=== PATIENT | female | born 1975 | race Caucasian/White ===

== ENCOUNTER 2016-03-01 19:48 | Emergency (ER) | payer OTHER ==
[~2016-03-01] VITALS: Ht 167.6 cm; Wt 102.1 kg
[~2016-03-01 19:48] MED LIST: CARB1CAP10 PO; LEVO137T3 PO; LORA0.5T12 PO
[2016-03-01 20:08] VITALS: Ht 167.6 cm; Wt 102.1 kg
[2016-03-01] MEDS ORDERED: OXYCODONE IR HOME PACK PO ONE (21:00)
[2016-03-01 21:27] LABS: URINE APPEARANCE CLOUDY (CLEAR); URINE BILIRUBIN NEG (NEG); URINE COLOR YELLOW; URINE EPITHELIAL CELL AUTO >30 /lpf (0-5); URINE NITRITE NEG (NEG); URINE SPECIFIC GRAVITY 1.023 (1.000-1.030); UROBILINOGEN NEG (NEG)
[2016-03-01] MEDS ORDERED: LRS10 PO (21:33)
[2016-03-01 21:40] LABS: MANUAL MICROSCOPIC REQUIRED? NO; REVIEW REQ? NO
[2016-03-01] MEDS ORDERED: IBUP-1050 PO (21:44)
[2016-03-01] MEDS ORDERED: NITROFURANTOIN MONOHYDRATE 100 MG CAP PO STA (21:51)
[2016-03-01] MEDS ORDERED: OXYC1TAB3 PO (21:54)
[2016-03-01] MEDS ORDERED: NITR-5 PO (21:54)
[2016-03-01 22:11] VITALS: BP 151/108; PULSE 75; TEMP 36.9; O2SAT 100
--- NOTE | 2016-03-01 22:41 | EMERGENCY ROOM VISIT NOTE ---
History Report prepared by Geremias: Macey Mcclure Under the Supervision of: Dr. Timmy Reich M.D. First contact with patient: 20:14 Chief Complaint: KIDNEY STONE Stated Complaint: KIDNEY STONE, NAUSEA, PAIN, BURNING, DIZZY History of Present Illness The patient is a 40 year old female who presents to the Emergency Room with complaints of constant back pain beginning 2 weeks ago. The patient states that 2 weeks ago she was going to put her dog down and she felt like she slipped something in her back. She reports that she went to see her doctor 2 days later and was found to have a bulged disc in her back. She went to [facility] and had a CT scan and she was found to have a 7mm stone in her right kidney so they told her she needed to come here for urology follow up. She rates her pain as an 8.5/10 in severity. She notes that her pain radiates into her knee and a burning radiation into her groin. The patient has associated nausea, dizziness, urinary frequency, darker urine, and diarrhea.She denies any urinary incontinence, weakness and new numbness. The patient had the CT results on her cell phone. The CT from [facility] reports a broad based disc bulge that is greater on the right side at T12/L1. Bilateral nonobstructing renal calculi 7mm on the right side 4mm on the left side. Source of History: patient Onset: 2 weeks ago Position: back Symptom Intensity: 8.5/10 Quality: burning Timing: constant Modifying Factors (Worsening): movement Associated Symptoms: + diarrhea, + nausea, + urinary symptoms, No numbness Note: The patient has associated dizziness, urinary frequency, darker urine.She denies any urinary incontinence and new numbness Review of Systems See HPI for pertinent positives & negatives. A total of 10 systems reviewed and were otherwise negative. Past Medical & Surgical Medical Problems: (1) Asthma (2) Hypothyroid Family History Cancer Diabetes mellitus Hypertension Kidney disease Social History Smoking Status: Never Smoker Alcohol Use: occasionally Drug Use: none Marital Status: single Housing Status: lives alone Occupation Status: employed Current/Historical Medications Scheduled Carbamazepine (Tegretol-Xr), 100 MG PO DAILY Citalopram (Citalopram Hydrobromide), 20 MG PO DAILY Levothyroxine Sodium (Levothyroxine Sodium), 137 MCG PO DAILY Nitrofurantoin Monohyd Macrocr (Macrobid), 100 MG PO BID Scheduled PRN Acetaminophen (Tylenol), 1,000 MG PO Q8 PRN for Pain Albuterol Hfa (Ventolin Hfa), 2 PUFFS INH QID PRN for Asthma Symptoms Baclofen (Baclofen), 5 MG PO TID PRN for Muscle Spasm Epinephrine (Epipen), 0.3 MG IM UD PRN for Anxiety Ibuprofen (Advil), 800 MG PO Q8 PRN for Pain Lorazepam (Lorazepam), 0.5 MG PO BID PRN for Anxiety Oxycodone Ir (Roxicodone Ir), 5 MG PO Q4H PRN for Pain Allergies Coded Allergies: Clindamycin (Verified Allergy, Severe, RED FACE, WHEEZING, 02/17/16) Hydrocodone (Verified Allergy, Severe, RED FACE, WHEEZING, 02/17/16) Ketorolac Tromethamine (Verified Allergy, Severe, RED FACE, 02/17/16) Metoclopramide (Verified Allergy, Severe, INCREASED HEART RATE, 02/17/16) ONLY IV Oxycodone (Verified Allergy, Severe, RED FACE, WHEEZING, 02/17/16) Tramadol (Verified Allergy, Severe, RED FACE, WHEEZING, 02/17/16) Eucalyptus Oil (Verified Allergy, Intermediate, skin pedro, gets red., ) Iodinated Diagnostic Agents (Verified Allergy, Intermediate, anaphylactic , 02/17/16) Metaxalone (Verified Allergy, Intermediate, flushed, red, wheezy, nauseous., 02/17/16) Sulfa Antibiotics (Verified Allergy, Intermediate, red face, wheezing, ) Codeine (Unverified Allergy, Mild, 02/17/16) Shellfish (Unverified Allergy, Mild, 02/17/16) Fentanyl (Verified Allergy, Unknown, HOT/SICK, 02/17/16) Diphenhydramine (Verified Adverse Reaction, Severe, INCREASED HEART RATE, 02/17/16) IF GIVEN FAST IV PUSH Physical Exam Vital Signs Date Time Temp Pulse Resp B/P Pulse Ox O2 Delivery O2 Flow Rate FiO2 03/01/16 22:11 36.9 75 18 151/108 100 03/01/16 20:08 36.9 86 20 138/95 100 Room Air Physical Exam Constitutional: Vital signs reviewed. Eyes: Pupils are equal round reactive to light. Conjunctiva are noninjected. ENT: Pharynx is clear without erythema or exudate. Mucous membranes are moist. Neck supple without meningeal signs. Respiratory: Clear to auscultation bilaterally. Breath sounds are equal bilaterally. Cardiovascular: Regular rate and rhythm. No rubs or gallops. GI: Soft, nondistended and nontender. Bowel sounds are present. Musculoskeletal: Positive straight leg raise bilaterally, greater on the right side. No CVA tenderness. Integumentary: No cyanosis. Neurological: The patient is awake and alert. No focal deficits. Motor and sensation are intact in the lower extremities bilaterally. Psychiatric: Normal affect. Medical Decision & Procedures Laboratory Results Test 03/01/16 20:55 Urine Color YELLOW Urine Appearance CLOUDY (CLEAR) Urine pH 6.0 (4.5-7.5) Urine Specific [place] 1.023 (1.000-1.030) Urine Protein NEG (NEG) Urine Glucose (UA) NEG (NEG) Urine Ketones NEG (NEG) Urine Occult Blood NEG (NEG) Urine Nitrite NEG (NEG) Urine Bilirubin NEG (NEG) Urine Urobilinogen NEG (NEG) Urine Leukocyte Esterase TRACE (NEG) Urine WBC (Auto) 10-30 /hpf (0-5) Urine RBC (Auto) 0-4 /hpf (0-4) Urine Hyaline Casts (Auto) 1-5 /lpf (0-5) Urine Epithelial Cells (Auto) >30 /lpf (0-5) Urine Bacteria (Auto) 2+ (NEG) Laboratory results as reviewed by me. Medications Administered Medications (Trade) Dose Ordered Sig/[place] Route Start Time Stop Time Status Last Admin Dose Admin Oxycodone HCl (Roxicodone Immediate Rel 5MG Home Pack) 1 homepack UD ONCE PO 03/01/16 21:00 03/01/16 21:01 DC 03/01/16 22:03 1 HOMEPACK Nitrofurantoin Macrocrystals (Macrobid Cap) 100 mg NOW STAT PO 03/01/16 21:51 03/01/16 21:53 DC 03/01/16 22:03 100 MG ED Course 2036: The patient was evaluated in room B6. A complete history and physical exam was performed. 2100: Oxycodone HCl 1 homepack PO. 0: I discussed the urine test with the patient and the treatment plan. 2150: Macrobid Cap 100mg PO. 2155: Upon reevaluation, the patient appeared to have improvement of her symptoms. I discussed tonight's findings with the patient . She verbalized agreement of the treatment plan. The patient was discharged home. Medical Decision This is a 40-year-old female who presents with right-sided lower back pain. Differential diagnosis includes lumbar disc disease, radiculopathy, kidney stone , UTI, strain. I did perform a limited focused review of portions of the patient's old chart on the electronic medical record. The patient had a CT in November which showed bilateral kidney stones and some fluid-filled mildly thickened proximal jejunal loops. I did evaluate the patient as noted above. The patient is presenting with pain in her lower back which developed after putting her dog down. She had a CT scan at another hospital which demonstrates a disc bulge on the right side at T12 and L1. She does have pain radiating into her groin and leg. Her symptoms are consistent with radiculopathy. She does have intrarenal calculi which are likely not causing her pain. There is no evidence of obstructive uropathy. She also has no signs of cauda equina syndrome or neurologic deficit to suggest spinal cord injury. I did recommend she follow up with her doctor for physical therapy or referral to spinal surgery. She was also advised follow up with a urologist as needed. I did order a urinalysis which was equivocal. After discussion with the patient she preferred to be treated although she does not have any urinary symptoms. A urine culture was sent. The patient was given Macrobid and the oxycodone home pack. She is not allergic to oxycodone. She has had in the past without reaction. She was discharged with a prescription for oxycodone and Macrobid. [place] Drug Monitoring Program Search Results: patient reviewed within database Drug Monitoring Findings: She received 6 Percocet February 19, 2016. Impression Primary Impression: Lumbar radiculopathy Additional Impression: Abnormal finding on urinalysis Scribe Attestation The scribe's documentation has been prepared under my direct and personally reviewed by me in its entirety. I confirm that the note above accurately reflects all work, treatment, procedures, and medical decision making performed by me. Departure Information Dispostion Home / Self-Care Prescriptions Oxycodone Ir (Roxicodone Ir) 5 Mg Tab 5 MG PO Q4H Y for Pain, #14 TAB Prov: Timmy Reich M.D. 03/01/16 Nitrofurantoin Monohyd Macrocr (Macrobid) 100 Mg Cap 100 MG PO BID, #13 CAP Prov: Timmy Reich M.D. 03/01/16 Referrals No Doctor, Assigned (PCP) Forms HOME CARE DOCUMENTATION FORM, IMPORTANT VISIT INFORMATION Patient Instructions A Signature Page, ED Back Pain Acute Chronic, [facility] Additional Instructions You have been examined and treated today on an emergency basis only. This is not a substitute for, or an effort to provide, complete comprehensive medical care. It is impossible to recognize and treat all injuries or illnesses in a single emergency department visit. It is therefore important that you follow up closely with your physician. Call as soon as possible for an appointment. Return for worsening symptoms or if you develop fever, vomiting, abdominal pain , loss of control of your bowel or bladder, numbness or weakness to your legs, numbness to your private area, difficulty urinating, or any other concerning symptoms.
[2016-03-31] MEDS ORDERED: OXYC1TAB3 PO (12:23)
[2016-10-20] MEDS ORDERED: OXYC-57 PO (14:26)
[2016-10-20] MEDS ORDERED: XRL15 PO (14:26)
[2016-10-21] MEDS ORDERED: XRL15 PO (14:46)
[2016-10-21] MEDS ORDERED: VNTHFA/IN INH (14:47)
[2017-01-02] MEDS ORDERED: XRL15 PO (17:20)
== END 2016-03-01 22:12 | disposition home or self-care (01) ==
LOC: C.EDB 19:50
DX: M54.16 Radiculopathy, lumbar region (principal); R82.90 Unspecified abnormal findings in urine; J45.909 Unspecified asthma, uncomplicated; E03.9 Hypothyroidism, unspecified; N20.0 Calculus of kidney

== ENCOUNTER → 2016-03-24 | Outpatient (CLI) | payer OTHER ==
[~2016-03-24] MED LIST changes: +ACET-1256 PO; +AMT50 PO; +ATV5X PO; -CARB1CAP10 PO; +CLX/20 PO; +CYCL10TA6 PO; +EPP3/2 IM; +IBUP-1050 PO; -LEVO137T3 PO; -LORA0.5T12 PO; +LRS10 PO; +METH500T PO; +NAPR-1169 PO; +NITR-5 PO; +OXYC-57 PO; +OXYC1TAB3 PO; +PRED20TA2 PO; +PREG1CAP36 PO; +SYN137 PO; +TGRSR100 PO; +VNTHFA/IN INH; +XRL15 PO
--- NOTE | 2016-03-24 08:46 | DIAGNOSTIC IMAGING REPORT ---
KUB CLINICAL HISTORY: Nephrolithiasis. COMPARISON STUDY: CT of the abdomen and pelvis December 01, 2015. FINDINGS: There is a 5 mm calculus within lower pole of the left kidney and a 4 mm calculus within the lower pole of the right kidney. No ureteral calculi are identified. A left inferior pelvic calcification represents a phlebolith. The bowel gas pattern is normal. IMPRESSION: 1. Bilateral nephrolithiasis. 2. No ureteral calculi identified. Electronically signed by: Martin Joyce M.D. 03/24/2016 8:44 AM Dictated Date/Time: 03/24/2016 8:42 AM
[2016-03-24 09:32] LABS: URINE APPEARANCE CLEAR (CLEAR); URINE BILIRUBIN NEG (NEG); URINE COLOR YELLOW; URINE NITRITE NEG (NEG); URINE PH 5.5 (4.5-7.5); URINE SPECIFIC GRAVITY 1.023 (1.000-1.030); UROBILINOGEN NEG (NEG)
[2016-03-24 09:38] LABS: MANUAL MICROSCOPIC REQUIRED? NO; REVIEW REQ? NO
[2016-03-24 09:45] LABS: BLOOD UREA NITROGEN 13 mg/dl (7-18); BUN/CREATININE RATIO 13.4 (10-20); CARBON DIOXIDE 23 mmol/L (21-32); CHLORIDE 107 mmol/L (98-107); CREATININE 0.99 mg/dl (0.60-1.20); POTASSIUM 4.1 mmol/L (3.5-5.1); SODIUM 140 mmol/L (136-145)
[2016-03-24 09:53] LABS: BASO % 0.5 %; BASO ABS # 0.03 K/uL (0-0.2); EOS % 3.7 %; HEMATOCRIT 41.4 % (37-47); IG% 0.2 %; MEAN CELL VOLUME 86.3 fL (80-100); MEAN CORPUSCULAR HEMOGLOBIN 29.2 pg (25-34); MEAN CORPUSCULAR HGB CONC 33.8 g/dl (32-36); MONO % 8.6 %; PLATELET COUNT 285 K/uL (130-400)
[2016-03-24 10:36] LABS: COMPLETE YES
== END | disposition home or self-care (01) ==
LOC: C.RAD 07:48
PROVIDERS: ATTEND Urology
DX: N20.0 Calculus of kidney (principal)

== ENCOUNTER 2016-03-26 21:05 | Emergency (ER) | payer OTHER ==
[~2016-03-26] VITALS: Ht 167.6 cm; Wt 104.0 kg
[~2016-03-26 21:05] MED LIST changes: -ACET-1256 PO; -AMT50 PO; -ATV5X PO; -CLX/20 PO; -CYCL10TA6 PO; -EPP3/2 IM; -METH500T PO; -NAPR-1169 PO; -OXYC-57 PO; -PRED20TA2 PO; -PREG1CAP36 PO; -SYN137 PO; -TGRSR100 PO; -VNTHFA/IN INH; -XRL15 PO
[2016-03-26 21:08] VITALS: TEMP 36.5; Ht 167.6 cm; Wt 104.0 kg
[2016-03-26] MEDS ORDERED: SODIUM CHLORIDE 0.9% 1000ML 500 ML IV ONE (21:23)
[2016-03-26] MEDS ORDERED: ONDANSETRON 8 MG/54 ML D5W IV STA (21:56)
[2016-03-26 22:00] LABS: HEMATOCRIT 40.8 % (37-47); MEAN CORPUSCULAR HEMOGLOBIN 30.1 pg (25-34); MEAN CORPUSCULAR HGB CONC 34.6 g/dl (32-36); MEAN PLATELET VOLUME 9.4 fL (7.4-10.4); PLATELET COUNT 286 K/uL (130-400); RED BLOOD COUNT 4.69 M/uL (4.2-5.4); WHITE BLOOD COUNT 7.58 K/uL (4.8-10.8)
[2016-03-26] MEDS: HYDROmorphone INJ 1 MG/ML SYR IV PRN ×2 (22:10→23:47)
[2016-03-26 22:13] LABS: URINE APPEARANCE CLEAR (CLEAR); URINE BILIRUBIN NEG (NEG); URINE COLOR YELLOW; URINE EPITHELIAL CELL AUTO >30 /lpf (0-5); URINE NITRITE NEG (NEG); URINE SPECIFIC GRAVITY 1.019 (1.000-1.030); UROBILINOGEN NEG (NEG); ZZUR CULT IF INDIC CLEAN CATCH NO
[2016-03-26 22:14] LABS: MANUAL MICROSCOPIC REQUIRED? NO; REVIEW REQ? NO
[2016-03-26 22:16] LABS: BUN/CREATININE RATIO 14.7 (10-20); CALCIUM 8.6 mg/dl (8.5-10.1); CREATININE 1.1 mg/dl (0.60-1.20)
--- NOTE | 2016-03-26 22:47 | DIAGNOSTIC IMAGING REPORT ---
ABDOMEN AND PELVIS CT WITHOUT CONTRAST CT DOSE: 1566.10 mGy.cm HISTORY: Pain right flank pain TECHNIQUE: Multiaxial CT images of the abdomen and pelvis were performed without the use of intravenous and oral contrast according to the standard department stone protocol. COMPARISON STUDY: 12/01/2015 FINDINGS: Lung bases remain clear. Liver spleen and pancreas are unremarkable. Prior cholecystectomy. Bilateral nonobstructing renal calcifications unchanged in the prior study. No evidence for an obstructing urinary tract calculus. Nonobstructive bowel pattern. Small amount of free fluid surrounding the right ovary possibly on the basis of a small partial cyst rupture. Nonobstructive bowel pattern. The appendix is not well seen although a significant right lower quadrant inflammatory process is not appreciated. IMPRESSION: 1. Small bilateral nonobstructing renal calcifications. 2. No evidence for an obstructing urinary tract calculus. 3. Nonobstructive bowel pattern. 4. Probable small partially ruptured right ovarian cyst. Electronically signed by: Skinny Botello M.D. 03/26/2016 10:45 PM Dictated Date/Time: 03/26/2016 10:41 PM
[2016-03-27] MEDS ORDERED: OXYC1TAB3 PO (00:28)
[2016-03-27] MEDS ORDERED: OXYCODONE IR HOME PACK PO ONE (00:30)
[2016-03-27 01:02] VITALS: BP 132/71; PULSE 76; O2SAT 97
--- NOTE | 2016-03-27 03:16 | EMERGENCY ROOM VISIT NOTE ---
History Report prepared by Geremias: Dereck Redman Under the Supervision of: Dr. Rodriguez Mendez M.D. First contact with patient: 21:46 Chief Complaint: FLANK PAIN Stated Complaint: KIDNEY STONES History of Present Illness The patient is a 40 year old female who presents to the Emergency Room with complaints of persistent right flank pain for the past few days. She rates the discomfort as an 8.5 out of 10 in severity and describes it as a stabbing pain. This discomfort radiates into her abdomen. She also complains of nausea and diarrhea. The patient had an appointment 2 days ago where they did blood-work and x-rays. The patient talked with Dr. Montes earlier today who recommended she present to the ED for further evaluation to see if an emergent procedure is necessary after doing further testing. Pt denies LOC, headache, fevers, chills, diaphoresis, visual changes, neck pain, chest pain, breathing difficulties, vomiting, melena, hematochezia, numbness, weakness, lymphadenopathy, rash, or other complaints. Source of History: patient Onset: past few days Position: other (right flank) Symptom Intensity: 8.5/10 Quality: stabbing Timing: other (persistent) Associated Symptoms: + abdominal pain (radiation to abdomen), + diarrhea, + nausea Review of Systems See HPI for pertinent positives and negatives. A total of ten systems were reviewed and were otherwise negative. Past Medical & Surgical Medical Problems: (1) Asthma (2) Hypothyroid Family History Cancer Diabetes mellitus Hypertension Kidney disease Social History Smoking Status: Never Smoker Alcohol Use: occasionally Drug Use: none Marital Status: single Housing Status: lives alone Occupation Status: employed Current/Historical Medications Scheduled Carbamazepine (Tegretol-Xr), 100 MG PO DAILY Citalopram (Citalopram Hydrobromide), 20 MG PO DAILY Levothyroxine Sodium (Levothyroxine Sodium), 137 MCG PO DAILY Scheduled PRN Acetaminophen (Tylenol), 1,000 MG PO Q8 PRN for Pain Albuterol Hfa (Ventolin Hfa), 2 PUFFS INH QID PRN for Asthma Symptoms Epinephrine (Epipen), 0.3 MG IM UD PRN for Anxiety Ibuprofen (Advil), 800 MG PO Q8 PRN for Pain Lorazepam (Lorazepam), 0.5 MG PO BID PRN for Anxiety Oxycodone Ir (Roxicodone Ir), 1-2 TAB PO Q4H PRN for Pain Allergies Coded Allergies: Clindamycin (Verified Allergy, Severe, RED FACE, WHEEZING, 03/26/16) Hydrocodone (Verified Allergy, Severe, RED FACE, WHEEZING, 03/26/16) Ketorolac Tromethamine (Verified Allergy, Severe, RED FACE, 03/26/16) Metoclopramide (Verified Allergy, Severe, INCREASED HEART RATE, 03/26/16) ONLY IV Oxycodone (Verified Allergy, Severe, RED FACE, WHEEZING, 03/26/16) Tramadol (Verified Allergy, Severe, RED FACE, WHEEZING, 03/26/16) Eucalyptus Oil (Verified Allergy, Intermediate, skin pedro, gets red., ) Iodinated Diagnostic Agents (Verified Allergy, Intermediate, anaphylactic , 03/26/16) Metaxalone (Verified Allergy, Intermediate, flushed, red, wheezy, nauseous., 03/26/16) Sulfa Antibiotics (Verified Allergy, Intermediate, red face, wheezing, ) Codeine (Unverified Allergy, Mild, 03/26/16) Shellfish (Unverified Allergy, Mild, 03/26/16) Fentanyl (Verified Allergy, Unknown, HOT/SICK, 03/26/16) Diphenhydramine (Verified Adverse Reaction, Severe, INCREASED HEART RATE, 03/26/16) IF GIVEN FAST IV PUSH Physical Exam Vital Signs Date Time Temp Pulse Resp B/P Pulse Ox O2 Delivery O2 Flow Rate FiO2 03/27/16 01:02 76 16 132/71 97 03/27/16 00:40 74 16 137/76 99 Room Air 03/26/16 22:44 70 18 133/85 100 Room Air 03/26/16 21:08 36.5 18 149/103 97 Room Air Physical Exam GENERAL: Awake, alert, uncomfortable-appearing, in no distress HENT: Normocephalic, atraumatic. Oropharynx unremarkable. EYES: Normal conjunctiva. Sclera non-icteric. NECK: Supple. No nuchal rigidity. FROM. No JVD. RESPIRATORY: Clear to auscultation. CARDIAC: Regular rate, normal rhythm. Extremities warm and well perfused. Pulses equal. ABDOMEN: Soft, non-distended. No rebound or guarding. No masses. RECTAL: Deferred. MUSCULOSKELETAL: Chest examination reveals no tenderness. The back is symmetrical on inspection without obvious abnormality. Right CVA tenderness to palpation. Right flank tenderness. No joint edema. LOWER EXTREMITIES: Calves are equal size bilaterally and non-tender. No edema. No discoloration. NEURO: Normal sensorium. No sensory or motor deficits noted. SKIN: No rash or jaundice noted. Medical Decision & Procedures ER Provider Diagnostic Interpretation: Other radiology results as stated below per my review and radiologist interpretation ABDOMEN AND PELVIS CT WITHOUT CONTRAST CT DOSE: 1566.10 mGy.cm HISTORY: Pain right flank pain TECHNIQUE: Multiaxial CT images of the abdomen and pelvis were performed without the use of intravenous and oral contrast according to the standard department stone protocol. COMPARISON STUDY: 12/01/2015 FINDINGS: Lung bases remain clear. Liver spleen and pancreas are unremarkable. Prior cholecystectomy. Bilateral nonobstructing renal calcifications unchanged in the prior study. No evidence for an obstructing urinary tract calculus. Nonobstructive bowel pattern. Small amount of free fluid surrounding the right ovary possibly on the basis of a small partial cyst rupture. Nonobstructive bowel pattern. The appendix is not well seen although a significant right lower quadrant inflammatory process is not appreciated. IMPRESSION: 1. Small bilateral nonobstructing renal calcifications. 2. No evidence for an obstructing urinary tract calculus. 3. Nonobstructive bowel pattern. 4. Probable small partially ruptured right ovarian cyst. Electronically signed by: Skinny Botello M.D. 03/26/2016 10:45 PM Dictated Date/Time: 03/26/2016 10:41 PM Laboratory Results 03/26/16 21:47 03/26/16 21:47 Test 03/26/16 21:36 03/26/16 21:47 Urine Color YELLOW Urine Appearance CLEAR (CLEAR) Urine pH 7.0 (4.5-7.5) Urine Specific [place] 1.019 (1.000-1.030) Urine Protein NEG (NEG) Urine Glucose (UA) NEG (NEG) Urine Ketones TRACE (NEG) Urine Occult Blood NEG (NEG) Urine Nitrite NEG (NEG) Urine Bilirubin NEG (NEG) Urine Urobilinogen NEG (NEG) Urine Leukocyte Esterase NEG (NEG) Urine WBC (Auto) 1-5 /hpf (0-5) Urine RBC (Auto) 0-4 /hpf (0-4) Urine Hyaline Casts (Auto) 1-5 /lpf (0-5) Urine Epithelial Cells (Auto) >30 /lpf (0-5) Urine Bacteria (Auto) NEG (NEG) Red Blood Count 4.69 M/uL (4.2-5.4) Mean Corpuscular Volume 87.0 fL (80-100) Mean Corpuscular Hemoglobin 30.1 pg (25-34) Mean Corpuscular Hemoglobin Concent 34.6 g/dl (32-36) RDW Standard Deviation 41.8 fL (36.4-46.3) RDW Coefficient of Variation 13.1 % (11.5-14.5) Mean Platelet Volume 9.4 fL (7.4-10.4) Anion Gap 12.0 mmol/L (3-11) Est Creatinine Clear Calc Drug Dose 82.0 ml/min Estimated GFR () 72.2 Estimated GFR (Non- 62.3 BUN/Creatinine Ratio 14.7 (10-20) Calcium Level 8.6 mg/dl (8.5-10.1) Laboratory results reviewed by me Medications Administered Medications (Trade) Dose Ordered Sig/Babar Route Start Time Stop Time Status Last Admin Dose Admin Sodium Chloride (Nss 1000ml) 500 ml @ 999 mls/hr Q31M ONCE IV 03/26/16 21:23 03/26/16 21:53 DC 03/26/16 22:11 999 MLS/HR Hydromorphone HCl (Dilaudid Inj) 1 mg Q15M PRN IV 03/26/16 22:00 03/27/16 01:42 DC 03/26/16 23:47 1 MG Ondansetron HCl (Zofran 8mg Iv) 8 mg NOW STAT IV 03/26/16 21:56 03/26/16 21:58 DC 03/26/16 22:10 8 MG ED Course 2122: Ordered NSS 500 ml @ 999 mls/hr IV. 2152: The patient was evaluated in room A3. A complete history and physical exam was performed. 2155: Ordered Zofran 8 mg Iv 8 mg. 2199: Ordered Dilaudid Inj 1 mg IV/pain. 2344: At this time, I discussed the patient's case with Dr. Montes - U[facility] [place] and he agreed to follow-up with patient in the clinic this week. 2358: I reevaluated the patient. Discussed results and discharge instructions: She verbalized understanding and agreement. The patient is ready for discharge. 0030: Ordered Oxycodone HCl 1 homepack PO. 0043: I reevaluated the patient. Discussed results and discharge instructions: She verbalized understanding and agreement. The patient is ready for discharge. Medical Decision Prior records/ancillary studies reviewed. Triage Nursing notes reviewed and agree them. Additional history obtained from the family. The patient's history was concerning for flank and abdominal pain. Differential diagnosis: Etiologies such as renal colic, appendicitis, diverticulitis, mesenteric ischemia, aortic pathology, infections, inflammatory bowel disease, PUD, biliary pathology, UTI, as well as others were entertained. Physical examination findings: As above. ER treatment provided: IV Dilaudid 2, IV normal saline, Zofran On reassessment the patient felt better. Diagnostic interpretation by me: The labs revealed an unremarkable cc, chemistry panel, and urinalysis. There was no sign of UTI. Imaging studies: CT of the abdomen and pelvis as above. Clinically the patient is doing well. She was insistent that urology would want to evaluate her here. I did agree to contact urology even though she had excellent test results. Consultation: A consultation was placed with the urologist, Dr. Montes. The case was discussed and diagnostics were reviewed. The patient will be followed up from the office. From his perspective, no emergent urologic intervention is necessary at this time. I agree. By the evaluation outlined above emergent etiologies such as appendicitis, diverticulitis, mesenteric ischemia, aortic pathology, infections, inflammatory bowel disease, PUD, biliary pathology, UTI, as well as others were deemed relatively unlikely. The patient and family were informed about the findings as listed above. All questions were answered and they were pleased with the treatment. Return instructions were outlined and the patient was discharged in stable condition. Outpatient prescription management: Oxy IR 5mg 1-2 po Q4 hrs prn-this is listed as an allergy although the patient states that she can take this without difficulty Referral: The pt was referred to [facility] for follow up care regarding their stone. The chart was completed utilizing [employer] voice recognition software. Grammatical errors, random word insertions, pronoun errors, and incomplete sentences are an occasional consequence of this system due to software limitations, ambient noise, and hardware issues. Any formal questions or concerns about the content, text, or information contained within the body of this dictation should be directly addressed to the physician for clarification. [place] Drug Monitoring Program Search Results: patient reviewed within database (scripts noted, but no significant issues noted) Consults Time Called: [phone] Consulting Physician: Dr. Montes - Urology [facility] [place] Returned Call: [phone] At this time, I discussed the patient's case with Dr. Montes and he agreed to follow-up with patient in the clinic this week. Impression Primary Impression: Right flank pain Additional Impressions: Right ovarian cyst Nephrolithiasis Scribe Attestation The scribe's documentation has been prepared under my direction and personally reviewed by me in its entirety. I confirm that the note above accurately reflects all work, treatment, procedures, and medical decision making performed by me. Departure Information Dispostion Home / Self-Care Prescriptions Oxycodone Ir (Roxicodone Ir) 5 Mg Tab 1-2 TAB PO Q4H Y for Pain, #10 TAB Prov: Rodriguez Mendez MD 03/27/16 Referrals Michael Markham MD, Urology (PCP) Forms HOME CARE DOCUMENTATION FORM, IMPORTANT VISIT INFORMATION Patient Instructions My [facility] Additional Instructions Oxycodone Immediate Release (OxyIR) 5mg: Take 1-2 pills every four hours for pain. Avoid alcohol, operating machinery or dangerous equipment, working on ladders or roofs, DRIVING, or situations where being under the influence may be dangerous. It is recommended to use an xpno-smf-aevlvux stool softener such as Colace, 100mg twice daily while taking this medication to avoid constipation. Ibuprofen(Motrin, Advil) may be used for fever or pain. Use 600mg every six hours as needed. Take with food. Avoid using more than 2400mg in a 24 hour period. Do not use 2400mg per day for more than three consecutive days without physician direction. Prolonged inappropriate use can lead to stomach upset or ulcers. This medication can be taken if you need to drive, work, or perform activities which may be dangerous when taking narcotic pain medication. (AND/OR) Acetaminophen(Tylenol) may be used for fever or pain. Use 1000mg every six hours as needed. Avoid using more than 4000mg in a 24 hour period. This medication can be taken if you need to drive, work, or perform activities which may be dangerous when taking narcotic pain medication. Rest and avoid strenuous activity until your symptoms resolve. Drink plenty of fluids. Return to the ER for worsening abdominal or back pain, vomiting, fevers, passing out, or as needed. Follow up with [facility] tomorrow, [phone], to arrange a visit. Problem Qualifiers
[2016-03-31] MEDS ORDERED: OXYC1TAB3 PO (12:23)
[2016-10-20] MEDS ORDERED: XRL15 PO (14:26)
[2016-10-20] MEDS ORDERED: OXYC-57 PO (14:26)
[2016-10-21] MEDS ORDERED: XRL15 PO (14:46)
[2016-10-21] MEDS ORDERED: VNTHFA/IN INH (14:47)
== END 2016-03-27 01:03 | disposition home or self-care (01) ==
LOC: C.EDB 21:06 → C.EDA 03-27 01:03
DX: N83.201 Unspecified ovarian cyst, right side (principal); N20.0 Calculus of kidney; J45.909 Unspecified asthma, uncomplicated; E03.9 Hypothyroidism, unspecified

== ENCOUNTER → 2016-03-31 | Day surgery (SDC) | payer OTHER ==
[2016-03-28 08:23] VITALS: Ht 167.6 cm; Wt 101.8 kg
[~2016-03-31] VITALS: Ht 167.6 cm; Wt 101.8 kg
[~2016-03-31] MED LIST changes: +ACET-1256 PO; +AMT50 PO; +ATROPINE SULFATE 0.1 MG/ML 5ML SYR IV PRN; +ATV5X PO; +CIPROFLOXACIN 400MG / D5W IV SCH; +CLX/20 PO; +CYCL10TA6 PO; +EPP3/2 IM; +EpHEDrine SULFATE INJ 50 MG/ML AMP IV PRN; +FLUMAZENIL 0.1 MG/1 ML 10 ML VIAL IV PRN; +HYDROmorphone INJ 0.5 MG/0.5 ML SYR IV PRN; +HYDROmorphone INJ 1 MG/ML SYR ONE; +LABETALOL HCL IV 5 MG/ML 20ML IV PRN; +LACTATED RINGER'S 1000ML 1,000 ML IV SCH; +LIDOCAINE HCL 2% 2 ML VIAL (20MG/ML) ONE; -LRS10 PO; +MEPERIDINE HCL 50 MG/ML CARP IV PRN; +MEPERIDINE HCL 50 MG/ML CARP ONE; +METH500T PO; +MIDAZOLAM HCL 1 MG/ML 2ML VIAL ONE; +NALOXONE HCL 0.4 MG/1 ML VIAL/CARP IV PRN; +NAPR-1169 PO; -NITR-5 PO; +ONDANSETRON INJ 2 MG/ML 2 ML VIAL IV PRN; +ONDANSETRON INJ 2 MG/ML 2 ML VIAL ONE; +OXYC-57 PO; +OXYCODONE/ACETAMINOPHEN 5-325 TAB PO PRN; +PHENYLEPHRINE 100MCG/ML 5ML SYR IV PRN; +PRED20TA2 PO; +PREG1CAP36 PO; +PROPOFOL IV EMULSION 10 MG/ML 20 ML VIAL IV ONE; +SYN137 PO; +TGRSR100 PO; +VNTHFA/IN INH; +XRL15 PO
--- NOTE | 2016-03-31 11:05 | History & Physical Bridge Note ---
H&P Re-Evaluation Bridge Note: I have examined the patient, reviewed the History & Physical and in the interval since the performance of the History & Physical I have noted the following changes of clinical significance: No changes noted
--- NOTE | 2016-03-31 11:13 | DIAGNOSTIC IMAGING REPORT ---
KUB HISTORY: Pre-op. N20.0 Nephrolithiasis BE DONE EITHER THE NIGHT BEFORE OR MORNI COMPARISON: KUB 03/24/2016. FINDINGS: The bowel gas pattern is unremarkable. There are no dilated loops of small bowel to suggest an obstruction. Bilateral nephrolithiasis. Dominant stone within the lower pole the left kidney measures 5 mm. These remain unchanged. No ureteral or bladder calculi. Prior cholecystectomy. No pneumoperitoneum or pneumatosis. IMPRESSION: Stable bilateral nephrolithiasis. Electronically signed by: Lauri Thompson M.D. 03/31/2016 11:12 AM Dictated Date/Time: 03/31/2016 11:11 AM
--- NOTE | 2016-03-31 13:26 | Discharge Instructions ---
Discharge Instructions Admission Reason for Admission: Stones Discharge Discharge Diagnosis / Problem: Right renal stones s/p ESWL Discharge Goals Goal(s): Improve function, Improve disease control, Therapeutic intervention Activity Recommendations Activity Limitations: as noted below Lifting Limitations: gradually increase as tolerated Exercise/Sports Limitations: rest today May Resume Sexual Activity: when tolerated Shower/Bathe: no limitations Driving or Machine Use: resume 1 day after discharge . Instructions / Follow-Up Instructions / Follow-Up Follow-up as planned in office with KUB Xray prior to visit. Strain urine and bring in stone fragments to visit. Discharge Diet Recommended Diet: Regular Diet (good fluid intake) Procedures Procedures Performed: R renal ESWL Pending Studies Studies pending at discharge: no Medical Emergencies . Who to Call and When: Medical Emergencies: If at any time you feel your situation is an emergency, please call 911 immediately. . Non-Emergent Contact Non-Emergency issues call your: Urologist Call Non-Emergent contact if: you have a fever, temperature is above 101, your pain is not controlled, your pain is worsening, your pain is unusual for you, your pain is concerning you, you have any medication questions . . "Provider Documentation" section prepared by Michael Markham. VTE Core Measure Inpt VTE Proph given/why not?: SCD's [place] Drug Monitoring Program Search Results: patient reviewed within database, see additional documentation (2 Rx for oxycodone in last month, patient notes she took all her most recent, refill for post surgical pain provided)
--- NOTE | 2016-03-31 13:27 | [facility] Post Operative Brief Note ---
Immediate Operative Summary Operative Date Mar 31, 2016. Pre-Operative Diagnosis R renal stones Post-Operative Diagnosis Same Procedure(s) Performed R renal ESWL Surgeon Rashi Blanco Child And Adolescent Psychiatrist Surgeon(s) NA Estimated Blood Loss NA Findings Good stone fragmentation Specimens NA Drains NA Anesthesia [facility] Complication(s) None Disposition Recovery Room / PACU
--- NOTE | 2016-03-31 14:07 | OPERATIVE REPORT ---
DATE OF OPERATION: 03/31/2016 PREOPERATIVE DIAGNOSIS: Right renal stones. POSTOPERATIVE DIAGNOSIS: Same. PROCEDURE: Right-sided renal extracorporeal shockwave lithotripsy. SURGEON: Dr. Michael Markham. ASSOCIATE PRODUCT INTEGRITY ENGINEER: None. ANESTHESIA: General anesthesia with laryngeal mask. COMPLICATIONS: None. FINDINGS: Good stone fragmentation on fluoroscopy. DETAILS OF PROCEDURE: The patient was brought to the litho suite. She was correctly identified and the stone was visualized on his most recent x-rays. After the correct time out was performed the patient was positioned over the therapy head. An adequate level of anesthesia was administered. The extracorporeal shockwave lithotripsy treatment was then commenced. Please see the [place] Kidney Stone Management sheet for complete treatment summary. After completion of the procedure the patient was taken to the recovery room in stable condition. I attest to the content of the Intraoperative Record and any orders documented therein. Any exceptio ns are noted below.
--- NOTE | 2016-03-31 14:59 | Anesthesia Progress Nt - [facility] ---
Anesthesia Post Op Note Date & Time Mar 31, 2016 at 14:59 Vital Signs Pain Intensity: 3 Vital Signs Past 12 Hours Date Time Temp Pulse Resp B/P Pulse Ox O2 Delivery O2 Flow Rate FiO2 03/31/16 14:55 90 16 96 03/31/16 14:55 90 16 03/31/16 14:54 37.1 86 16 133/91 98 Room Air 03/31/16 14:53 133/91 03/31/16 14:50 88 18 98 03/31/16 14:50 89 18 03/31/16 14:49 134/88 03/31/16 14:48 134/88 03/31/16 14:45 83 21 03/31/16 14:45 82 21 100 03/31/16 14:43 143/100 03/31/16 14:40 82 11 03/31/16 14:40 82 11 98 03/31/16 14:38 143/110 03/31/16 14:35 87 15 99 03/31/16 14:35 86 15 03/31/16 14:33 138/106 03/31/16 14:30 84 17 03/31/16 14:30 86 17 149/99 100 03/31/16 14:28 154/103 03/31/16 14:25 79 15 03/31/16 14:25 80 15 100 03/31/16 14:23 150/111 03/31/16 14:20 78 17 03/31/16 14:20 80 17 100 03/31/16 14:18 149/106 03/31/16 14:15 76 12 100 03/31/16 14:15 76 12 03/31/16 14:13 146/95 03/31/16 14:10 83 24 100 03/31/16 14:10 84 24 03/31/16 14:08 154/100 03/31/16 14:05 87 17 100 03/31/16 14:05 85 17 03/31/16 14:03 154/95 03/31/16 14:00 76 15 03/31/16 14:00 76 15 100 03/31/16 13:58 133/103 03/31/16 13:55 36.6 82 12 136/98 100 Diffusion Mask 6 03/31/16 13:55 75 20 100 03/31/16 13:55 75 20 03/31/16 11:08 36.5 80 20 129/96 99 Room Air Notes Mental Status: alert / awake / arousable, participated in evaluation Pt Amnestic to Procedure: Yes Nausea / Vomiting: adequately controlled Pain: adequately controlled Airway Patency, RR, SpO2: stable & adequate BP & HR: stable & adequate Hydration State: stable & adequate Anesthetic Complications: no major complications apparent
[2016-03-31 15:02] VITALS: TEMP 36.9
[2016-03-31 15:25] VITALS: BP 120/79; PULSE 88; O2SAT 97
== END | disposition home or self-care (01) ==
LOC: X.SURG 10:35
PROVIDERS: ATTEND Urology
DX: N20.0 Calculus of kidney (principal); M54.9 Dorsalgia, unspecified; G89.29 Other chronic pain; Z79.899 Other long term (current) drug therapy

== ENCOUNTER → 2016-04-05 | Outpatient (CLI) | payer OTHER ==
[~2016-04-05] MED LIST changes: -ATROPINE SULFATE 0.1 MG/ML 5ML SYR IV PRN; -CIPROFLOXACIN 400MG / D5W IV SCH; -EpHEDrine SULFATE INJ 50 MG/ML AMP IV PRN; -FLUMAZENIL 0.1 MG/1 ML 10 ML VIAL IV PRN; -HYDROmorphone INJ 0.5 MG/0.5 ML SYR IV PRN; -HYDROmorphone INJ 1 MG/ML SYR ONE; -LABETALOL HCL IV 5 MG/ML 20ML IV PRN; -LACTATED RINGER'S 1000ML 1,000 ML IV SCH; -LIDOCAINE HCL 2% 2 ML VIAL (20MG/ML) ONE; -MEPERIDINE HCL 50 MG/ML CARP IV PRN; -MEPERIDINE HCL 50 MG/ML CARP ONE; -MIDAZOLAM HCL 1 MG/ML 2ML VIAL ONE; -NALOXONE HCL 0.4 MG/1 ML VIAL/CARP IV PRN; -ONDANSETRON INJ 2 MG/ML 2 ML VIAL IV PRN; -ONDANSETRON INJ 2 MG/ML 2 ML VIAL ONE; -OXYCODONE/ACETAMINOPHEN 5-325 TAB PO PRN; -PHENYLEPHRINE 100MCG/ML 5ML SYR IV PRN; -PROPOFOL IV EMULSION 10 MG/ML 20 ML VIAL IV ONE
--- NOTE | 2016-04-05 09:23 | DIAGNOSTIC IMAGING REPORT ---
KUB CLINICAL HISTORY: Nephrolithiasis. COMPARISON STUDY: CT of the abdomen and pelvis March 26, 2016 and KUB March 31, 2016 per FINDINGS: There are cholecystectomy clips. A calculus within the lower pole of the left kidney is again noted. The right renal calculus shown on prior exam is not visualized on this exam although the right renal shadow is partially obscured by stool. No ureteral calculi are identified. IMPRESSION: 1. Nonvisualization of the right renal calculus shown on prior exam. No ureteral calculi identified. 2. Left sided nephrolithiasis. Electronically signed by: Martin Joyce M.D. 04/05/2016 9:21 AM Dictated Date/Time: 04/05/2016 8:48 AM
== END | disposition home or self-care (01) ==
LOC: C.RAD 07:52
PROVIDERS: ATTEND Urology
DX: N20.0 Calculus of kidney (principal)

== ENCOUNTER → 2016-04-05 | Outpatient (CLI) | payer OTHER | END | disposition home or self-care (01) | LOC: C.LABSPEC 17:10 | PROVIDERS: ATTEND Urology | DX: N20.0 Calculus of kidney (principal) ==

== ENCOUNTER 2016-04-07 20:49 | Emergency (ER) | payer OTHER ==
[~2016-04-07] VITALS: Ht 167.6 cm; Wt 104.6 kg
[~2016-04-07 20:49] MED LIST changes: -ACET-1256 PO; -AMT50 PO; -ATV5X PO; -CLX/20 PO; -CYCL10TA6 PO; -EPP3/2 IM; -IBUP-1050 PO; -METH500T PO; -NAPR-1169 PO; -OXYC-57 PO; -PRED20TA2 PO; -PREG1CAP36 PO; -SYN137 PO; -TGRSR100 PO; -VNTHFA/IN INH; -XRL15 PO
[2016-04-07 20:52] VITALS: TEMP 36.8; Ht 167.6 cm; Wt 104.6 kg
[2016-04-07] MEDS ORDERED: SODIUM CHLORIDE 0.9% 1000ML 1,000 ML IV STA ×2 (21:32)
[2016-04-07] MEDS ORDERED: ONDANSETRON INJ 2 MG/ML 2 ML VIAL IV STA (21:32)
[2016-04-07] MEDS: HYDROmorphone INJ 1 MG/ML SYR IV PRN ×2 (21:39→22:37)
[2016-04-07 21:45] LABS: BASO % 0.4 %; BASO ABS # 0.03 K/uL (0-0.2); COMPLETE YES; EOS % 3.4 %; HEMATOCRIT 40.8 % (37-47); IG% 0.2 %; LYMPH % 20.7 %; LYMPH ABS # 1.72 K/uL (1.2-3.4); MEAN CELL VOLUME 87.4 fL (80-100); MEAN CORPUSCULAR HEMOGLOBIN 30.2 pg (25-34); MEAN CORPUSCULAR HGB CONC 34.6 g/dl (32-36); MEAN PLATELET VOLUME 9.7 fL (7.4-10.4); NEUT % 64.3 %; PLATELET COUNT 296 K/uL (130-400); RED BLOOD COUNT 4.67 M/uL (4.2-5.4); WHITE BLOOD COUNT 8.31 K/uL (4.8-10.8)
--- NOTE | 2016-04-07 21:49 | EMERGENCY ROOM VISIT NOTE ---
History Report prepared by Geremias: Amandeep Degroot Under the Supervision of: Lola ReyesO. First contact with patient: 21:27 Chief Complaint: KIDNEY STONE Stated Complaint: KIDNEY STONE History of Present Illness The patient is a 40 year old female who presents to the Emergency Room with complaints of constant right flank pain beginning one day prior to arrival. She currently rates her discomfort as an 8/10 in severity. The patient associates nausea and weakness in her legs with today's symptoms. She states she had a lithotripsy performed one week ago. The patient notes this is her first kidney stone. She states she has a history of a spinal injury, asthma, hypothyroidism, GERD, cholecystectomy, and appendectomy. Source of History: patient Onset: one day [employer] Position: back (right flank) Symptom Intensity: 8/10 Timing: constant Associated Symptoms: + nausea, + weakness (legs) Review of Systems See HPI for pertinent positives & negatives. A total of 10 systems reviewed and were otherwise negative. Past Medical & Surgical Medical Problems: (1) Asthma (2) Hypothyroid (3) Spinal injury Family History Cancer Diabetes mellitus Hypertension Kidney disease Social History Smoking Status: Never Smoker Alcohol Use: occasionally Drug Use: none Marital Status: single Housing Status: lives alone Occupation Status: employed Current/Historical Medications Scheduled Carbamazepine (Tegretol-Xr), 100 MG PO QAM Citalopram (Citalopram Hydrobromide), 20 MG PO QAM Levothyroxine Sodium (Levothyroxine Sodium), 137 MCG PO QAM Scheduled PRN Acetaminophen (Tylenol), 1,000 MG PO Q8 PRN for Pain Albuterol Hfa (Ventolin Hfa), 2 PUFFS INH QID PRN for Asthma Symptoms Epinephrine (Epipen), 0.3 MG IM UD PRN for ALLERGIC REACTION Lorazepam (Lorazepam), 0.5 MG PO BID PRN for Anxiety Allergies Coded Allergies: Clindamycin (Verified Allergy, Severe, RED FACE, WHEEZING, 2/05/12) Hydrocodone (Verified Allergy, Severe, RED FACE, WHEEZING, 2/05/12) Iodinated Diagnostic Agents (Verified Allergy, Severe, anaphylactic, 2/) Tramadol (Verified Allergy, Severe, RED FACE, WHEEZING, 2/05/12) Metaxalone (Verified Allergy, Intermediate, flushed, red, wheezy, nauseous., 2/3/17) Sulfa Antibiotics (Verified Allergy, Intermediate, red face, wheezing, 03/31) Codeine (Verified Allergy, Mild, WHEEZING, 03/31/16) Shellfish (Verified Allergy, Mild, ., 03/31/16) Eucalyptus Oil (Verified Adverse Reaction, Intermediate, skin pedro, gets red., 03/31/16) Ketorolac Tromethamine (Verified Adverse Reaction, Intermediate, RED FACE , 03/31/16) Metoclopramide (Verified Adverse Reaction, Intermediate, INCREASED HEART RATE, 03/31/16) ONLY IV Fentanyl (Verified Adverse Reaction, Unknown, HOT/SICK, 03/31/16) Physical Exam Vital Signs Date Time Temp Pulse Resp B/P Pulse Ox O2 Delivery O2 Flow Rate FiO2 04/07/16 22:38 76 18 135/88 99 04/07/16 21:48 91 04/07/16 20:52 36.8 87 18 138/89 100 Room Air Physical Exam GENERAL: Patient is awake, alert, and somewhat anxious appearing and uncomfortable. EYES: The conjunctivae are clear. The pupils are round and reactive. EARS, NOSE, MOUTH AND THROAT: The nose is without any evidence of any deformity. Mucous membranes are moist tongue is midline NECK: The neck is nontender and supple. RESPIRATORY: Normal respiratory effort is noted there is no evidence of wheezing rhonchi or rales CARDIOVASCULAR: Regular rate and rhythm noted there no murmurs rubs or gallops normal S1 normal S2 GASTROINTESTINAL: The abdomen is soft. Bowel sounds are present in all quadrants. Abdomen is nontender BACK: Significant right CVA tenderness to percussion. Range of motion appeared intact. No midline tenderness or or step-off noted range of motion in flexion extension as well as rotation no signs of muscle spasm noted MUSCULOSKELETAL/EXTREMITIES: There is no evidence of gross deformity full range of motion is noted in the hips and shoulders SKIN: There is no obvious evidence of any rash. There are no petechiae, pallor or cyanosis noted. NEUROLOGIC: Patient is awake alert and oriented x3 strength is symmetric patellar reflexes are 2+ bilaterally Medical Decision & Procedures ER Provider Diagnostic Interpretation: Radiology results as stated below per my review and radiologist interpretation: KUB CLINICAL HISTORY: Abdominal pain. COMPARISON STUDY: CT of the abdomen and pelvis March 26, 2016 and KUB April 05, 2016. FINDINGS: A 4 mm calculus within the lower pole of the left kidney is unchanged. No ureteral calculi are identified. There are cholecystectomy clips. Bowel gas pattern is normal. IMPRESSION: 1. 4 mm left renal calculus. 2. No ureteral calculi identified. Electronically signed by: Martin Joyce M.D. 04/07/2016 10:35 PM RENAL ULTRASOUND CLINICAL HISTORY: Right flank pain. COMPARISON STUDY: CT of the abdomen and pelvis March 26, 2016. FINDINGS: The right kidney measures 10.2 x 4.4 x 4.4 cm and the left measures 10.1 x 4.9 x 4.5 cm. There is no hydronephrosis. A calculus within the lower pole of the left kidney is noted. This measures approximately 6 mm. Both ureteral jets were identified. Incidental note is made of fatty infiltration of the liver. IMPRESSION: 1. No hydronephrosis. 2. Left renal calculus measuring approximately 6 mm. 3. Fatty liver. Electronically signed by: Martin Joyec M.D. 04/07/2016 10:38 PM Laboratory Results 04/07/16 21:30 Red Blood Count 4.67, Mean Corpuscular Volume 87.4, Mean Corpuscular Hemoglobin 30.2, Mean Corpuscular Hemoglobin Concent 34.6, Mean Platelet Volume 9.7, Neutrophils (%) (Auto) 64.3, Lymphocytes (%) (Auto) 20.7, Monocytes (%) (Auto) 11.0, Eosinophils (%) (Auto) 3.4, Basophils (%) (Auto) 0.4, Neutrophils # (Auto ) 5.35, Lymphocytes # (Auto) 1.72, Monocytes # (Auto) 0.91, Eosinophils # (Auto ) 0.28, Basophils # (Auto) 0.03 04/07/16 21:30 Test 04/07/16 21:20 04/07/16 21:30 Urine Color YELLOW Urine Appearance CLOUDY (CLEAR) Urine pH 6.5 (4.5-7.5) Urine Specific [place] 1.018 (1.000-1.030) Urine Protein NEG (NEG) Urine Glucose (UA) NEG (NEG) Urine Ketones NEG (NEG) Urine Occult Blood 3+ (NEG) Urine Nitrite NEG (NEG) Urine Bilirubin NEG (NEG) Urine Urobilinogen NEG (NEG) Urine Leukocyte Esterase NEG (NEG) Urine WBC (Auto) 5-10 /hpf (0-5) Urine RBC (Auto) 0-4 /hpf (0-4) Urine Hyaline Casts (Auto) 1-5 /lpf (0-5) Urine Epithelial Cells (Auto) >30 /lpf (0-5) Urine Bacteria (Auto) 1+ (NEG) White Blood Count 8.31 K/uL (4.8-10.8) Red Blood Count 4.67 M/uL (4.2-5.4) Hemoglobin 14.1 g/dL (12.0-16.0) Hematocrit 40.8 % (37-47) Mean Corpuscular Volume 87.4 fL (80-100) Mean Corpuscular Hemoglobin 30.2 pg (25-34) Mean Corpuscular Hemoglobin Concent 34.6 g/dl (32-36) Platelet Count 296 K/uL (130-400) Mean Platelet Volume 9.7 fL (7.4-10.4) Neutrophils (%) (Auto) 64.3 % Lymphocytes (%) (Auto) 20.7 % Monocytes (%) (Auto) 11.0 % Eosinophils (%) (Auto) 3.4 % Basophils (%) (Auto) 0.4 % Neutrophils # (Auto) 5.35 K/uL (1.4-6.5) Lymphocytes # (Auto) 1.72 K/uL (1.2-3.4) Monocytes # (Auto) 0.91 K/uL (0.11-0.59) Eosinophils # (Auto) 0.28 K/uL (0-0.5) Basophils # (Auto) 0.03 K/uL (0-0.2) RDW Standard Deviation 42.3 fL (36.4-46.3) RDW Coefficient of Variation 13.4 % (11.5-14.5) Immature Granulocyte % (Auto) 0.2 % Immature Granulocyte # (Auto) 0.02 K/uL (0.00-0.02) Anion Gap 10.0 mmol/L (3-11) Est Creatinine Clear Calc Drug Dose 75.4 ml/min Estimated GFR () 65.0 Estimated GFR (Non- 56.1 BUN/Creatinine Ratio 12.3 (10-20) Calcium Level 9.5 mg/dl (8.5-10.1) Total Bilirubin 0.2 mg/dl (0.2-1) Direct Bilirubin < 0.1 mg/dl (0-0.2) Aspartate Amino Transf (AST/SGOT) 12 U/L (15-37) Alanine Aminotransferase (ALT/SGPT) 31 U/L (12-78) Alkaline Phosphatase 108 U/L (45-117) Total Protein 7.3 gm/dl (6.4-8.2) Albumin 3.6 gm/dl (3.4-5.0) Lipase 330 U/L (73-393) Human Chorionic Gonadotropin, Qual NEG (NEG) Laboratory results per my review. Medications Administered Medications (Trade) Dose Ordered Sig/Babar Route Start Time Stop Time Status Last Admin Dose Admin Sodium Chloride (Nss 1000ml) 1,000 ml @ 999 mls/hr Q1H1M STAT IV 04/07/16 21:32 04/07/16 22:32 DC 04/07/16 21:32 999 MLS/HR Hydromorphone HCl (Dilaudid Inj) 1 mg Q30M PRN IV 04/07/16 21:45 04/21/16 21:44 04/07/16 22:37 1 MG Ondansetron HCl (Zofran Inj) 4 mg NOW STAT IV 04/07/16 21:32 04/07/16 21:34 DC 04/07/16 21:39 4 MG Oxycodone HCl (Roxicodone Immediate Rel 5MG Home Pack) 1 homepack UD ONCE PO 04/07/16 23:15 04/07/16 23:16 DC 04/07/16 23:24 1 HOMEPACK ED Course 0: The patient was evaluated in room B12B. A complete history and physical examination were performed. 2131: Ordered Zofran Inj 4 mg IV, Sodium Chloride 1,000 ml @ 999 mls/hr IV, Sodium Chloride 1,000 ml @ 250 mls/hr IV. 2144: Ordered Dilaudid Inj 1 mg IV. 5: Ordered Oxycodone HCl 1 homepack PO. 2320: Upon reevaluation, the patient is doing well. I discussed the results and treatment plan with her. She verbalized agreement of the treatment plan. The patient was discharged home. Medical Decision Etiologies such as musculoskeletal, disc herniation, fracture, aortic disease, metastatic disease, cord compression, discitis, infection, renal colic, gastrointestinal, acute exacerbation of chronic back pain, sciatica, cauda equina, as well as others were entertained. Nursing notes reviewed. The patient is a 40-year-old female who is a history of lithotripsy and kidney stones who presented with right flank pain. The patient did not have any focal neurologic deficits. The patient was treated with IV fluids IV pain medicine and IV antiemetics. On subsequent reevaluation she was feeling much better. I discussed patient's laboratory radiographic studies with her. There is no definite signs of ureteral calculus. She had no hydronephrosis. She did not have any definite signs of urinary tract infection on urinalysis. She was encouraged to continue all medications as prescribed. She was also encouraged to call her primary care physician schedule a follow-up appointment. Otherwise she was encouraged to return to the emergency department immediately if symptoms change worsen or the need arises. Impression Primary Impression: Right flank pain Additional Impression: Renal calculi Scribe Attestation The scribe's documentation has been prepared under my direction and personally reviewed by me in its entirety. I confirm that the note above accurately reflects all work, treatment, procedures, and medical decision making performed by me. Departure Information Dispostion Home / Self-Care Referrals Abdi Subramanian M.D. (PCP) Forms HOME CARE DOCUMENTATION FORM, IMPORTANT VISIT INFORMATION, Work Instructions Patient Instructions ED Back Pain Acute Chronic, My [facility] Additional Instructions Rest and avoid any strenuous activity. Continue all medications as prescribed. Call your primary care physician schedule a follow-up appointment. Problem Qualifiers
[2016-04-07 22:02] LABS: ALT/SGPT 31 U/L (12-78); BLOOD UREA NITROGEN 15 mg/dl (7-18); BUN/CREATININE RATIO 12.3 (10-20); CALCIUM 9.5 mg/dl (8.5-10.1); CARBON DIOXIDE 26 mmol/L (21-32); CHLORIDE 106 mmol/L (98-107); GLUCOSE 88 mg/dl (70-99); SODIUM 142 mmol/L (136-145)
[2016-04-07 22:05] LABS: ALKALINE PHOSPHATASE 108 U/L (45-117); AST/SGOT 12 U/L (15-37)
[2016-04-07 22:08] LABS: PREG INTERNAL NEGATIVE QC NEG CLEAR BACKGROUND; PREG INTERNAL POSITIVE QC POS CONTROL LINE
--- NOTE | 2016-04-07 22:36 | DIAGNOSTIC IMAGING REPORT ---
KUB CLINICAL HISTORY: Abdominal pain. COMPARISON STUDY: CT of the abdomen and pelvis March 26, 2016 and KUB April 05, 2016. FINDINGS: A 4 mm calculus within the lower pole of the left kidney is unchanged. No ureteral calculi are identified. There are cholecystectomy clips. Bowel gas pattern is normal. IMPRESSION: 1. 4 mm left renal calculus. 2. No ureteral calculi identified. Electronically signed by: Martin Joyce M.D. 04/07/2016 10:35 PM Dictated Date/Time: 04/07/2016 10:30 PM
--- NOTE | 2016-04-07 22:39 | DIAGNOSTIC IMAGING REPORT ---
RENAL ULTRASOUND CLINICAL HISTORY: Right flank pain. COMPARISON STUDY: CT of the abdomen and pelvis March 26, 2016. FINDINGS: The right kidney measures 10.2 x 4.4 x 4.4 cm and the left measures 10.1 x 4.9 x 4.5 cm. There is no hydronephrosis. A calculus within the lower pole of the left kidney is noted. This measures approximately 6 mm. Both ureteral jets were identified. Incidental note is made of fatty infiltration of the liver. IMPRESSION: 1. No hydronephrosis. 2. Left renal calculus measuring approximately 6 mm. 3. Fatty liver. Electronically signed by: Martin Joyce M.D. 04/07/2016 10:38 PM Dictated Date/Time: 04/07/2016 10:35 PM
[2016-04-07 22:58] LABS: MANUAL MICROSCOPIC REQUIRED? NO; REVIEW REQ? NO
[2016-04-07 22:59] LABS: URINE APPEARANCE CLOUDY (CLEAR); URINE BILIRUBIN NEG (NEG); URINE COLOR YELLOW; URINE NITRITE NEG (NEG); URINE PH 6.5 (4.5-7.5); URINE SPECIFIC GRAVITY 1.018 (1.000-1.030); UROBILINOGEN NEG (NEG)
[2016-04-07 23:00] LABS: URINE EPITHELIAL CELL AUTO >30 /lpf (0-5)
[2016-04-07] MEDS ORDERED: OXYCODONE IR HOME PACK PO ONE (23:15)
[2016-04-07 23:30] VITALS: BP 135/78; PULSE 79; O2SAT 100
[2016-10-20] MEDS ORDERED: XRL15 PO (14:26)
[2016-10-20] MEDS ORDERED: OXYC-57 PO (14:26)
[2016-10-21] MEDS ORDERED: XRL15 PO (14:46)
[2016-10-21] MEDS ORDERED: VNTHFA/IN INH (14:47)
== END 2016-04-07 23:32 | disposition home or self-care (01) ==
LOC: C.EDB 20:50
DX: N20.0 Calculus of kidney (principal); J45.909 Unspecified asthma, uncomplicated; E03.9 Hypothyroidism, unspecified; K21.9 Gastro-esophageal reflux disease without esophagitis; Z90.49 Acquired absence of other specified parts of digestive tract

== ENCOUNTER 2016-05-05 16:45 | Emergency (ER) | payer OTHER ==
[~2016-05-05] VITALS: Ht 167.6 cm; Wt 105.1 kg
[2016-05-05 16:54] VITALS: TEMP 36.6; Ht 167.6 cm; Wt 105.1 kg
--- NOTE | 2016-05-05 17:59 | DIAGNOSTIC IMAGING REPORT ---
LUMBAR SPINE 5 VIEWS HISTORY: Right side low back pain COMPARISON: Lumbar spine 07/01/2015. FINDINGS: There is no fracture. No subluxation. Cholecystectomy. The sacrum appears intact. There appear to be a few punctate bilateral renal calculi. This remains unchanged. Mild degenerative disc disease at L5-S1, unchanged. IMPRESSION: No fracture or subluxation within the lumbar spine. Mild degenerative disc disease at L5-S1, unchanged. Electronically signed by: Lauri Thompson M.D. 05/05/2016 5:58 PM Dictated Date/Time: 05/05/2016 5:56 PM
[2016-05-05] MEDS ORDERED: PRED20TA2 PO (18:43)
[2016-05-05] MEDS ORDERED: CYCL10TA6 PO (18:43)
[2016-05-05 18:55] VITALS: BP 142/84; PULSE 76; O2SAT 99
[2016-05-05] MEDS ORDERED: DEXAMETHASONE SOD INJ 10 MG/ML VIAL IM STA (20:27)
[2016-05-05] MEDS ORDERED: PROMETHAZINE HCL INJ 25 MG/ML 1 ML VIAL IM STA (20:28)
[2016-05-05] MEDS ORDERED: HYDROmorphone INJ 2 MG/ML SYR/VIAL IM STA (20:28)
--- NOTE | 2016-05-05 23:01 | EMERGENCY ROOM VISIT NOTE ---
History First contact with patient: 17:18 Chief Complaint: BACK PAIN Stated Complaint: BACK NERVE/SPASM/PAIN,CHEST PAIN History of Present Illness The patient is a 40 year old female who presents to the Emergency Room with complaints of right-sided back pain worsening over the past week. The patient states the pain is like a spasm that radiates up and down her spine. The patient has a long-standing history of chronic back pain and does follow with neurology for this. The patient states that she worsened her back pain after lifting her bed at home a week ago. The patient states that she recently got a new puppy, who started hiding underneath the bed. The patient had to lift the bed in order to retrieve the animal. The patient states that she has had slowly worsening pain since that time. She has been able to go to work, but states that her symptoms have made her more irritable at work. She did work today and tried to contact her neurologist, who is not able to see her, and recommended that she be seen in the ER. The patient does not have a traumatic injury. No new numbness or paresthesias. No difficulty using the bathroom. She is currently on her period and denies chance of . She rates her discomfort a 10/10. She has not had significant relief with Tylenol and home. Movement and position worsens her discomfort. Review of Systems More than 10 systems were reviewed and otherwise negative with the exception of history of present illness. Past Medical/Surgical History Medical Problems: (1) Asthma (2) Hypothyroid (3) Spinal injury Family History Cancer Diabetes mellitus Hypertension Kidney disease Social History Smoking Status: Never Smoker Alcohol Use: occasionally Drug Use: none Marital Status: single Housing Status: lives alone Occupation Status: employed Current/Historical Medications Scheduled Carbamazepine (Tegretol-Xr), 100 MG PO QAM Citalopram (Citalopram Hydrobromide), 20 MG PO QAM Cyclobenzaprine Hcl (Flexeril), 10 MG PO TID Levothyroxine Sodium (Levothyroxine Sodium), 137 MCG PO QAM Prednisone (Prednisone Tab), 2 TAB PO DAILY Scheduled PRN Acetaminophen (Tylenol), 1,000 MG PO Q8 PRN for Pain Albuterol Hfa (Ventolin Hfa), 2 PUFFS INH QID PRN for Asthma Symptoms Epinephrine (Epipen), 0.3 MG IM UD PRN for ALLERGIC REACTION Lorazepam (Lorazepam), 0.5 MG PO BID PRN for Anxiety Allergies Coded Allergies: Clindamycin (Verified Allergy, Severe, RED FACE, WHEEZING, 03/31/16) Hydrocodone (Verified Allergy, Severe, RED FACE, WHEEZING, 03/31/16) Iodinated Diagnostic Agents (Verified Allergy, Severe, anaphylactic, ) Tramadol (Verified Allergy, Severe, RED FACE, WHEEZING, 03/31/16) Metaxalone (Verified Allergy, Intermediate, flushed, red, wheezy, nauseous., 03/31/16) Sulfa Antibiotics (Verified Allergy, Intermediate, red face, wheezing, 03/31) Codeine (Verified Allergy, Mild, WHEEZING, 03/31/16) Shellfish (Verified Allergy, Mild, ., 03/31/16) Eucalyptus Oil (Verified Adverse Reaction, Intermediate, skin pedro, gets red., 03/31/16) Ketorolac Tromethamine (Verified Adverse Reaction, Intermediate, RED FACE , 03/31/16) Metoclopramide (Verified Adverse Reaction, Intermediate, INCREASED HEART RATE, 03/31/16) ONLY IV Fentanyl (Verified Adverse Reaction, Unknown, HOT/SICK, 03/31/16) Physical Exam Vital Signs Date Time Temp Pulse Resp B/P Pulse Ox O2 Delivery O2 Flow Rate FiO2 05/05/16 18:55 76 20 142/84 99 05/05/16 18:25 82 20 143/91 99 Room Air 05/05/16 16:54 36.6 92 18 150/101 98 Room Air Pain Rating (0-10): 9.0 Physical Exam VITALS: Vitals are noted on the nurse's note and reviewed by myself. Vital signs stable. GENERAL: Well-developed, well-nourished, white female, who is in no acute distress and resting comfortably. Patient is cooperative with the examination. HEAD: Normocephalic atraumatic. NECK: Supple without nuchal rigidity. No lymphadenopathy. No thyromegaly. Cervical spine is nontender. HEART: Regular rate and rhythm without murmurs gallops or rubs. LUNGS: Clear to auscultation bilaterally without wheezes, rales or rhonchi. No retractions or accessory muscle use. BACK: Mild right-sided lumbar spine tenderness on palpation. No significant paravertebral spasm. Negative straight leg raise. No saddle paresthesias. Neuro status intact distally. ABDOMEN: Positive normal bowel sounds x 4. Soft, nontender, without masses or organomegaly. No guarding or rebound tenderness. MUSCULOSKELETAL: No muscle atrophy, erythema, or edema noted. Full range of motion without joint tenderness in all extremities. Medical Decision & Procedures ER Provider Diagnostic Interpretation: LUMBAR SPINE 5 VIEWS HISTORY: Right side low back pain COMPARISON: Lumbar spine 07/01/2015. FINDINGS: There is no fracture. No subluxation. Cholecystectomy. The sacrum appears intact. There appear to be a few punctate bilateral renal calculi. This remains unchanged. Mild degenerative disc disease at L5-S1, unchanged. IMPRESSION: No fracture or subluxation within the lumbar spine. Mild degenerative disc disease at L5-S1, unchanged. Medications Administered Medications (Trade) Dose Ordered Sig/Babar Route Start Time Stop Time Status Last Admin Dose Admin Dexamethasone Sodium Phosphate (Decadron Inj) 10 mg NOW STAT IM 05/05/16 20:27 05/05/16 20:28 DC 05/05/16 20:48 10 MG Hydromorphone HCl (Dilaudid Inj) 2 mg NOW STAT IM 05/05/16 20:28 05/05/16 20:29 DC 05/05/16 20:47 2 MG Promethazine HCl (Phenergan Inj) 25 mg NOW STAT IM 05/05/16 20:28 05/05/16 20:29 DC 05/05/16 20:48 25 MG ED Course Physical exam and history were performed. Nursing notes and EMR were reviewed. Patient appears to have low back pain for the past week after moving her bed at home. Review of EMR shows the patient has been seen several times in this facility for ongoing back pain. Today is essentially her eighth visit since the start of 2015 for similar complaints. She does not have significant neurologic deficit or gross findings on examination. She evidently follows with neurology, but not with a primary care physician. Based on the patient's symptoms I did elect to perform an x-ray of her lumbar spine, as this is where she seems to have most of her discomfort. X-ray does not show fracture or significant acute findings. I discussed the findings of the x-ray with the patient, who overall appears stable as well for discharge home. Patient will be given a course of Flexeril and prednisone with instructions to use [id number] Tylenol. The patient was very dissatisfied with this information. I explained that her symptoms were more chronic in nature and I do not have acute findings that require narcotic intervention. Additionally she is allergic to codeine, fentanyl, hydrocodone, Toradol, and tramadol. I do not feel that she requires narcotic intervention for her symptoms. Appropriate paperwork was completed and prescriptions were sent to her pharmacy. After discharge the patient I was asked by nursing to return to the room. The patient was very belligerent in an escalating fashion at the time of this interaction, as she requested multiple times that she receive pain medication, specifically morphine by injection. I again explained that she did not have significant acute findings, and her discomfort was an exacerbation of her chronic pain that is best taken care of by her primary care physician or her neurologist. The patient began to yell in the room, and out into the ER, an area, that she wanted to see a doctor. I discussed the case with my attending physician, Dr. Mathews. Together we engaged case management to help the patient better establish care with a primary care physician, Orthospine specialist, and pain management clinic. After several hours of Emergency Department stay, we were able to help provide her with additional resources. The patient was medicated here in the ER by Dr. Mathews as above. At this point we have performed imaging, multiple physical examinations, injectable pain relief, and case management services for the patient to have appropriate outpatient care. She does appear stable for discharge home and was discharged home under the care of a female cassandra consultant who is acting as the city route driver. Overall Dr. Mathews and I are highly concerned that the patient is exhibiting drug-seeking behavior. She is employed at a [employer], and she is very manipulative and demanding of narcotics. We recommend the patient be placed on a no narcotic treatment plan. The chart was completed utilizing [employer] Speech Voice Recognition Software. Grammatical errors, random word insertions, pronoun errors, and incomplete sentences are an occasional consequence of this system due to software limitations, ambient noise, and hardware issues. Any formal questions or concerns about the content, text, or information contained within the body of this dictation should be directly addressed to the provider for clarification. . Medical Decision Differential diagnosis: Etiologies such as musculoskeletal, disc herniation, fracture, aortic disease, metastatic disease, cord compression, discitis, infection, renal colic, gastrointestinal, acute exacerbation of chronic back pain, sciatica, cauda equina, as well as others were entertained. Impression Primary Impression: Low back pain Departure Information Dispostion Home / Self-Care Condition GOOD Prescriptions Prednisone (Prednisone Tab) 20 Mg Tab 2 TAB PO DAILY for 5 Days, #10 TAB Prov: Kai Anne PA-C 05/05/16 Cyclobenzaprine Hcl (FLEXERIL) 10 Mg Tab 10 MG PO TID for 7 Days, #21 TAB Prov: Kai Anne PA-C 05/05/16 Forms HOME CARE DOCUMENTATION FORM, IMPORTANT VISIT INFORMATION Patient Instructions My [facility] Additional Instructions You were seen and evaluated today on an emergency basis only. This is not a substitute for, or an effort to provide, complete comprehensive medical care. It is not possible to recognize and treat all injuries or illnesses in a single emergency department visit. For this reason it is recommended that you followup with your primary care physician and neurologist for ongoing care and evaluation. Take prednisone 40 mg daily for the next 5 days. Flexeril 1 tablet up to 3 times a day as needed for muscle spasms. No driving, working, or alcohol use with Flexeril. You are welcome to return to the emergency department anytime with new, worsening, or concerning symptoms.
[2016-10-20] MEDS ORDERED: OXYC-57 PO (14:26)
[2016-10-20] MEDS ORDERED: XRL15 PO (14:26)
[2016-10-21] MEDS ORDERED: XRL15 PO (14:46)
[2016-10-21] MEDS ORDERED: VNTHFA/IN INH (14:47)
== END 2016-05-05 20:58 | disposition home or self-care (01) ==
LOC: C.EDB 16:49 → C.EDC 20:58
DX: M54.5 Low back pain (principal); G89.29 Other chronic pain; J45.909 Unspecified asthma, uncomplicated; E03.9 Hypothyroidism, unspecified; Z83.3 Family history of diabetes mellitus; Z82.49 Family history of ischemic heart disease and other diseases of the circulatory system; Z79.899 Other long term (current) drug therapy

== ENCOUNTER 2016-05-31 19:03 | Emergency (ER) | payer OTHER ==
[~2016-05-31] VITALS: Ht 167.6 cm; Wt 104.6 kg
[2016-05-31 19:33] VITALS: TEMP 37; Ht 167.6 cm; Wt 104.6 kg
--- NOTE | 2016-05-31 20:14 | DIAGNOSTIC IMAGING REPORT ---
RIGHT ELBOW MIN 3 VIEWS ROUTINE CLINICAL HISTORY: Right elbow pain. COMPARISON: Right elbow radiographs April 09, 2015. FINDINGS: Alignment of the right elbow is in anatomic. There is no joint effusion or fracture. No osseous lesion is identified. Joint spaces are preserved. IMPRESSION: No acute fracture or joint effusion of the right elbow. Electronically signed by: Martin Joyce M.D. 05/31/2016 8:13 PM Dictated Date/Time: 05/31/2016 8:12 PM
[2016-05-31] MEDS ORDERED: NAPR-1169 PO (20:22)
--- NOTE | 2016-05-31 20:22 | EMERGENCY ROOM VISIT NOTE ---
ED Visit Note First contact with patient: 19:37 CHIEF COMPLAINT: Elbow pain HISTORY OF PRESENT ILLNESS: This 40-year-old female patient presents to the emergency department ambulatory complaining of pain in the right elbow which is chronic in nature but worsened over the past few weeks. The patient states that she has had long-standing issues with her right elbow. She states that she was previously seen at [facility] in [place]. The patient rates their pain as sharp and 8.5/10. The patient has previously received steroid injections in the elbow. She states that she was seen at her primary care provider's office and given Decadron and started on a Medrol Dosepak which she took without relief. She denies any numbness or tingling. She denies any recent trauma to the elbow. The patient does state that her primary care provider is in the process of setting her up with orthopedics. REVIEW OF SYSTEMS: A 6 system review of systems was completed with positives and pertinent negatives listed in the HPI. ALLERGIES: See EMR MEDICATIONS: See med list PMH: Hypothyroidism, chronic right elbow pain, chronic back pain SOCIAL HISTORY: The patient lives with family. Nonsmoker. PHYSICAL EXAM: Vital Signs: Reviewed Nurse's notes, vital signs stable. GENERAL : This is a 40-year-old female, in no acute distress, well-developed, well- nourished. SKIN: The skin was without rashes, erythema, edema, warmth, or bruising. Capillary reflex less than 3 seconds. MUSCULOSKELETAL: The patient is holding their elbow in slight flexion. There is tenderness to light palpation diffusely over the elbow and proximal forearm. Full range of motion of the elbow and wrist. There is no tenderness of the shoulder, wrist, or hand. Stone Grader strength 4/5 in the right hand. Radial pulse 2+. NEURO: Patient was alert and oriented to person place and time. Normal sensation to light and sharp touch. RADIOGRAPHIC FINDINGS: RIGHT ELBOW MIN 3 VIEWS ROUTINE CLINICAL HISTORY: Right elbow pain. COMPARISON: Right elbow radiographs April 09, 2015. FINDINGS: Alignment of the right elbow is in anatomic. There is no joint effusion or fracture. No osseous lesion is identified. Joint spaces are preserved. IMPRESSION: No acute fracture or joint effusion of the right elbow. EMERGENCY DEPARTMENT COURSE: I examined the patient. An x-ray of the right elbow was reviewed myself and read by radiology and shows no acute findings. The patient has chronic right elbow pain. She needs to follow-up with orthopedics. There is no evidence of infection on exam. She was given a prescription for Naprosyn and instructed to keep her follow-up appointments as scheduled. She verbalized understanding of my assessment and treatment plan. The patient was discharged home in stable condition. DIAGNOSIS: Chronic elbow pain Problem List Medical Problems: (1) Asthma Status: Chronic (2) Hypothyroid Status: Chronic (3) Spinal injury Status: Resolved Current/Historical Medications Scheduled Carbamazepine (Tegretol-Xr), 100 MG PO QAM Citalopram (Citalopram Hydrobromide), 20 MG PO QAM Ibuprofen (Advil), 600 MG PO Q6H Levothyroxine Sodium (Levothyroxine Sodium), 137 MCG PO QAM Naproxen (Naprosyn), 500 MG PO BID Scheduled PRN Acetaminophen (Tylenol), 1,000 MG PO Q8 PRN for Pain Albuterol Hfa (Ventolin Hfa), 2 PUFFS INH QID PRN for Asthma Symptoms Epinephrine (Epipen), 0.3 MG IM UD PRN for ALLERGIC REACTION Lorazepam (Lorazepam), 0.5 MG PO BID PRN for Anxiety Allergies Coded Allergies: Clindamycin (Verified Allergy, Severe, RED FACE, WHEEZING, 03/31/16) Hydrocodone (Verified Allergy, Severe, RED FACE, WHEEZING, 03/31/16) Iodinated Diagnostic Agents (Verified Allergy, Severe, anaphylactic, ) Tramadol (Verified Allergy, Severe, RED FACE, WHEEZING, 03/31/16) Metaxalone (Verified Allergy, Intermediate, flushed, red, wheezy, nauseous., 03/31/16) Sulfa Antibiotics (Verified Allergy, Intermediate, red face, wheezing, 03/31) Codeine (Verified Allergy, Mild, WHEEZING, 03/31/16) Shellfish (Verified Allergy, Mild, ., 03/31/16) Eucalyptus Oil (Verified Adverse Reaction, Intermediate, skin pedro, gets red., 03/31/16) Ketorolac Tromethamine (Verified Adverse Reaction, Intermediate, RED FACE , 03/31/16) Metoclopramide (Verified Adverse Reaction, Intermediate, INCREASED HEART RATE, 03/31/16) ONLY IV Fentanyl (Verified Adverse Reaction, Unknown, HOT/SICK, 2/17) Vital Signs Date Time Temp Pulse Resp B/P Pulse Ox O2 Delivery O2 Flow Rate FiO2 05/31/16 20:44 79 18 146/93 99 05/31/16 19:33 37.0 99 18 149/108 98 Room Air Medications Administered Medications (Trade) Dose Ordered Sig/Babar Route Start Time Stop Time Status Last Admin Dose Admin Naproxen (Naproxen 250MG Home Pack) 1 homepack UD ONCE PO 05/31/16 20:45 05/31/16 20:46 DC 05/31/16 20:42 1 HOMEPACK Naproxen (Naprosyn Tab) 250 mg NOW STAT PO 05/31/16 20:37 05/31/16 20:38 DC 05/31/16 20:42 250 MG Departure Information Impression Primary Impression: Chronic pain of right elbow Dispostion Home / Self-Care Condition GOOD Prescriptions Naproxen (Naprosyn) 500 Mg Tab 500 MG PO BID for 7 Days, #14 TAB Prov: Cristin Ritter ., ALEJANDRO 05/31/16 Referrals Abdi Subramanian M.D. (PCP) Patient Instructions My [facility] Additional Instructions Naprosyn as prescribed. For pain control, you can use the following [id number] medicines (if >12 yo): - Regular strength (325mg/tab) Tylenol (acetaminophen) 2 tabs every 4-6 hours as needed. Do not exceed 12 tablets in a 24 hour period. Avoid taking more than 4 grams (4000 mg) of Tylenol per day. This includes any other sources of acetaminophen you may take on a regular basis. Follow-up with orthopedics regarding the elbow pain. Continue to ice the elbow as needed for pain.
[2016-05-31] MEDS ORDERED: NAPROXEN 250 MG TAB PO STA (20:37)
[2016-05-31 20:44] VITALS: BP 146/93; PULSE 79; O2SAT 99
[2016-05-31] MEDS ORDERED: NAPROSYN HOME PACK 250 MG VIAL PO ONE (20:45)
[2016-10-20] MEDS ORDERED: OXYC-57 PO (14:26)
[2016-10-20] MEDS ORDERED: XRL15 PO (14:26)
[2016-10-21] MEDS ORDERED: XRL15 PO (14:46)
[2016-10-21] MEDS ORDERED: VNTHFA/IN INH (14:47)
[2017-01-02] MEDS ORDERED: XRL15 PO (17:20)
== END 2016-05-31 20:45 | disposition home or self-care (01) ==
LOC: C.EDB 19:07 → C.EDD 20:45
DX: M25.521 Pain in right elbow (principal); G89.29 Other chronic pain; M54.9 Dorsalgia, unspecified; E03.9 Hypothyroidism, unspecified; J45.909 Unspecified asthma, uncomplicated

== ENCOUNTER → 2016-07-14 | Outpatient (CLI) | payer OTHER ==
[~2016-07-14] MED LIST changes: +ACET-1256 PO; +AMT50 PO; +ATV5X PO; +CLX/20 PO; +EPP3/2 IM; +IBUP-1050 PO; +METH500T PO; +OXYC-57 PO; -OXYC1TAB3 PO; +PREG1CAP36 PO; +SYN137 PO; +TGRSR100 PO; +VNTHFA/IN INH; +XRL15 PO
--- NOTE | 2016-07-14 15:16 | DIAGNOSTIC IMAGING REPORT ---
MRI THE RIGHT ELBOW NO CONTRAST CLINICAL HISTORY: Right elbow pain and swelling. Limited range of motion. COMPARISON STUDY: Conventional radiographic study dated 05/31/2016 FINDINGS: Imaging was performed in sagittal, axial, and coronal planes. There are no areas of marrow edema to indicate occult fracture, bone bruise, or neoplasm. There is no evidence of pathologic intramuscular edema. No soft tissue masses are visualized on this noncontrast study. There is no evidence of biceps or triceps tendon tear. The ulnar collateral ligament appears intact. There is a partial tear of the humeral insertion of the radial collateral ligament. This is age-indeterminate. There is also increased signal within the insertion of the common extensor tendon. The findings are consistent with a lateral epicondylitis. IMPRESSION: 1. No evidence of occult fracture 2. Lateral epicondylitis. Electronically signed by: Keyshawn Toure M.D. 07/14/2016 3:15 PM Dictated Date/Time: 07/14/2016 3:04 PM
== END | disposition home or self-care (01) ==
LOC: C.MRIBC 14:19
DX: M25.521 Pain in right elbow (principal); M89.0 Algoneurodystrophy; M77.11 Lateral epicondylitis, right elbow

== ENCOUNTER 2016-07-18 19:30 | Emergency (ER) | payer OTHER ==
[~2016-07-18] VITALS: Ht 167.6 cm; Wt 105.1 kg
[2016-07-18 19:34] VITALS: BP 143/97; PULSE 107; TEMP 36.6; O2SAT 98; Ht 167.6 cm; Wt 105.1 kg
[2016-07-18] MEDS ORDERED: METHOCARBAMOL 500 MG TAB PO ONE (20:00)
[2016-07-18] MEDS ORDERED: DEXAMETHASONE SOD INJ 4 MG/ML 5 ML VIAL IM STA (20:00)
[2016-07-18] MEDS ORDERED: AMT50 PO (20:04)
[2016-07-18] MEDS ORDERED: METH500T PO (20:05)
[2016-07-18] MEDS ORDERED: DEXAMETHASONE SOD INJ 10 MG/ML VIAL IM STA (20:09)
[2016-07-18] MEDS ORDERED: TGRSR100 PO (21:33)
--- NOTE | 2016-07-19 00:42 | EMERGENCY ROOM VISIT NOTE ---
ED Visit Note First contact with patient: 19:45 CHIEF COMPLAINT: Shoulder and right pain HISTORY OF PRESENT ILLNESS: This 40-year-old patient presents to the emergency department with mother complaining of pain in the right arm after having an MRI done the other day for her chronic ongoing pain of this right elbow and shoulder. There is limitation of motion of the arm because of the pain. The pain is moderate, constant and increases with motion of the hand and arm. The patient states the pain is throbbing and a/10. The patient has taken medicine without relief of the pain. Patient used to follow with [facility] now falls with Dr. Black. Patient states since the MRI she's had spasms numbness and tingling and severe pain. There was no new injury. Patient states she had a hold her arm in an extended position along with holding a weight and this caused her extreme discomfort. She has a follow-up on with her orthopedic doctor. She did physical therapy today which increased her symptoms. No chest pain or shortness of breath. No abdominal pain or nausea/ vomiting. No cough. 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 She has chronic pain for quite some time now. REVIEW OF SYSTEMS: A 6 system review of systems was performed with positives and pertinent negatives in the HPI. ALLERGIES: Clindamycin, Toradol, reviewed MEDICATIONS: Reviewed PMH: Medical Problems: (1) Asthma Status: Chronic (2) Hypothyroid Status: Chronic (3) Spinal injury Status: Resolved SOCIAL HISTORY: No drug use PHYSICAL EXAM: Vital Signs: Reviewed nurse's notes, vital signs stable. GENERAL : White female, in no acute distress, but appears to be in pain, well-developed , well-nourished. MUSCULOSKELETAL: There is no deformity in the contour of the entire right arm and shoulder and there are no wisam deformities noted. There is no sulcus sign. There is tenderness over the entire arm. The patient's range of motion is intact but painful. Supraspinatus strength 5/5. There is negative clavicle tenderness. No tenderness of the humerus, elbow, wrist, or hand. Station Cashier strength 4/5. Radial pulse 2+. NECK: no tenderness to palpation over the cervical spine. HEART: Regular rate and rhythm without murmurs gallops or rubs. LUNGS: Clear to auscultation bilaterally without wheezes, rales or rhonchi. No accessory muscle use. No retractions. NEURO: The patient is alert and oriented to person, place, and time. Normal sensation to light and sharp touch. Capillary refill less than 2 seconds. EMERGENCY DEPARTMENT COURSE: I examined the patient. MRI THE RIGHT ELBOW NO CONTRAST CLINICAL HISTORY: Right elbow pain and swelling. Limited range of motion. COMPARISON STUDY: Conventional radiographic study dated 05/31/2016 FINDINGS: Imaging was performed in sagittal, axial, and coronal planes. There are no areas of marrow edema to indicate occult fracture, bone bruise, or neoplasm. There is no evidence of pathologic intramuscular edema. No soft tissue masses are visualized on this noncontrast study. There is no evidence of biceps or triceps tendon tear. The ulnar collateral ligament appears intact. There is a partial tear of the humeral insertion of the radial collateral ligament. This is age-indeterminate. There is also increased signal within the insertion of the common extensor tendon. The findings are consistent with a lateral epicondylitis. IMPRESSION: 1. No evidence of occult fracture 2. Lateral epicondylitis. Electronically signed by: Keyshawn Toure M.D. Patient was given Robaxin and Decadron. She was advised to follow-up with her orthopedic doctor tomorrow and advised to call at 8 AM for follow-up appointment. Patient is on our no narcotic list for belligerent behavior and prior ER visits. I did review the [place] PDMP website and patient had multiple prescriptions of narcotics. I'm concerned she is drug seeking. Patient originally was agreeable to discharge and then when the nurse went in to discharge he, ther patient was then demanding narcotics for her pain. I advised the nurse to have her follow-up with her orthopedics in the morning. Patient then demanded that she speak with me again. I went her with the nurse present, Janessa, and patient was belligerent and using profanity at me. She informed me that she does not use illegal drugs and does not know why she is on the no narcotic list. I informed her that she could discuss this with my senior medical billing specialist, Dr. Agustin, in the morning or she can speak to my nurse avionics shop supervisor. She then began to once again yell and scream at me nonstop. I informed the patient that I cannot take her off the no narcotic list. I informed her of her MRI results and strongly encouraged once again that she see her orthopedic doctor in the morning. Patient had no new injury. Patient was neurovascularly and neurologically intact. Patient was yelling and screaming and using profanity for over an hour in the ER. Valentina, nursing avionics shop supervisor, did go in and speak with the patient. Patient then began to threaten to michael me along with the whole hospital. 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 She states she has sued other providers in the past. I once again read to the patient that I hear her complaints and that she needs to follow up with her specialist and discuss her no narcotic drug list in the ER with my senior medical billing specialist. She was discharged with her mother. Patient was extremely displeased with her care. She stormed out yelling and screaming using profanity out of the ER. Differential diagnosis includes chronic right upper extremity pain, sprain, strain, fracture, muscle spasm, drug-seeking behavior, RSD and other etiologies were considered. DIAGNOSIS: Chronic right upper extremity pain DISCHARGE INSTRUCTIONS & TREATMENT: As below Case reviewed with my Attending. Problem List Medical Problems: (1) Asthma Status: Chronic (2) Hypothyroid Status: Chronic (3) Spinal injury Status: Resolved Current/Historical Medications Scheduled Amitriptyline Hcl (Elavil), 50 MG PO HS Carbamazepine (Tegretol-Xr), 100 MG PO HS Citalopram (Citalopram Hydrobromide), 20 MG PO QAM Levothyroxine Sodium (Levothyroxine Sodium), 137 MCG PO QAM Methocarbamol (Robaxin), 1 TAB PO TID Scheduled PRN Acetaminophen (Tylenol), 1,000 MG PO Q8 PRN for Pain Albuterol Hfa (Ventolin Hfa), 2 PUFFS INH QID PRN for Asthma Symptoms Epinephrine (Epipen), 0.3 MG IM UD PRN for ALLERGIC REACTION Ibuprofen (Advil), 600 MG PO Q6H PRN for Pain Lorazepam (Lorazepam), 0.5 MG PO BID PRN for Anxiety Allergies Coded Allergies: Clindamycin (Verified Allergy, Severe, RED FACE, WHEEZING, 07/18/16) Hydrocodone (Verified Allergy, Severe, RED FACE, WHEEZING, 07/18/16) Iodinated Diagnostic Agents (Verified Allergy, Severe, anaphylactic, ) Tramadol (Verified Allergy, Severe, RED FACE, WHEEZING, 07/18/16) Metaxalone (Verified Allergy, Intermediate, flushed, red, wheezy, nauseous., 07/18/16) Sulfa Antibiotics (Verified Allergy, Intermediate, red face, wheezing, ) Codeine (Verified Allergy, Mild, WHEEZING, 07/18/16) Shellfish (Verified Allergy, Mild, ., 07/18/16) Eucalyptus Oil (Verified Adverse Reaction, Intermediate, skin pedro, gets red., 07/18/16) Ketorolac Tromethamine (Verified Adverse Reaction, Intermediate, RED FACE , 07/18/16) Metoclopramide (Verified Adverse Reaction, Intermediate, INCREASED HEART RATE, 07/18/16) ONLY IV Fentanyl (Verified Adverse Reaction, Unknown, HOT/SICK, 07/18/16) Vital Signs Date Time Temp Pulse Resp B/P Pulse Ox O2 Delivery O2 Flow Rate FiO2 07/18/16 19:34 36.6 107 18 143/97 98 Room Air Medications Administered Medications (Trade) Dose Ordered Sig/Babar Route Start Time Stop Time Status Last Admin Dose Admin Methocarbamol (Robaxin Tab) 1,500 mg NOW ONCE PO 07/18/16 20:00 07/18/16 20:01 DC 07/18/16 20:35 1,500 MG Dexamethasone Sodium Phosphate (Decadron Inj) 10 mg NOW STAT IM 07/18/16 20:09 07/18/16 20:13 DC 07/18/16 20:36 10 MG Departure Information Impression Primary Impression: Chronic pain of left upper extremity Dispostion Home / Self-Care Condition GOOD Prescriptions Methocarbamol (ROBAXIN) 500 Mg Tab 1 TAB PO TID, #15 TAB Prov: Lisa Benedict .ALEJANDRO 07/18/16 Referrals No Doctor, Assigned (PCP) Forms HOME CARE DOCUMENTATION FORM, IMPORTANT VISIT INFORMATION Patient Instructions My [facility] Additional Instructions DO NOT drive, drink alcohol, operate machinery, or perform dangerous activities today. You were given medications in the ER that can affect your ability to safely function or operate a vehicle. Robaxin 500 mg: Take 1 pill every 8 hours for muscle spasm. Avoid alcohol, operating machinery or dangerous equipment, working on ladders or roofs, DRIVING , or situations where being under the influence may be dangerous. It is recommended to use an [id number]-qipvfhe stool softener such as Colace, 100mg twice daily while taking this medication to avoid constipation. Ibuprofen(Motrin, Advil) may be used for fever or pain. Use 600mg every six hours as needed. Take with food. Avoid using more than 2400mg in a 24 hour period. Do not use 2400mg per day for more than three consecutive days without physician direction. Prolonged inappropriate use can lead to stomach upset or ulcers. This medication can be taken if you need to drive, work, or perform activities which may be dangerous when taking narcotic pain medication. (AND/OR) Acetaminophen(Tylenol) may be used for fever or pain. Use 1000mg every six hours as needed. Avoid using more than 3000mg in a 24 hour period. This medication can be taken if you need to drive, work, or perform activities which may be dangerous when taking narcotic pain medication. Ice compresses for 20 minutes at a time four times daily for 2-3 days. Rest and elevate your injury. Continue current medications. Return to the ER immediately for any numbness, tingling, severe pain, extreme swelling in the extremity or as needed. Call your Orthopedics tomorrow to arrange follow up.
[2016-10-20] MEDS ORDERED: XRL15 PO (14:26)
[2016-10-20] MEDS ORDERED: OXYC-57 PO (14:26)
[2016-10-21] MEDS ORDERED: XRL15 PO (14:46)
[2016-10-21] MEDS ORDERED: VNTHFA/IN INH (14:47)
[2017-01-02] MEDS ORDERED: XRL15 PO (17:20)
== END 2016-07-18 21:33 | disposition home or self-care (01) ==
LOC: C.EDB 19:31 → C.EDD 21:33
DX: M25.511 Pain in right shoulder (principal); M25.521 Pain in right elbow; G89.29 Other chronic pain; J45.909 Unspecified asthma, uncomplicated; E03.9 Hypothyroidism, unspecified; Z79.899 Other long term (current) drug therapy

== ENCOUNTER → 2016-10-13 | Outpatient (CLI) | payer OTHER ==
[~2016-10-13] MED LIST changes: -METH500T PO
== END | disposition home or self-care (01) ==
LOC: C.RDSM 14:38
PROVIDERS: ATTEND Family Medicine Sports Medicine
DX: M79.602 Pain in left arm (principal)

== ENCOUNTER 2016-10-18 14:29 | Inpatient (IN) | payer OTHER ==
[~2016-10-18] VITALS: Ht 167.6 cm; Wt 103.7 kg
[~2016-10-18 14:29] MED LIST changes: -ACET-1256 PO; -ATV5X PO; -CLX/20 PO; -EPP3/2 IM; -IBUP-1050 PO; -OXYC-57 PO; -PREG1CAP36 PO; -SYN137 PO; -VNTHFA/IN INH; -XRL15 PO
[2016-10-18] MEDS ORDERED: SODIUM CHLORIDE 0.9% 1000ML 1,000 ML IV STA (15:12)
[2016-10-18] MEDS ORDERED: NITROGLYCERIN 0.4 MG SL PER TAB CHARGE SL PRN ×2 (15:15→19:30)
[2016-10-18] MEDS ORDERED: PREG1CAP36 PO (15:22)
[2016-10-18 15:44] LABS: BASO % 0.3 %; BASO ABS # 0.02 K/uL (0-0.2); COMPLETE YES; EOS % 4.6 %; HEMATOCRIT 44.4 % (37-47); IG% 0.5 %; LYMPH % 18.9 %; LYMPH ABS # 1.24 K/uL (1.2-3.4); MEAN CELL VOLUME 87.4 fL (80-100); MEAN CORPUSCULAR HEMOGLOBIN 29.1 pg (25-34); MEAN CORPUSCULAR HGB CONC 33.3 g/dl (32-36); MEAN PLATELET VOLUME 9.7 fL (7.4-10.4); MONO % 9.6 %; NEUT % 66.1 %; PLATELET COUNT 323 K/uL (130-400); RED BLOOD COUNT 5.08 M/uL (4.2-5.4); WHITE BLOOD COUNT 6.56 K/uL (4.8-10.8)
[2016-10-18 15:48] LABS: POINT OF CARE TROPONIN I < 0.030 ng/ml (0-0.045)
--- NOTE | 2016-10-18 15:56 | DIAGNOSTIC IMAGING REPORT ---
CHEST ONE VIEW PORTABLE CLINICAL HISTORY: Chest pain. COMPARISON STUDY: Chest radiograph April 20, 2015. FINDINGS: Lung volumes are normal. No consolidation to suggest pneumonia is identified. There is no evidence of pulmonary edema. Cardiomediastinal silhouette is stable. There is no pneumothorax or pleural effusion. IMPRESSION: No acute cardiopulmonary findings. Electronically signed by: Martin Joyce M.D. 10/18/2016 3:54 PM Dictated Date/Time: 10/18/2016 3:54 PM
[2016-10-18 16:04] LABS: BLOOD UREA NITROGEN 11 mg/dl (7-18); BUN/CREATININE RATIO 10.9 (10-20); CALCIUM 9.3 mg/dl (8.5-10.1); CARBON DIOXIDE 26 mmol/L (21-32); CHLORIDE 105 mmol/L (98-107); CREATININE 0.97 mg/dl (0.60-1.20); GLUCOSE 118 mg/dl (70-99); POTASSIUM 3.6 mmol/L (3.5-5.1); SODIUM 138 mmol/L (136-145)
[2016-10-18 16:07] LABS: ALKALINE PHOSPHATASE 114 U/L (45-117); ALT/SGPT 29 U/L (12-78); AST/SGOT 16 U/L (15-37)
--- NOTE | 2016-10-18 18:25 | DIAGNOSTIC IMAGING REPORT ---
ULTRASOUND BILATERAL LOWER EXTREMITY VENOUS CLINICAL HISTORY: Atypical chest pain. Dyspnea. Leg swelling. COMPARISON STUDY: No priors. TECHNIQUE: Real-time, grayscale, and color Doppler sonography of the deep veins of the right and left lower extremity was performed from the inguinal crease to the calf. Compression and augmentation were utilized. The examination is degraded by large body habitus. FINDINGS: Right lower extremity: There is minimal stranding identified within the right common femoral vein and within the distal aspect of the right superficial femoral vein. This likely represents trace chronic thrombus. There is no sonographic evidence of acute deep venous thrombosis identified in the right lower extremity. The common femoral, superficial femoral, and popliteal veins are patent and normally compressible. The greater saphenous vein and the profunda femoris vein at the junction with the common femoral vein are clear. The visualized calf veins are patent. Left lower extremity: There is no sonographic evidence of deep venous thrombosis identified in the left lower extremity. The common femoral, superficial femoral, and popliteal veins are patent and normally compressible. The greater saphenous vein and the profunda femoris vein at the junction with the common femoral vein are clear. The visualized calf veins are patent. IMPRESSION: 1. Suspect trace chronic thrombus in the right common femoral and disc superficial femoral veins as above. 2. There is no sonographic evidence of acute deep venous thrombosis identified in the right or left lower extremity. Electronically signed by: Willem March M.D. 10/18/2016 6:24 PM Dictated Date/Time: 10/18/2016 6:21 PM
--- NOTE | 2016-10-18 19:29 | History and Physical ---
History & Physical Date & Time of Service: Oct 18, 2016 at 19:29 Chief Complaint: Chest Pain;High Blood Pressure;Doc Referred Primary Care Physician: Rachelle Calles D.O. History of Present Illness Source: patient this is a 41 yo F with past medical hx of asthma , anxiety disorder, chronic neuropathy followed by spinal surgery presented to ER with complain of dizzy spell , chest pain , lower ext swelling and pain pt had a recent trip to [facility] 3 weeks back ( September 27 ) on her return flight , she was experiencing severe pain on her rt leg , she usually wears compression stocking for chronic lower ext swelling , she had to take the stockings off her rt leg for pain and discomfort , For the last one week , she started to have chest pain at rest -feels like aching pain occasionally pressure ( bubbles in her chest ) with fluttering , pain radiates between her shoulder mentions of having dizzy spell , getting SOB with minimum activity has been using her Albuterol inhaler thinking it could be her asthma attack -no benefit noted her sleep has been disturbed due to chest pain 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 , had to call off form work on Sunday for not feeling well due to SOB , chest pain today at work she felt dizzy and Lightheaded, very SOB the Nurse at her office found her to be tachycardic HR in 105 pt was directed to come to ED Past Medical/Surgical History Medical Problems: (1) Asthma Status: Chronic (2) Hypothyroid Status: Chronic (3) Spinal injury Status: Resolved Family History Cancer Diabetes mellitus Hypertension Kidney disease Social History Smoking Status: Never Smoker Drug Use: none Marital Status: single Occupational Status: employed Multi-Drug Resistant Organisms History of MDRO: No Allergies Coded Allergies: Clindamycin (Verified Allergy, Severe, RED FACE, WHEEZING, 07/18/16) Hydrocodone (Verified Allergy, Severe, RED FACE, WHEEZING, 07/18/16) Iodinated Diagnostic Agents (Verified Allergy, Severe, anaphylactic, ) Tramadol (Verified Allergy, Severe, RED FACE, WHEEZING, 07/18/16) Metaxalone (Verified Allergy, Intermediate, flushed, red, wheezy, nauseous., 07/18/16) Sulfa Antibiotics (Verified Allergy, Intermediate, red face, wheezing, ) Codeine (Verified Allergy, Mild, WHEEZING, 07/18/16) Shellfish (Verified Allergy, Mild, ., 07/18/16) Eucalyptus Oil (Verified Adverse Reaction, Intermediate, skin pedro, gets red., 07/18/16) Ketorolac Tromethamine (Verified Adverse Reaction, Intermediate, RED FACE , 07/18/16) Metoclopramide (Verified Adverse Reaction, Intermediate, INCREASED HEART RATE, 07/18/16) ONLY IV Fentanyl (Verified Adverse Reaction, Unknown, HOT/SICK, 07/18/16) Home Medications Scheduled Citalopram (Citalopram Hydrobromide), 20 MG PO QAM Levothyroxine Sodium (Levothyroxine Sodium), 137 MCG PO QAM Pregabalin (Lyrica), 25 MG PO BID Scheduled PRN Acetaminophen (Tylenol), 1,000 MG PO Q8 PRN for Pain Albuterol Hfa (Ventolin Hfa), 2 PUFFS INH QID PRN for Asthma Symptoms Epinephrine (Epipen), 0.3 MG IM UD PRN for ALLERGIC REACTION Ibuprofen (Advil), 600 MG PO Q6H PRN for Pain Lorazepam (Lorazepam), 0.5 MG PO BID PRN for Anxiety Review of Systems Constitutional: + weakness, + fatigue ENT: No hearing loss, No unusual epistaxis, No nasal symptoms, No sore throat, No tinnitus, No dental problems, No trouble swallowing, No problem reported Respiratory: + shortness of breath Cardiovascular: + chest pain, + palpitations Abdomen: No pain, No nausea, No vomiting, No diarrhea, No constipation, No GI bleeding, No problem reported Musculoskeletal: + swelling (rt lower leg ), + calf pain (rt lower ext) Genitourinary - Female: + dysmenorrhea Neurologic: + weakness, + numbness/tingling (on lower ext chronic ) Psychiatric: + anxiety, + insomnia Physical Exam Vital Signs Date Time Temp Pulse Resp B/P (MAP) Pulse Ox O2 Delivery O2 Flow Rate FiO2 10/18/16 18:47 83 16 136/97 97 Room Air 10/18/16 17:28 88 16 117/70 97 Room Air 10/18/16 16:07 93 16 107/75 100 10/18/16 14:54 99 10/18/16 14:32 36.6 106 20 140/95 99 Room Air General Appearance: no apparent distress Head: normocephalic, atraumatic Eyes: normal inspection Neck: supple, no JVD Respiratory/Chest: lungs clear, normal breath sounds, no respiratory distress, no accessory muscle use, + pertinent finding ( tenderness on left upper chest wall ) Cardiovascular: regular rate, rhythm, no edema, no JVD Abdomen/GI: normal bowel sounds, non tender, soft Extremities/Musculoskelatal: normal inspection, normal capillary refill, no pedal edema, + calf tenderness (rt side ) Neurologic/Psych: no motor/sensory deficits, alert, normal mood/affect, oriented x 3 Skin: normal color, warm/dry, no rash Diagnostics Laboratory Results Results Past 24 Hours Test 10/18/16 15:25 10/18/16 15:29 Range/Units White Blood Count 6.56 4.8-10.8 K/uL Red Blood Count 5.08 4.2-5.4 M/uL Hemoglobin 14.8 12.0-16.0 g/dL Hematocrit 44.4 37-47 % Mean Corpuscular Volume 87.4 80-100 fL Mean Corpuscular Hemoglobin 29.1 25-34 pg Mean Corpuscular Hemoglobin Concent 33.3 32-36 g/dl Platelet Count 323 130-400 K/uL Mean Platelet Volume 9.7 7.4-10.4 fL Neutrophils (%) (Auto) 66.1 % Lymphocytes (%) (Auto) 18.9 % Monocytes (%) (Auto) 9.6 % Eosinophils (%) (Auto) 4.6 % Basophils (%) (Auto) 0.3 % Neutrophils # (Auto) 4.34 1.4-6.5 K/uL Lymphocytes # (Auto) 1.24 1.2-3.4 K/uL Monocytes # (Auto) 0.63 0.11-0.59 K/uL Eosinophils # (Auto) 0.30 0-0.5 K/uL Basophils # (Auto) 0.02 0-0.2 K/uL RDW Standard Deviation 40.8 36.4-46.3 fL RDW Coefficient of Variation 12.7 11.5-14.5 % Immature Granulocyte % (Auto) 0.5 % Immature Granulocyte # (Auto) 0.03 0.00-0.02 K/uL Sodium Level 138 136-145 mmol/L Potassium Level 3.6 3.5-5.1 mmol/L Chloride Level 105 98-107 mmol/L Carbon Dioxide Level 26 21-32 mmol/L Anion Gap 7.0 3-11 mmol/L Blood Urea Nitrogen 11 7-18 mg/dl Creatinine 0.97 0.60-1.20 mg/dl Est Creatinine Clear Calc Drug Dose 91.6 ml/min Estimated GFR () 83.5 Estimated GFR (Non- 72.0 BUN/Creatinine Ratio 10.9 10-20 Random Glucose 118 70-99 mg/dl Calcium Level 9.3 8.5-10.1 mg/dl Total Bilirubin 0.3 0.2-1 mg/dl Direct Bilirubin < 0.1 0-0.2 mg/dl Aspartate Amino Transf (AST/SGOT) 16 15-37 U/L Alanine Aminotransferase (ALT/SGPT) 29 12-78 U/L Alkaline Phosphatase 114 45-117 U/L Troponin I < 0.015 0-0.045 ng/ml Total Protein 7.3 6.4-8.2 gm/dl Albumin 3.7 3.4-5.0 gm/dl Lipase 184 73-393 U/L Bedside D-Dimer > 450 0-450 ng/mlFEU Bedside Troponin I < 0.030 0-0.045 ng/ml Diagnostic Radiology LOWER EXTREMITY DOPPLER : IMPRESSION: 1. Suspect trace chronic thrombus in the right common femoral and disc superficial femoral veins as above. 2. There is no sonographic evidence of acute deep venous thrombosis identified in the right or left lower extremity. CHEST XRAY : IMPRESSION: No acute cardiopulmonary findings. CXR normal EKG NORMAL SINUS RHYTHM @ 93 BEATS PER MIN T WAVE INVERSION IN LEAD II AND V1 , FLATTENING OF T WAVE IN V2-V3 Impression Assessment and Plan CHEST PAIN : presents with pleuritic chest pain with radiation to back associated with SOB /LOPEZ has elevated D Dimer , recent travel hx , rt lower ext DVT high risk for PE can not do a CTA of chest for definitive diagnosis as pt has severe allergic reaction to Contrast dye ( anaphylactic reaction ) ordered for V/Q scan in AM will treat with empirically with IV heparin EKG CHANGE : has T wave inversion on septal leads and Lead II family hx of CAD -Father ordered for ECHO , serial cardiac markers ; repeat EKG in Am empiric Aspirin 81 mg daily may need out pt stress test pt mentions she had tread mill stress test 1 1/2 yrs back was normal HX OF SVT : s/p Ablation X3 at [place] not on any antiarrhythmic meds pt mentions of experiencing flutter /palpitation with chest pain and Dizzy spell monitor in Tele CHRONIC RT LOWER EXT DVT management as out line in #1 ASTHMA : no wheeze noted PRN albuterol-home med continued DEPRESSION : cont Celexa ANXIETY DISORDER : on Ativan 0.5 mg BID PRN CHRONIC NEUROPATHIC PAIN : on Lyrica FULL CODE DVT PROPHYLAXIS : iv heparin wt based protocol DISPOSITION : expected to be discharged home when medically stable Level of Care Telemetry Resuscitation Status FULL RESUSCITATION VTE Prophylaxis VTE Risk Assessment Done? Y/N: Yes Risk Level: Moderate
[2016-10-18] MEDS ORDERED: ALBUTEROL HFA 8 GM INHALER INH PRN (19:30)
[2016-10-18] MEDS ORDERED: MAGNESIUM HYDROXIDE SUSP 30 ML UDC PO PRN (19:30)
[2016-10-18] MEDS ORDERED: ALUMINUM/MAGNESIUM/SIMETH (MAALOX MAX) 30 ML UDC PO PRN (19:30)
[2016-10-18] MEDS ORDERED: IBUPROFEN 600 MG TAB PO PRN (19:30)
[2016-10-18] MEDS ORDERED: POLYETHYLENE (MIRALAX) 17 GM PACK PO PRN (19:30)
[2016-10-18] MEDS ORDERED: EPINEPHRINE ADULT AUTO-INJECT 0.3 MG SYR IM PRN (19:30)
[2016-10-18] MEDS ORDERED: ACETAMINOPHEN 325 MG TAB PO PRN (19:30)
[2016-10-18] MEDS ORDERED: ZOLPIDEM TARTRATE 5 MG TAB PO PRN (19:30)
[2016-10-18] MEDS ORDERED: VNTHFA/IN INH (19:36)
[2016-10-18] MEDS ORDERED: EPP3/2 IM (19:41)
[2016-10-18] MEDS ORDERED: IBUP-1050 PO (19:44)
[2016-10-18] MEDS ORDERED: ACET-1256 PO (19:55)
[2016-10-18 20:28] VITALS: BP 157/107; PULSE 82; TEMP 36.9; O2SAT 100; Ht 167.6 cm; Wt 103.7 kg
[2016-10-18] MEDS ORDERED: HEPARIN 25,000 UNIT/500ML D5W 500 ML IV PRN (20:45)
[2016-10-18] MEDS ORDERED: IV FLUIDS COMPLETED PRN (20:45)
[2016-10-18] MEDS: PREGABALIN 25MG CAP PO SCH (21:03)
[2016-10-18] MEDS: OXYCODONE/ACETAMINOPHEN 5-325 TAB PO PRN (21:07)
--- NOTE | 2016-10-18 21:29 | EMERGENCY ROOM VISIT NOTE ---
ED Visit Note First contact with patient: 14:53 Chief Complaint: Chest pain. History of Present Illness: Ms. Lopez is a 41 year-old white female complaining of chest heaviness. Historically patient reports she has a history of SVT and has had 3 ablations. Family history includes a father with a history of coronary artery artery disease with heart failure. Patient reports a gradual onset of midsternal pain that started approximately 4 days ago. Since that time the pain has been she has had daily pain but reports her pain comes in waves; initially the ways were occurring every 4 hours and now they're occurring every 45 minutes. The pain is currently described as pressure as if something is sitting on her chest. She currently rates her discomfort 6/10. The pain is radiating into both shoulders and lateral chest rubio. She has not identified any aggravating or alleviating factors related to the pain. She has been using her albuterol inhaler for her symptoms without relief. Associated with her pain she reports she has been intermittently feeling like her heart is racing, she has been short of breath and feels like her lower legs are swelling. Additionally she reports she returned from a trip to [place] approximately 3 weeks ago. Patient denies fevers, chills, sweats, skin eruptions, skin color changes, upper respiratory tract symptoms, wheezing, cough, orthopnea, previous clots, claudication, cramping, recent surgery, abdominal pain, nausea, vomiting, constipation, rectal bleeding, black/tarry stools, urinary symptoms, back/flank pain. Review of Systems: As noted above in history of present illness. All body systems were reviewed and found to be negative as noted above. Past Medical History: As previously noted and asthma, bronchitis, kidney stones , hypothyroidism, unspecified left surgery, nasal surgery, right ankle surgery, back surgery, cholecystectomy, appendectomy, tonsillectomy. Current Medications: Medications Dose Route/Sig Max Daily Dose Days Date Category Elavil (Amitriptyline HCl) 50 Mg Tab 50 Mg PO HS 07/18/16 Reported Advil (Ibuprofen) 200 Mg Tab 600 Mg PO Q6H PRN 05/31/16 Reported Levothyroxine Sodium 137 Mcg Tab 137 Mcg PO QAM 03/01/16 Reported Lorazepam 0.5 Mg Tab 0.5 Mg PO BID PRN 03/01/16 Reported Tylenol (Acetaminophen) 500 Mg Tab 1,000 Mg PO Q8 PRN 02/17/16 Reported Epipen (Epinephrine) 0.3 Mg/0.3 Ml Inj 0.3 Mg IM UD PRN 12/01/15 Reported Ventolin Hfa (Albuterol) 200 Puffs/39489 Mcg Aers 2 Puffs INH QID PRN 12/01/15 Reported Citalopram Hydrobromide (Citalopram) 20 Mg Tab 20 Mg PO QAM 10/25/14 Reported Allergies to Medications: Clindamycin, codeine, fentanyl, hydrocodone, IV contrast, sulfa, Keflex, Reglan. Social History: Patient is currently employed; she feels safe in her home environment; she denies tobacco use and admits to alcohol use. Physical Examination: Vital Signs: Date Time Temp Pulse Resp B/P (MAP) Pulse Ox O2 Delivery O2 Flow Rate FiO2 10/18/16 18:47 83 16 136/97 97 Room Air 10/18/16 17:28 88 16 117/70 97 Room Air 10/18/16 16:07 93 16 107/75 100 10/18/16 14:54 99 10/18/16 14:32 36.6 106 20 140/95 99 Room Air GENERAL: 41-year-old female in mild distress due to symptoms, nontoxic-appearing , afebrile and hemodynamically stable. NEUROLOGICAL: Awake, alert and oriented to person, place and time. Answering questions appropriately and following commands. Normal gait. Good hand eye coordination. SKIN: Warm, dry and pink. No soft tissue eruptions or trauma noted. HEENT: Atraumatic and normocephalic. PERRLA. Sclera white and conjunctiva pink. Oral cavity moist and pink. Pharynx is nonerythematous or edematous. Speech normal. No lymphadenopathy. Trachea midline. No jugular venous distention. No carotid bruits. BACK: No tenderness over the bony spine. No CVA tenderness. THORAX: Lungs sounds are clear to auscultation and equal bilaterally with symmetrical chest wall. No wheezing, rales or rhonchi. No crepitus, tenderness , subcutaneous air or deformities noted. HEART: Regular rate and rhythm. No gallops, rubs or murmurs are appreciated. No lifts, heaves or thrills. PMI is not displaced. ABDOMEN: Flat, soft and nontender. Positive bowel sounds in all quadrants. No guarding, rigidity or organomegaly. EXTREMITIES: Moves all extremities well on command and with purpose. All distal neurovascular statuses are intact and equal bilaterally. Mild bilateral pedal edema. No calf tenderness/cords. ED Course: Patient is assessed as noted above. Laboratory Testing: Test 10/18/16 15:25 10/18/16 15:29 Range/Units White Blood Count 6.56 4.8-10.8 K/uL Red Blood Count 5.08 4.2-5.4 M/uL Hemoglobin 14.8 12.0-16.0 g/dL Hematocrit 44.4 37-47 % Mean Corpuscular Volume 87.4 80-100 fL Mean Corpuscular Hemoglobin 29.1 25-34 pg Mean Corpuscular Hemoglobin Concent 33.3 32-36 g/dl Platelet Count 323 130-400 K/uL Mean Platelet Volume 9.7 7.4-10.4 fL Neutrophils (%) (Auto) 66.1 % Lymphocytes (%) (Auto) 18.9 % Monocytes (%) (Auto) 9.6 % Eosinophils (%) (Auto) 4.6 % Basophils (%) (Auto) 0.3 % Neutrophils # (Auto) 4.34 1.4-6.5 K/uL Lymphocytes # (Auto) 1.24 1.2-3.4 K/uL Monocytes # (Auto) 0.63 0.11-0.59 K/uL Eosinophils # (Auto) 0.30 0-0.5 K/uL Basophils # (Auto) 0.02 0-0.2 K/uL RDW Standard Deviation 40.8 36.4-46.3 fL RDW Coefficient of Variation 12.7 11.5-14.5 % Immature Granulocyte % (Auto) 0.5 % Immature Granulocyte # (Auto) 0.03 0.00-0.02 K/uL Erythrocyte Sedimentation Rate 21 0-21 mm/hr Activated Partial Thromboplast Time 27.1 21.0-31.0 SECONDS Partial Thromboplastin Ratio 1.0 Sodium Level 138 136-145 mmol/L Potassium Level 3.6 3.5-5.1 mmol/L Chloride Level 105 98-107 mmol/L Carbon Dioxide Level 26 21-32 mmol/L Anion Gap 7.0 3-11 mmol/L Blood Urea Nitrogen 11 7-18 mg/dl Creatinine 0.97 0.60-1.20 mg/dl Est Creatinine Clear Calc Drug Dose 91.6 ml/min Estimated GFR () 83.5 Estimated GFR (Non- 72.0 BUN/Creatinine Ratio 10.9 10-20 Random Glucose 118 70-99 mg/dl Calcium Level 9.3 8.5-10.1 mg/dl Total Bilirubin 0.3 0.2-1 mg/dl Direct Bilirubin < 0.1 0-0.2 mg/dl Aspartate Amino Transf (AST/SGOT) 16 15-37 U/L Alanine Aminotransferase (ALT/SGPT) 29 12-78 U/L Alkaline Phosphatase 114 45-117 U/L Troponin I < 0.015 0-0.045 ng/ml Total Protein 7.3 6.4-8.2 gm/dl Albumin 3.7 3.4-5.0 gm/dl Lipase 184 73-393 U/L Bedside D-Dimer > 450 0-450 ng/mlFEU Bedside Troponin I < 0.030 0-0.045 ng/ml Chest X-Ray: Was read by myself and the radiologist showing no acute infiltrates , effusions or pneumothorax. Normal heart silhouette and bony anatomy. Bilateral Lower Kramer the Venous Doppler Ultrasounds: Shows no evidence of acute deep vein thrombus in either extremity, suspect trace chronic thrombus in the right common femoral and superficial femoral veins. EKG: Was read by myself and reviewed with Dr. Roberts; shows normal sinus rhythm with a ventricular rate of 93 bpm. Normal axis, intervals and complexes. No acute ST changes indicating ischemia, injury or infarction. Compared to previous from March 2015 in no acute changes were noted. Patient was hydrated with normal saline and she received 1 0.4 mg sublingual nitroglycerin tablet for her chest discomfort. Patient was reassessed multiple times during her stay in the emergency department. Patient's case was reviewed with Dr. Parham; we agreed on diagnostic approach, treatment, disposition and plan. Patient's case was consulted with case management and Dora Galindo, hospitalist, for medical observation/admission and possible VQ scan. Patient was educated about today's findings. Clinical Impression: Acute chest pain. Elevated d-dimer. Decision-Making: Initially my differential diagnosis I considered acute coronary syndrome, thoracic aneurysm, pneumothorax, pulmonary embolism, musculoskeletal disorder and other causes. Disposition and Plan: Patient be brought in the hospital for medical observation /admission; please see hospital's notes and orders for final disposition and plan.
[2016-10-18] MEDS ORDERED: ATV5X PO (21:33)
[2016-10-18] MEDS ORDERED: SYN137 PO (21:33)
[2016-10-18] MEDS ORDERED: CLX/20 PO (21:34)
[2016-10-18 23:30] VITALS: BP 124/84; PULSE 80; TEMP 37.1; O2SAT 98
[2016-10-19] VITALS (7 sets, daily range): BP systolic 106–118; BP diastolic 68–80; PULSE 68–86; TEMP 36.4–37; O2SAT 98–99
[2016-10-19] MEDS: OXYCODONE/ACETAMINOPHEN 5-325 TAB PO PRN ×5 (01:23→20:05)
[2016-10-19 03:16] LABS: HEMATOCRIT 38.3 % (37-47); MEAN CELL VOLUME 86.5 fL (80-100); MEAN CORPUSCULAR HEMOGLOBIN 29.6 pg (25-34); MEAN CORPUSCULAR HGB CONC 34.2 g/dl (32-36); MEAN PLATELET VOLUME 9.2 fL (7.4-10.4); PLATELET COUNT 271 K/uL (130-400); RED BLOOD COUNT 4.43 M/uL (4.2-5.4); WHITE BLOOD COUNT 6.08 K/uL (4.8-10.8)
[2016-10-19 03:22] LABS: PARTIAL THROMBOPLASTIN RATIO 1.7
[2016-10-19 03:35] LABS: CHOLESTEROL 140 mg/dl (0-200); CHOLESTEROL/HDL RATIO 4.7; HDL CHOLESTEROL 30 mg/dl; LDL CHOLESTEROL CALCULATED 73 mg/dl; TRIGLYCERIDES 183 mg/dl (0-150); VERY LOW DENSITY LIPOPROT CALC 37 mg/dl
[2016-10-19] MEDS ORDERED: HEPARIN IV BOLUS 3,000 UNIT in SYRINGE 0 ML IV STA (03:39)
[2016-10-19] MEDS: LORAZEPAM 0.5 MG TAB PO PRN ×2 (04:16→15:24)
[2016-10-19] MEDS: LEVOTHYROXINE 137 MCG TAB PO SCH (05:30)
[2016-10-19] MEDS ORDERED: PNEUMOCOCCAL ADMINISTRATION CHARGE ONE (08:00)
[2016-10-19] MEDS ORDERED: PNEUMOCOCCAL POLYSACCHARIDES 25 MCG/0.5 ML VIAL/SYR IM. ONE (08:00)
[2016-10-19] MEDS: ASPIRIN 81 MG ECTAB PO SCH (08:11)
[2016-10-19] MEDS: CITALOPRAM 20 MG TAB PO SCH (08:11)
[2016-10-19] MEDS: PREGABALIN 25MG CAP PO SCH ×2 (08:14→20:08)
--- NOTE | 2016-10-19 09:21 | ECHOCARDIOGRAM REPORT ---
*NOTICE TO RECEIVING DEMOCRAT AGENCY This information is strictly Confidential and protected under [place] law. [place] law prohibits you from making any further disclosure of this information unless further disclosure is expressly permitted by the written consent of the person to whom it pertains or is authorized by law. A general authorization for the release of medical or other information is not sufficient for this purpose. Hospital accepts no responsibility if the information is made available to any other person, INCLUDING THE PATIENT. Interpretation Summary * Name: DOLORES PAVON Study Date: 10/19/2016 07:26 AM BP: 114/76 mmHg * Patient Location: .2T\S\E217\S\1 HR: 83 * : 1975 (M/d/yyyy) Gender: Female Height: 66 in * Age: 41 yrs Ethnicity: CA Weight: 227 lb * Ordering Physician: Adrienne Bennett * Referring Physician: No Doctor, Assigned * Performed By: Shakira Payan RCS * * Reason For Study: Chest Pain * BSA: 2.1 m2 * The study was technically adequate. * There is no comparison study available. * -- Conclusions -- * Left ventricular systolic function is normal. * Ejection Fraction = 60-65%. * The left ventricular wall motion is normal. * Pulse wave TDI of the anterior and posterior mitral annulas demonstrates normal LV relaxation * The right ventricle is normal size. * The right ventricular systolic function is normal as assessed by tricuspid annular plane systolic excursion (TAPSE) (normal >1.5 cm). * No significant valvular pathology. Procedure Details * A complete two-dimensional transthoracic echocardiogram was performed (2D, M-mode, Doppler and color flow Doppler). Left Ventricle * The left ventricle is normal in size. * There is normal left ventricular wall thickness. * Left ventricular systolic function is normal. * Ejection Fraction = 60-65%. * The left ventricular wall motion is normal. Right Ventricle * The right ventricle is normal size. * The right ventricular systolic function is normal as assessed by tricuspid annular plane systolic excursion (TAPSE) (normal >1.5 cm). Atria * The left atrial size is normal. * Right atrial size is normal. * There is no evidence of atrial septal defect, but resolution does not allow assessment for a patent foramen ovale. Mitral Valve * The mitral valve is normal. * There is no mitral valve stenosis. * Significant mitral regurgitation is absent. Tricuspid Valve * The tricuspid valve is normal. * There is no tricuspid stenosis. * Significant tricuspid regurgitation is absent. Aortic Valve * The aortic valve is trileaflet. * Aortic stenosis is absent. * There is no significant aortic regurgitation. Pulmonic Valve * The pulmonary valve is not well seen, but the Doppler examination is normal without significant regurgitation or stenosis. Great Vessels * The aortic root is normal size. Pericardium/Pleural * There is no pericardial effusion. Great Vessels * Normal inferior vena cava diameter and respiratory variation suggests normal central venous pressure. Left Ventricular Diastolic Function * Pulse wave TDI of the anterior and posterior mitral annulas demonstrates normal LV relaxation MMode 2D Measurements and Calculations IVSd 0.96 cm IVSs 1.2 cm LVIDd 4.5 cm LVIDs 2.9 cm LVPWd 0.97 cm LVPWs 1.3 cm IVS/LVPW 0.99 FS 34.9 % EDV(Teich) 92.0 ml ESV(Teich) 32.9 ml EF(Teich) 64.3 % EDV(cubed) 90.6 ml ESV(cubed) 25.0 ml EF(cubed) 72.4 % % IVS thick 27.0 % % LVPW thick 28.8 % LV mass(C)d 145.8 grams LV mass(C)dI 69.1 grams/m\S\2 LV mass(C)s 110.5 grams LV mass(C)sI 52.4 grams/m\S\2 CO(Teich) 4.4 l/min CI(Teich) 2.1 l/min/m\S\2 SV(Teich) 59.2 ml SI(Teich) 28.0 ml/m\S\2 CO(cubed) 4.9 l/min CI(cubed) 2.3 l/min/m\S\2 SV(cubed) 65.6 ml SI(cubed) 31.1 ml/m\S\2 Ao root diam 3.3 cm Ao root area 8.8 cm\S\2 ACS 1.8 cm LA dimension 3.5 cm asc Aorta Diam 2.9 cm LA/Ao 1.0 LVAd ap4 33.3 cm\S\2 LVLd ap4 8.1 cm EDV(MOD-sp4) 112.0 ml LVAs ap4 17.8 cm\S\2 LVLs ap4 6.8 cm ESV(MOD-sp4) 38.0 ml EF(MOD-sp4) 66.1 % LVAd ap2 26.9 cm\S\2 LVLd ap2 7.9 cm EDV(MOD-sp2) 76.0 ml LVAs ap2 14.2 cm\S\2 LVLs ap2 6.6 cm ESV(MOD-sp2) 26.0 ml EF(MOD-sp2) 65.8 % CO(MOD-sp4) 5.6 l/min CI(MOD-sp4) 2.6 l/min/m\S\2 SV(MOD-sp4) 74.0 ml SI(MOD-sp4) 35.1 ml/m\S\2 CO(MOD-sp2) 3.8 l/min CI(MOD-sp2) 1.8 l/min/m\S\2 SV(MOD-sp2) 50.0 ml SI(MOD-sp2) 23.7 ml/m\S\2 Doppler Measurements and Calculations MV E max slime 106.6 cm/sec MV A max slime 61.7 cm/sec MV E/A 1.7 MV P1/2t max slime 108.6 cm/sec MV P1/2t 77.0 msec MVA(P1/2t) 2.9 cm\S\2 MV dec slope 413.0 cm/sec\S\2 MV dec time 0.24 sec Ao V2 max 125.5 cm/sec Ao max PG 6.3 mmHg Ao max PG (full) 2.7 mmHg LV V1 max PG 3.6 mmHg LV V1 max 94.3 cm/sec PA V2 max 82.1 cm/sec PA max PG 2.7 mmHg TR max slime 179.5 cm/sec
[2016-10-19 09:58] LABS: CKMB/CK RATIO 1.2 (0-3.0)
--- NOTE | 2016-10-19 10:57 | Progress Note ---
Medicine Progress Note Date & Time of Visit: Oct 19, 2016 at 10:52. Subjective patient seen resting in bed, comfortable states her chest pain and back pain and dizziness seems to be improved today denies dyspnea, palpitations, nausea no bleeding has mild b/l leg pain no other symptoms Objective Last 8 Hrs Date Time Temp Pulse Resp B/P (MAP) Pulse Ox O2 Delivery O2 Flow Rate FiO2 10/19/16 08:00 99 Room Air 10/19/16 08:00 36.9 86 16 106/70 (82) 99 Room Air 10/19/16 04:00 36.5 83 20 114/76 (89) 99 Room Air 10/19/16 04:00 Room Air Physical Exam: General- oriented x 3, not in distress, speaks in sentences with no effort Eyes- EOMI, anicteric Neck- supple, no JVD Lungs- clear breath sounds bilaterally Heart- regular rhythm; no murmur, normal rate Abdomen- normal bowel sounds, soft, nontender Extremities- no pretibial edema, no calf tenderness; peripheral pulses intact Neuro- alert, oriented x 3; no gross focal deficits Skin- warm & dry Laboratory Results: Last 24 Hours Test 10/18/16 15:25 10/18/16 15:29 10/19/16 03:01 10/19/16 09:16 White Blood Count 6.56 K/uL 6.08 K/uL Red Blood Count 5.08 M/uL 4.43 M/uL Hemoglobin 14.8 g/dL 13.1 g/dL Hematocrit 44.4 % 38.3 % Mean Corpuscular Volume 87.4 fL 86.5 fL Mean Corpuscular Hemoglobin 29.1 pg 29.6 pg Mean Corpuscular Hemoglobin Concent 33.3 g/dl 34.2 g/dl Platelet Count 323 K/uL 271 K/uL Mean Platelet Volume 9.7 fL 9.2 fL Neutrophils (%) (Auto) 66.1 % Lymphocytes (%) (Auto) 18.9 % Monocytes (%) (Auto) 9.6 % Eosinophils (%) (Auto) 4.6 % Basophils (%) (Auto) 0.3 % Neutrophils # (Auto) 4.34 K/uL Lymphocytes # (Auto) 1.24 K/uL Monocytes # (Auto) 0.63 K/uL Eosinophils # (Auto) 0.30 K/uL Basophils # (Auto) 0.02 K/uL RDW Standard Deviation 40.8 fL 39.9 fL RDW Coefficient of Variation 12.7 % 12.5 % Immature Granulocyte % (Auto) 0.5 % Immature Granulocyte # (Auto) 0.03 K/uL Erythrocyte Sedimentation Rate 21 mm/hr Activated Partial Thromboplast Time 27.1 SECONDS 44.6 SECONDS Partial Thromboplastin Ratio 1.0 1.7 Sodium Level 138 mmol/L Potassium Level 3.6 mmol/L Chloride Level 105 mmol/L Carbon Dioxide Level 26 mmol/L Anion Gap 7.0 mmol/L Blood Urea Nitrogen 11 mg/dl Creatinine 0.97 mg/dl Est Creatinine Clear Calc Drug Dose 91.6 ml/min Estimated GFR () 83.5 Estimated GFR (Non- 72.0 BUN/Creatinine Ratio 10.9 Random Glucose 118 mg/dl Calcium Level 9.3 mg/dl Total Bilirubin 0.3 mg/dl Direct Bilirubin < 0.1 mg/dl Aspartate Amino Transf (AST/SGOT) 16 U/L Alanine Aminotransferase (ALT/SGPT) 29 U/L Alkaline Phosphatase 114 U/L Troponin I < 0.015 ng/ml < 0.015 ng/ml < 0.015 ng/ml Total Protein 7.3 gm/dl Albumin 3.7 gm/dl Lipase 184 U/L Bedside D-Dimer > 450 ng/mlFEU Bedside Troponin I < 0.030 ng/ml Total Creatine Kinase 57 U/L 59 U/L Creatine Kinase MB < 0.5 ng/ml 0.7 ng/ml Creatine Kinase MB Ratio 1.2 Triglycerides Level 183 mg/dl Cholesterol Level 140 mg/dl HDL Cholesterol 30 mg/dl LDL Cholesterol, Calculated 73 mg/dl VLDL Cholesterol, Calculated 37 mg/dl Cholesterol/HDL Ratio 4.7 Test 10/19/16 10:37 Assessment & Plan CHEST PAIN : presents with pleuritic chest pain with radiation to back associated with SOB /LOPEZ has elevated D Dimer , recent travel hx , rt lower ext DVT high risk for PE can not do a CTA of chest for definitive diagnosis as pt has severe allergic reaction to Contrast dye ( anaphylactic reaction ) -- VQ scan pending on Heparin - ACS ruled out echo: no mention of effusion CHRONIC RT COMMON FEMORAL AND SUPERFICIAL FEMORAL DVT - D dimer > 450 - travelled to [place] last September 27, 2016 then developed right leg pain - may need anticoagulation 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 EKG CHANGE : has T wave inversion on septal leads and Lead II family hx of CAD -Father ordered for ECHO , serial cardiac markers ; repeat EKG in [place] empiric Aspirin 81 mg daily may need out pt stress test pt mentions she had tread mill stress test 1 1/2 yrs back was normal -- acs ruled out may need outpatient stress test HX OF SVT : s/p Ablation X3 at [facility] not on any antiarrhythmic meds pt mentions of experiencing flutter /palpitation with chest pain and Dizzy spell monitor in Tele ASTHMA : no wheeze noted PRN albuterol-home med continued DEPRESSION : cont Celexa ANXIETY DISORDER : on Ativan 0.5 mg BID PRN CHRONIC NEUROPATHIC PAIN : on Lyrica FULL CODE DVT PROPHYLAXIS : iv heparin wt based protocol DISPOSITION : expected to be discharged home when medically stable Level of Care Telemetry Resuscitation Status FULL RESUSCITATION VTE Prophylaxis VTE Risk Assessment Done? Y/N: Yes Risk Level: Moderate Current Inpatient Medications: Current Inpatient Medications Medications (Trade) Dose Ordered Sig/Babar Route Start Time Stop Time Status Last Admin Dose Admin Acetaminophen (Tylenol Tab) 650 mg Q4H PRN PO 10/18/16 19:30 11/17/16 19:29 Al Hydrox/Mg Hydrox/Simethicone (Maalox Max Susp) 15 ml Q4H PRN PO 10/18/16 19:30 11/17/16 19:29 Magnesium Hydroxide (Milk Of Magnesia Susp) 30 ml Q12H PRN PO 10/18/16 19:30 11/17/16 19:29 Zolpidem Tartrate (Ambien Tab) 5 mg HSZ PRN PO 10/18/16 19:30 11/17/16 19:29 Ondansetron HCl (Zofran Inj) 4 mg Q6H PRN IV 10/18/16 19:30 11/17/16 19:29 Nitroglycerin (Nitrostat Tab) 0.4 mg UD PRN SL 10/18/16 19:30 11/17/16 19:29 Aspirin (Ecotrin Tab) 81 mg QAM PO 10/19/16 09:00 11/18/16 08:59 10/19/16 08:11 81 MG Polyethylene (Miralax Powder Packet) 17 gm DAILY PRN PO 10/18/16 19:30 11/17/16 19:29 Albuterol (Ventolin Hfa Inhaler) 2 puffs QID PRN INH 10/18/16 19:30 11/17/16 19:29 Citalopram Hydrobromide (celeXA TAB) 20 mg QAM PO 10/19/16 09:00 11/18/16 08:59 10/19/16 08:11 20 MG Epinephrine (Epipen) 0.3 mg UD PRN IM 10/18/16 19:30 11/17/16 19:29 Ibuprofen (Motrin Tab) 600 mg Q6H PRN PO 10/18/16 19:30 11/17/16 19:29 Levothyroxine Sodium (Synthroid Tab) 137 mcg DAILYBB PO 10/19/16 06:00 11/18/16 05:59 10/19/16 05:30 137 MCG Lorazepam (Ativan Tab) 0.5 mg BID PRN PO 10/18/16 19:30 11/17/16 19:29 10/19/16 04:16 0.5 MG Pregabalin (Lyrica Cap) 25 mg BID PO 10/18/16 21:00 11/17/16 20:59 10/19/16 08:14 25 MG Oxycodone/ Acetaminophen (Percocet 5-325mg Tab) 1 tab Q4H PRN PO 10/18/16 20:00 11/01/16 19:59 10/19/16 08:14 1 TAB Oxycodone/ Acetaminophen (Percocet 5-325mg Tab) 2 tab Q4H PRN PO 10/18/16 20:00 11/01/16 19:59 10/19/16 05:30 2 TAB Miscellaneous (Iv Fluids Completed) 1 ea PRN PRN N/A 10/18/16 20:45 10/18/17 20:44 Heparin Sodium/ Dextrose 500 ml @ 31 mls/hr Q16H8M PRN IV 10/18/16 20:45 11/17/16 20:44 10/18/16 21:01 28 MLS/HR
[2016-10-19 11:05] LABS: PARTIAL THROMBOPLASTIN RATIO 2.5
--- NOTE | 2016-10-19 11:18 | DIAGNOSTIC IMAGING REPORT ---
LUNG IMAGING VQ HISTORY: Atypical CHEST PAIN ELEVATED D DIMER /CONTRAST ALLERGY SEVERE TECHNIQUE: Immediately following the inhalation of 33 mCi of technetium 99 M DTPA and the intravenous injection of 5.4 mCi of technetium 99 M MAA, ventilation and perfusion scans were performed. Anterior, posterior, oblique, and lateral views of the chest were obtained for both scans. COMPARISON STUDY: Chest 10/18/2016. FINDINGS: There are no segmental or mismatched defects identified within the lungs. Cardiac silhouette is mildly enlarged. IMPRESSION: Above findings are consistent with a very low probability scan. Electronically signed by: Lauri Thompson M.D. 10/19/2016 11:17 AM Dictated Date/Time: 10/19/2016 11:15 AM
[2016-10-19] MEDS ORDERED: LORAZEPAM 0.5 MG TAB PO PRN (14:30)
[2016-10-19] MEDS: SODIUM CHLORIDE 0.9% 1000ML 1,000 ML IV SCH (15:18)
[2016-10-19] MEDS ORDERED: GADAVIST IV PRN (16:30)
--- NOTE | 2016-10-19 16:34 | DIAGNOSTIC IMAGING REPORT ---
MR ANGIOGRAM OF THE CHEST COMBO CLINICAL HISTORY: Atypical chest pain. Dizziness. Back pain. Clinical concern for dissection. COMPARISON STUDY: Chest x-ray dated 10/18/2016. Abdominal CT dated 03/26/2016. TECHNIQUE: MR angiogram of the chest is performed utilizing unenhanced axial, sagittal, and coronal FIESTA sequences. Postcontrast sagittal images are acquired following the IV administration of 10 cc of Gadavist. 3-D reformats are created and assessed. FINDINGS: The thoracic aorta is normal in caliber and demonstrates bovine variant arch anatomy. There is no dissection seen. The arch vessels are widely patent. The heart is normal in size and without pericardial effusion. The lung parenchyma is clear as imaged although not well assessed by MRI. There is no evidence of mediastinal, hilar, or axillary lymphadenopathy. The liver is enlarged measuring 22 cm in length. There is an indeterminant T2 hyperintense lesion in the right lobe which measures 1.8 cm. A subcentimeter cyst is noted in the left kidney. The gallbladder is surgically absent. The partially visualized upper abdominal viscera is otherwise grossly normal but incompletely assessed. No bony abnormality is identified. IMPRESSION: 1. The thoracic aorta is normal in caliber. There is no evidence of thoracic aortic dissection as clinically queried. 2. No obvious pulmonary abnormality is identified. Note that the lungs are not well assessed by MRI. 3. The liver is enlarged and there is an indeterminant 1.8 cm T2 hyperintense lesion. This may represent a benign hemangioma but was not clearly seen on the 03/26/[address] scan and cannot be further characterized on this examination. Consider nonemergent follow-up with a contrast-enhanced MRI of the liver for definitive characterization. Electronically signed by: Willem March M.D. 10/19/2016 4:32 PM Dictated Date/Time: 10/19/2016 4:25 PM
[2016-10-19] MEDS: RIVAROXABAN TAB 15 MG TAB PO SCH (21:48)
[2016-10-20] VITALS (10 sets, daily range): BP systolic 110–144; BP diastolic 77–85; PULSE 69–88; TEMP 36.4–36.8; O2SAT 97–99
[2016-10-20] MEDS: LORAZEPAM 0.5 MG TAB PO PRN ×2 (00:17→23:15)
[2016-10-20] MEDS: OXYCODONE/ACETAMINOPHEN 5-325 TAB PO PRN ×5 (00:18→23:16)
[2016-10-20] MEDS: SODIUM CHLORIDE 0.9% 1000ML 1,000 ML IV SCH (05:00)
[2016-10-20 06:29] LABS: PARTIAL THROMBOPLASTIN RATIO 1.3
[2016-10-20] MEDS: RIVAROXABAN TAB 15 MG TAB PO SCH ×2 (07:47→19:56)
[2016-10-20] MEDS: ONDANSETRON INJ 2 MG/ML 2 ML VIAL IV PRN ×2 (07:47→17:50)
[2016-10-20] MEDS: CITALOPRAM 20 MG TAB PO SCH (07:48)
[2016-10-20] MEDS: LEVOTHYROXINE 137 MCG TAB PO SCH (07:48)
[2016-10-20] MEDS: ASPIRIN 81 MG ECTAB PO SCH (07:48)
[2016-10-20] MEDS: PREGABALIN 25MG CAP PO SCH ×2 (07:51→19:56)
--- NOTE | 2016-10-20 14:17 | Progress Note ---
Medicine Progress Note Date & Time of Visit: Oct 20, 2016 at 14:06. Subjective patient seen resting in bed, comfortable in good spirits states chest pain and back pain is improving- moderate, worse with deep breathing dyspnea with exertion also improved states right leg swelling has also improved no headache, dizziness, nausea, palpitations no bleeding no other symptoms states she is ready and would like to be discharged today Objective Last 8 Hrs Date Time Temp Pulse Resp B/P (MAP) Pulse Ox O2 Delivery O2 Flow Rate FiO2 10/20/16 12:00 99 Room Air 10/20/16 11:50 36.5 83 20 144/83 (103) 97 Room Air 10/20/16 08:00 99 Room Air 10/20/16 07:44 36.4 71 18 119/80 (93) 99 Room Air Physical Exam: General- oriented x 3, not in distress, speaks in sentences with no effort Eyes- anicteric Neck- s no JVD Lungs- clear breath sounds bilaterally no rales/wheezes Heart- regular rhythm; no murmur, normal rate Abdomen- normal bowel sounds, soft, nontender Extremities- no pretibial edema, no calf tenderness Neuro- alert, oriented x 3; no gross focal deficits Skin- warm & dry Laboratory Results: Last 24 Hours Test 10/20/16 05:37 10/20/16 14:04 Activated Partial Thromboplast Time 33.5 SECONDS Partial Thromboplastin Ratio 1.3 Assessment & Plan CHEST PAIN, POSSIBLE PULMONARY EMBOLISM presents with pleuritic chest pain with radiation to back associated with SOB /LOPEZ has elevated D Dimer >450 , recent travel hx , rt lower ext DVT seen on Doppler US (see #2) -- can not do a CTA of chest for definitive diagnosis as pt has severe allergic reaction to Contrast dye ( anaphylactic reaction ) VQ scan: low probability of PE MRA chest: 1. The thoracic aorta is normal in caliber. There is no evidence of thoracic aortic dissection as clinically queried. 2. No obvious pulmonary abnormality is identified. Note that the lungs are not well assessed by MRI. 3. The liver is enlarged and there is an indeterminant 1.8 cm T2 hyperintense lesion. This may represent a benign hemangioma but was not clearly seen on the 03/26/[address] scan and cannot be further characterized on this examination. Consider nonemergent follow-up with a contrast-enhanced MRI of the liver for definitive characterization. - discussed with Director Long Term Care Dr. Jae Hilton given patient's clinical presentation, elected to treat with anticoagulation, patient was on heparin drip, transitioned to Xarelto main risk factor is recent travel, at least 3 months anticoagulation recommended discussed benefits and risks of Xarelto, patient understands and is agreeable with plan of care - patient requesting for PRN pain medication aside from Tylenol allergy list noted, will prescribe Percocet x 10 tabs she is scheduled to see pain management service next month CHRONIC RT COMMON FEMORAL AND SUPERFICIAL FEMORAL DVT - D dimer > 450 - travelled to [place] last September 27, 2016 then developed right leg pain - discussed with Director Long Term Care Dr. Jae Hilton given patient's clinical presentation, elected to treat with anticoagulation, patient was on heparin drip, transitioned to Xarelto main risk factor is recent travel, at least 3 months anticoagulation recommended discussed benefits and risks of Xarelto, patient understands and is agreeable with plan of care EKG CHANGE has T wave inversion on Lead II family hx of CAD -Father - acute coronary syndrome ruled out cardiac markers negative echo: -- Conclusions -- * Left ventricular systolic function is normal. * Ejection Fraction = 60-65%. * The left ventricular wall motion is normal. * Pulse wave TDI of the anterior and posterior mitral annulas demonstrates normal LV relaxation * The right ventricle is normal size. * The right ventricular systolic function is normal as assessed by tricuspid annular plane systolic excursion (TAPSE) (normal >1.5 cm). * No significant valvular pathology. 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 -- noted on MRA chest (please refer to #1) -- follow up as outpatient HX OF SVT : s/p Ablation X3 at [place] not on any antiarrhythmic meds -- no episodes noted on telemetry ASTHMA stable PRN albuterol-home med continued DEPRESSION stable cont Celexa ANXIETY DISORDER on Ativan 0.5 mg BID PRN CHRONIC NEUROPATHIC PAIN on Lyrica FULL CODE DVT PROPHYLAXIS : iv heparin wt based protocol DISPOSITION : d/c home today ff up with PCP in 3-5 days Current Inpatient Medications: Current Inpatient Medications Medications (Trade) Dose Ordered Sig/Babar Route Start Time Stop Time Status Last Admin Dose Admin Acetaminophen (Tylenol Tab) 650 mg Q4H PRN PO 10/18/16 19:30 11/17/16 19:29 Al Hydrox/Mg Hydrox/Simethicone (Maalox Max Susp) 15 ml Q4H PRN PO 10/18/16 19:30 11/17/16 19:29 Magnesium Hydroxide (Milk Of Magnesia Susp) 30 ml Q12H PRN PO 10/18/16 19:30 11/17/16 19:29 Zolpidem Tartrate (Ambien Tab) 5 mg HSZ PRN PO 10/18/16 19:30 11/17/16 19:29 Ondansetron HCl (Zofran Inj) 4 mg Q6H PRN IV 10/18/16 19:30 11/17/16 19:29 10/20/16 07:47 4 MG Nitroglycerin (Nitrostat Tab) 0.4 mg UD PRN SL 10/18/16 19:30 11/17/16 19:29 Polyethylene (Miralax Powder Packet) 17 gm DAILY PRN PO 10/18/16 19:30 11/17/16 19:29 Albuterol (Ventolin Hfa Inhaler) 2 puffs QID PRN INH 10/18/16 19:30 11/17/16 19:29 Citalopram Hydrobromide (celeXA TAB) 20 mg QAM PO 10/19/16 09:00 11/18/16 08:59 10/20/16 07:48 20 MG Epinephrine (Epipen) 0.3 mg UD PRN IM 10/18/16 19:30 11/17/16 19:29 Ibuprofen (Motrin Tab) 600 mg Q6H PRN PO 10/18/16 19:30 11/17/16 19:29 Levothyroxine Sodium (Synthroid Tab) 137 mcg DAILYBB PO 10/19/16 06:00 11/18/16 05:59 10/20/16 07:48 137 MCG Lorazepam (Ativan Tab) 0.5 mg BID PRN PO 10/18/16 19:30 11/17/16 19:29 10/20/16 00:17 0.5 MG Pregabalin (Lyrica Cap) 25 mg BID PO 10/18/16 21:00 11/17/16 20:59 10/20/16 07:51 25 MG Oxycodone/ Acetaminophen (Percocet 5-325mg Tab) 1 tab Q4H PRN PO 10/18/16 20:00 11/01/16 19:59 10/20/16 07:46 1 TAB Oxycodone/ Acetaminophen (Percocet 5-325mg Tab) 2 tab Q4H PRN PO 10/18/16 20:00 11/01/16 19:59 10/20/16 12:32 2 TAB Miscellaneous (Iv Fluids Completed) 1 ea PRN PRN N/A 10/18/16 20:45 10/18/17 20:44 Lorazepam (Ativan Tab) 0.5 mg ONE PRN PO 10/19/16 14:30 11/18/16 14:29 Sodium Chloride 1,000 ml @ 80 mls/hr [id number] IV 10/19/16 14:30 11/18/16 14:29 10/20/16 05:00 80 MLS/HR Gadobutrol (Gadavist) 10 mmol UD PRN IV 10/19/16 16:30 10/23/16 16:29 Rivaroxaban (Xarelto Tab) 15 mg BID PO 10/19/16 21:00 11/09/16 20:59 10/20/16 07:47 15 MG
[2016-10-20] MEDS ORDERED: XRL15 PO (14:26)
[2016-10-20] MEDS ORDERED: OXYC-57 PO (14:26)
[2016-10-20 14:30] LABS: BASO % 0.5 %; BASO ABS # 0.03 K/uL (0-0.2); EOS % 7.2 %; HEMATOCRIT 38.6 % (37-47); IG% 0.3 %; LYMPH % 19.2 %; LYMPH ABS # 1.22 K/uL (1.2-3.4); MEAN CELL VOLUME 86.4 fL (80-100); MEAN CORPUSCULAR HEMOGLOBIN 29.3 pg (25-34); MEAN PLATELET VOLUME 9.4 fL (7.4-10.4); MONO % 13.3 %; NEUT % 59.5 %; PLATELET COUNT 284 K/uL (130-400); RED BLOOD COUNT 4.47 M/uL (4.2-5.4); WHITE BLOOD COUNT 6.37 K/uL (4.8-10.8)
--- NOTE | 2016-10-20 14:34 | Discharge Instructions ---
Discharge Instructions Admission Admission Date: Oct 19, 2016 at 15:36 Admission Diagnosis: Chest Pain. Discharge Care Plan - Problem: (1) DVT (deep venous thrombosis) Date of VTE Diagnosis: Oct 18, 2016 Time of VTE Diagnosis: 18:21 Care Plan - Goal(s): Diagnostic testing, Therapeutic intervention Care Plan - Instructions: Activity Recommendations: limitations (no heavy exertion until re-evaluated by Primary Care Physician) Recommended Home Diet: Regular Provider Instructions: PLEASE REVIEW YOUR NEW MEDICATION LIST AND FOLLOW INSTRUCTIONS CAREFULLY YOU WILL NEED TO TAKE XARELTO 15 MG TWICE A DAY FOR 19 DAYS, THEN YOU WILL NEED TO TAKE XARELTO 20MG DAILY. PLEASE ASK FOR A PRESCRIPTION FROM YOUR PRIMARY CARE PROVIDER FOR THE XARELTO 20MG PO DAILY. ALWAYS TAKE XARELTO WITH FOOD. NO DRIVING WHILE TAKING PERCOCET. CALL PRIMARY CARE PHYSICIAN OR RETURN TO ER IMMEDIATELY IF WITH RECURRENCE OF SYMPTOMS, BLEEDING, SHORTNESS OF BREATH, LEG PAIN, CHEST PAIN, PALPITATIONS, DIZZINESS , WEAKNESS. GO TO THE ER IMMEDIATELY FOR EVALUATION IF YOU SUSTAIN ANY HEAD TRAUMA. FOLLOW UP WITH YOUR PRIMARY CARE PHYSICIAN IN 1 WEEK. Call your Doctor if you experience any of the following: * Swelling or Pain in your leg * Sudden, continuous pain deep in a muscle * Pain that worsens when you are active or when you stand still for a long time * Chest Pain * Sudden Shortness of Breath * Rapid or pounding heart beat * Fainting * Dizziness * Cough with blood or bloody sputum * Sweating more than normal * Bruises * heavy or uncontrolled bleeding * Blood in your urine, stool or vomit * Black or tarry stools Caring for Your Self at Home: * Avoid sitting, standing or lying down for long periods without moving your legs and feet * When traveling by car, stop to get out and move around at least once every 3 hours * On long airplane, train or bus rides, get up and move around when possible * If you can't get up, wiggle your toes and tighten your calves to keep your blood moving Follow Up: * It is important for you to keep your follow up appointments with your medical provider. VTE Core Measures Inpt VTE Proph given/why not?: Unfractionated heparin SQ Reason no anticoag overlap I/P: Treatment not indicated Reason no anticoag overlap @DC: Treatment not indicated Follow Up Follow-Up: FOLLOW UP WITH PRIMARY CARE PHYSICIAN IN 1 WEEK. Work Instructions Return To Work: after follow-up Laboratory Results Test Results: Lipid Panel Test 10/19/16 03:01 Range/Units Triglycerides Level 183 H 0-150 mg/dl Cholesterol Level 140 0-200 mg/dl HDL Cholesterol 30 mg/dl Cholesterol/HDL Ratio 4.7 LDL Cholesterol, Calculated 73 mg/dl Roshan Werner Recommendations: Call your doctor if: * Temperature above 101 degrees * Pain not relieved by pain medicine ordered * There is increased drainage or redness from any incision * You have any unanswered questions or concerns. Your Doctors Instructions noted above were prepared by provider Tai Orozco.
[2016-10-20 14:35] LABS: COMPLETE YES; MEAN CORPUSCULAR HGB CONC 33.9 g/dl (32-36)
--- NOTE | 2016-10-20 14:41 | Discharge Summary ---
Discharge Summary Date of Service Oct 20, 2016. 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 Procedures: LUNG IMAGING VQ HISTORY: Atypical CHEST PAIN ELEVATED D DIMER /CONTRAST ALLERGY SEVERE TECHNIQUE: Immediately following the inhalation of 33 mCi of technetium 99 M DTPA and the intravenous injection of 5.4 mCi of technetium 99 M MAA, ventilation and perfusion scans were performed. Anterior, posterior, oblique, and lateral views of the chest were obtained for both scans. COMPARISON STUDY: Chest 10/18/2016. FINDINGS: There are no segmental or mismatched defects identified within the lungs. Cardiac silhouette is mildly enlarged. IMPRESSION: Above findings are consistent with a very low probability scan. Electronically signed by: Lauri Thompson M.D. 10/19/2016 11:17 AM MR ANGIOGRAM OF THE CHEST COMBO CLINICAL HISTORY: Atypical chest pain. Dizziness. Back pain. Clinical concern for dissection. COMPARISON STUDY: Chest x-ray dated 10/18/2016. Abdominal CT dated 03/26/2016. TECHNIQUE: MR angiogram of the chest is performed utilizing unenhanced axial, sagittal, and coronal FIESTA sequences. Postcontrast sagittal images are acquired following the IV administration of 10 cc of Gadavist. 3-D reformats are created and assessed. FINDINGS: The thoracic aorta is normal in caliber and demonstrates bovine variant arch anatomy. There is no dissection seen. The arch vessels are widely patent. The heart is normal in size and without pericardial effusion. The lung parenchyma is clear as imaged although not well assessed by MRI. There is no evidence of mediastinal, hilar, or axillary lymphadenopathy. The liver is enlarged measuring 22 cm in length. There is an indeterminant T2 hyperintense lesion in the right lobe which measures 1.8 cm. A subcentimeter cyst is noted in the left kidney. The gallbladder is surgically absent. The partially visualized upper abdominal viscera is otherwise grossly normal but incompletely assessed. No bony abnormality is identified. IMPRESSION: 1. The thoracic aorta is normal in caliber. There is no evidence of thoracic aortic dissection as clinically queried. 2. No obvious pulmonary abnormality is identified. Note that the lungs are not well assessed by MRI. 3. The liver is enlarged and there is an indeterminant 1.8 cm T2 hyperintense lesion. This may represent a benign hemangioma but was not clearly seen on the 03/26/[address] scan and cannot be further characterized on this examination. Consider nonemergent follow-up with a contrast-enhanced MRI of the liver for definitive characterization. Electronically signed by: Willem March M.D. 10/19/2016 4:32 PM ULTRASOUND BILATERAL LOWER EXTREMITY VENOUS CLINICAL HISTORY: Atypical chest pain. Dyspnea. Leg swelling. COMPARISON STUDY: No priors. TECHNIQUE: Real-time, grayscale, and color Doppler sonography of the deep veins of the right and left lower extremity was performed from the inguinal crease to the calf. Compression and augmentation were utilized. The examination is degraded by large body habitus. FINDINGS: Right lower extremity: There is minimal stranding identified within the right common femoral vein and within the distal aspect of the right superficial femoral vein. This likely represents trace chronic thrombus. There is no sonographic evidence of acute deep venous thrombosis identified in the right lower extremity. The common femoral, superficial femoral, and popliteal veins are patent and normally compressible. The greater saphenous vein and the profunda femoris vein at the junction with the common femoral vein are clear. The visualized calf veins are patent. Left lower extremity: There is no sonographic evidence of deep venous thrombosis identified in the left lower extremity. The common femoral, superficial femoral, and popliteal veins are patent and normally compressible. The greater saphenous vein and the profunda femoris vein at the junction with the common femoral vein are clear. The visualized calf veins are patent. IMPRESSION: 1. Suspect trace chronic thrombus in the right common femoral and disc superficial femoral veins as above. 2. There is no sonographic evidence of acute deep venous thrombosis identified in the right or left lower extremity. Pending Studies/Follow-Up: Patient will need prescription for Xarelto 20mg po daily after finishing Xarelto 15 mg po BID x 19 days. Please refer to hospital course below for further details. Medication Reconciliation New Medications: Oxycodone/Acetaminophen 5MG/325MG (Percocet 5MG/325MG) Tab 1 TAB PO Q4H PRN for severe pain, #10 TAB 0 Refills PAIN Rivaroxaban (Xarelto) 15 Mg Tab 15 MG PO BID for 19 Days, #38 TAB 0 Refills always take with food Continued Medications: Acetaminophen (Tylenol) 500 Mg Tab 1000 MG PO Q8 PRN for Pain, TAB Albuterol Hfa (Ventolin Hfa) 200 Puffs/58501 Mcg Aers 2 PUFFS INH QID PRN for Asthma Symptoms for 30 Days, #1 INHALER 2 Refills (This prescription has been renewed) Citalopram (Citalopram Hydrobromide) 20 Mg Tab 20 MG PO QAM Epinephrine (Epipen) 0.3 Mg/0.3 Ml Inj 0.3 MG IM UD PRN for ALLERGIC REACTION Levothyroxine Sodium (Levothyroxine Sodium) 137 Mcg Tab 137 MCG PO QAM Lorazepam (Lorazepam) 0.5 Mg Tab 0.5 MG PO BID PRN for Anxiety Pregabalin (Lyrica) 25 Mg Cap 25 MG PO BID, CAP Discontinued Medications: Ibuprofen (Advil) 200 Mg Tab 600 MG PO Q6H PRN for Pain, TAB Admission Information HPI (per Admitting provider): this is a 41 yo F with past medical hx of asthma , anxiety disorder, chronic neuropathy followed by spinal surgery presented to ER with complain of dizzy spell , chest pain , lower ext swelling and pain pt had a recent trip to [facility] 3 weeks back ( September 27 ) on her return flight , she was experiencing severe pain on her rt leg , she usually wears compression stocking for chronic lower ext swelling , she had to take the stockings off her rt leg for pain and discomfort , For the last one week , she started to have chest pain at rest -feels like aching pain occasionally pressure ( bubbles in her chest ) with fluttering , pain radiates between her shoulder mentions of having dizzy spell , getting SOB with minimum activity has been using her Albuterol inhaler thinking it could be her asthma attack -no benefit noted her sleep has been disturbed due to chest pain 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 [employer] , had to call off form work on Sunday for not feeling well due to SOB , chest pain today at work she felt dizzy and Lightheaded, very SOB the Nurse at her office found her to be tachycardic HR in 105 pt was directed to come to ED Physical Exam (per Admitting): General Appearance: no apparent distress Head: normocephalic, atraumatic Eyes: normal inspection Neck: supple, no JVD Respiratory/Chest: lungs clear, normal breath sounds, no respiratory distress, no accessory muscle use, + pertinent finding ( tenderness on left upper chest wall ) Cardiovascular: regular rate, rhythm, no edema, no JVD Abdomen/GI: normal bowel sounds, non tender, soft Extremities/Musculoskelatal: normal inspection, normal capillary refill, no pedal edema, + calf tenderness (rt side ) Neurologic/Psych: no motor/sensory deficits, alert, normal mood/affect, oriented x 3 Skin: normal color, warm/dry, no rash Hospital Course CHEST PAIN, POSSIBLE PULMONARY EMBOLISM -- presents with pleuritic chest pain with radiation to back associated with SOB /LOPEZ has elevated D Dimer >450 , recent travel hx , rt lower ext DVT seen on Doppler US (see #2) -- can not do a CTA of chest for definitive diagnosis as pt has severe allergic reaction to Contrast dye ( anaphylactic reaction ) VQ scan: low probability of PE MRA chest: 1. The thoracic aorta is normal in caliber. There is no evidence of thoracic aortic dissection as clinically queried. 2. No obvious pulmonary abnormality is identified. Note that the lungs are not well assessed by MRI. 3. The liver is enlarged and there is an indeterminant 1.8 cm T2 hyperintense lesion. This may represent a benign hemangioma but was not clearly seen on the 03/26/[address] scan and cannot be further characterized on this examination. Consider nonemergent follow-up with a contrast-enhanced MRI of the liver for definitive characterization. - discussed with [employer] Fab[employer]ator Dr. Jae Hilton given patient's clinical presentation, elected to treat with anticoagulation, patient was on heparin drip, transitioned to Xarelto main risk factor is recent travel, at least 3 months anticoagulation recommended discussed benefits and risks of Xarelto, patient understands and is agreeable with plan of care Xarelto 15mg po BID x 20 days, then 20mg po daily (patient will need prescription for Xarelto 20mg po daily) - patient requesting for PRN pain medication aside from Tylenol allergy list noted, will prescribe Percocet x 10 tabs she is scheduled to see pain management service next month RIGHT COMMON FEMORAL AND SUPERFICIAL FEMORAL DVT - D dimer > 450 - travelled to [place] last September 27, 2016 then developed right leg pain - Doppler US of Lower Ext: Suspect trace chronic thrombus in the right common femoral and disc superficial femoral veins as above. - discussed with Optical Fab[employer]ator Dr. Jae Hilton given patient's clinical presentation, elected to treat with anticoagulation, patient was on heparin drip, transitioned to Xarelto main risk factor is recent travel, at least 3 months anticoagulation recommended discussed benefits and risks of Xarelto, patient understands and is agreeable with plan of care EKG CHANGE has T wave inversion on Lead II family hx of CAD -Father - acute coronary syndrome ruled out cardiac markers negative echo: -- Conclusions -- * Left ventricular systolic function is normal. * Ejection Fraction = 60-65%. * The left ventricular wall motion is normal. * Pulse wave TDI of the anterior and posterior mitral annulas demonstrates normal LV relaxation * The right ventricle is normal size. * The right ventricular systolic function is normal as assessed by tricuspid annular plane systolic excursion (TAPSE) (normal >1.5 cm). * No significant valvular pathology. 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 -- noted on MRA chest (please refer to #1) -- follow up as outpatient HX OF SVT : s/p Ablation X3 at [place] not on any antiarrhythmic meds -- no episodes noted on telemetry ASTHMA stable PRN albuterol-home med continued DEPRESSION stable cont Celexa ANXIETY DISORDER on Ativan 0.5 mg BID PRN CHRONIC NEUROPATHIC PAIN on Lyrica DISPOSITION : d/c home ff up with PCP in 3-5 days Total time spent on discharge = 45 minutes This includes examination of the patient, discharge planning, medication reconciliation, and communication with other providers. Discharge Instructions Discharge Instructions Admission Admission Date: Oct 19, 2016 at 15:36 Admission Diagnosis: Chest Pain. Discharge Care Plan - Problem: (1) DVT (deep venous thrombosis) Date of VTE Diagnosis: Oct 18, 2016 Time of VTE Diagnosis: 18:21 Care Plan - Goal(s): Diagnostic testing, Therapeutic intervention Care Plan - Instructions: Activity Recommendations: limitations (no heavy exertion until re-evaluated by Primary Care Physician) Recommended Home Diet: Regular Provider Instructions: PLEASE REVIEW YOUR NEW MEDICATION LIST AND FOLLOW INSTRUCTIONS CAREFULLY YOU WILL NEED TO TAKE XARELTO 15 MG TWICE A DAY FOR 19 DAYS, THEN YOU WILL NEED TO TAKE XARELTO 20MG DAILY. PLEASE ASK FOR A PRESCRIPTION FROM YOUR PRIMARY CARE PROVIDER FOR THE XARELTO 20MG PO DAILY. ALWAYS TAKE XARELTO WITH FOOD. NO DRIVING WHILE TAKING PERCOCET. CALL PRIMARY CARE PHYSICIAN OR RETURN TO ER IMMEDIATELY IF WITH RECURRENCE OF SYMPTOMS, BLEEDING, SHORTNESS OF BREATH, LEG PAIN, CHEST PAIN, PALPITATIONS, DIZZINESS , WEAKNESS. GO TO THE ER IMMEDIATELY FOR EVALUATION IF YOU SUSTAIN ANY HEAD TRAUMA. FOLLOW UP WITH YOUR PRIMARY CARE PHYSICIAN IN 1 WEEK. Call your Doctor if you experience any of the following: * Swelling or Pain in your leg * Sudden, continuous pain deep in a muscle * Pain that worsens when you are active or when you stand still for a long time * Chest Pain * Sudden Shortness of Breath * Rapid or pounding heart beat * Fainting * Dizziness * Cough with blood or bloody sputum * Sweating more than normal * Bruises * heavy or uncontrolled bleeding * Blood in your urine, stool or vomit * Black or tarry stools Caring for Your Self at Home: * Avoid sitting, standing or lying down for long periods without moving your legs and feet * When traveling by car, stop to get out and move around at least once every 3 hours * On long airplane, train or bus rides, get up and move around when possible * If you can't get up, wiggle your toes and tighten your calves to keep your blood moving Follow Up: * It is important for you to keep your follow up appointments with your medical provider. VTE Core Measures Inpt VTE Proph given/why not?: Unfractionated heparin SQ Reason no anticoag overlap I/P: Treatment not indicated Reason no anticoag overlap @DC: Treatment not indicated Follow Up Follow-Up: FOLLOW UP WITH PRIMARY CARE PHYSICIAN IN 1 WEEK. Work Instructions Return To Work: after follow-up Laboratory Results Test Results: Lipid Panel Test 10/19/16 03:01 Range/Units Triglycerides Level 183 H 0-150 mg/dl Cholesterol Level 140 0-200 mg/dl HDL Cholesterol 30 mg/dl Cholesterol/HDL Ratio 4.7 LDL Cholesterol, Calculated 73 mg/dl Roshan Werner Recommendations: Call your doctor if: * Temperature above 101 degrees * Pain not relieved by pain medicine ordered * There is increased drainage or redness from any incision * You have any unanswered questions or concerns. Your Doctors Instructions noted above were prepared by provider Tai Orozco.
[2016-10-20 14:55] LABS: BUN/CREATININE RATIO 9.9 (10-20); CALCIUM 8.6 mg/dl (8.5-10.1)
[2016-10-20 14:56] LABS: POTASSIUM 4.4 mmol/L (3.5-5.1)
[2016-10-20 15:43] LABS: CKMB/CK RATIO 1.1 (0-3.0)
[2016-10-20] MEDS: LEVALBUTEROL 0.63MG/3 ML NEB INH SCH ×2 (15:48→18:53)
[2016-10-20] MEDS ORDERED: NURSING VERBAL MED ORDER ONE (17:00)
[2016-10-20] MEDS ORDERED: ALUMINUM/MAGNESIUM SUSP 30 ML UDC PO ONE (19:49)
[2016-10-20] MEDS ORDERED: ALUMINUM/MAGNESIUM SUSP 30 ML UDC PO PRN (20:00)
[2016-10-21] VITALS (7 sets, daily range): BP systolic 102–115; BP diastolic 69–81; PULSE 68–85; TEMP 36.4–36.7; O2SAT 97–100
[2016-10-21] MEDS: LEVALBUTEROL 0.63MG/3 ML NEB INH SCH ×3 (01:40→13:37)
[2016-10-21 03:31] LABS: CKMB/CK RATIO 1.2 (0-3.0)
[2016-10-21] MEDS: LEVOTHYROXINE 137 MCG TAB PO SCH (05:59)
[2016-10-21 06:17] LABS: HEMATOCRIT 39.3 % (37-47); MEAN CELL VOLUME 86.6 fL (80-100); MEAN CORPUSCULAR HEMOGLOBIN 29.5 pg (25-34); MEAN CORPUSCULAR HGB CONC 34.1 g/dl (32-36); MEAN PLATELET VOLUME 9.3 fL (7.4-10.4); PLATELET COUNT 281 K/uL (130-400); RED BLOOD COUNT 4.54 M/uL (4.2-5.4); WHITE BLOOD COUNT 6.41 K/uL (4.8-10.8)
[2016-10-21 06:26] LABS: PARTIAL THROMBOPLASTIN RATIO 1.3
[2016-10-21] MEDS: RIVAROXABAN TAB 15 MG TAB PO SCH (08:02)
[2016-10-21] MEDS: CITALOPRAM 20 MG TAB PO SCH (08:02)
[2016-10-21] MEDS: OXYCODONE/ACETAMINOPHEN 5-325 TAB PO PRN ×2 (08:02→13:03)
[2016-10-21] MEDS: ONDANSETRON INJ 2 MG/ML 2 ML VIAL IV PRN (08:02)
[2016-10-21] MEDS: PREGABALIN 25MG CAP PO SCH (08:10)
--- NOTE | 2016-10-21 14:44 | Progress Note ---
Medicine Progress Note Date & Time of Visit: Oct 21, 2016 at 14:37. Subjective yesterday, patient walked in the halls, o2 sats remained at 97 but patient was reporting chest heaviness, moderate no wheezing ekg unchanged, cardiac markers x 3 negative given nebs q6h feels better today, in good spirits walked in the halls, o2 sats 98%, no shortness of breath/chest pain/chest heaviness chest pain and leg pain improved no bleeding states she is ready and would like to be discharged today denies other symptoms Objective Last 8 Hrs Date Time Temp Pulse Resp B/P (MAP) Pulse Ox O2 Delivery O2 Flow Rate FiO2 10/21/16 12:00 100 Room Air 10/21/16 11:36 36.4 70 18 102/69 (80) 100 Room Air 10/21/16 08:00 99 Room Air 10/21/16 07:41 36.6 85 18 114/81 (92) 99 Room Air 10/21/16 07:00 68 12 97 Room Air Physical Exam: General- oriented x 3, not in distress, speaks in sentences with no effort Lungs- clear breath sounds BL Heart- regular rhythm; no murmur, normal rate Abdomen- normal bowel sounds, soft, nontender Extremities- no pretibial edema, no calf tenderness Neuro- alert, oriented x 3; no gross focal deficits Skin- warm & dry Laboratory Results: Last 24 Hours Test 10/20/16 15:04 10/20/16 20:46 10/21/16 02:56 10/21/16 05:59 Total Creatine Kinase 57 U/L 60 U/L 59 U/L Creatine Kinase MB 0.6 ng/ml 0.6 ng/ml 0.7 ng/ml Creatine Kinase MB Ratio 1.1 1.0 1.2 Troponin I < 0.015 ng/ml < 0.015 ng/ml < 0.015 ng/ml White Blood Count 6.41 K/uL Red Blood Count 4.54 M/uL Hemoglobin 13.4 g/dL Hematocrit 39.3 % Mean Corpuscular Volume 86.6 fL Mean Corpuscular Hemoglobin 29.5 pg Mean Corpuscular Hemoglobin Concent 34.1 g/dl RDW Standard Deviation 40.0 fL RDW Coefficient of Variation 12.5 % Platelet Count 281 K/uL Mean Platelet Volume 9.3 fL Activated Partial Thromboplast Time 33.6 SECONDS Partial Thromboplastin Ratio 1.3 Assessment & Plan CHEST PAIN, POSSIBLE PULMONARY EMBOLISM presents with pleuritic chest pain with radiation to back associated with SOB /LOPEZ has elevated D Dimer >450 , recent travel hx , rt lower ext DVT seen on Doppler US (see #2) -- can not do a CTA of chest for definitive diagnosis as pt has severe allergic reaction to Contrast dye ( anaphylactic reaction ) VQ scan: low probability of PE MRA chest: 1. The thoracic aorta is normal in caliber. There is no evidence of thoracic aortic dissection as clinically queried. 2. No obvious pulmonary abnormality is identified. Note that the lungs are not well assessed by MRI. 3. The liver is enlarged and there is an indeterminant 1.8 cm T2 hyperintense lesion. This may represent a benign hemangioma but was not clearly seen on the 03/26/[address] scan and cannot be further characterized on this examination. Consider nonemergent follow-up with a contrast-enhanced MRI of the liver for definitive characterization. - discussed with Extrusion Die Repairer Dr. Jae Hilton given patient's clinical presentation, elected to treat with anticoagulation, patient was on heparin drip, transitioned to Xarelto main risk factor is recent travel, at least 3 months anticoagulation recommended discussed benefits and risks of Xarelto, patient understands and is agreeable with plan of care Xarelto 15mg po BID x 19 days, then 20mg po daily (patient will need prescription for Xarelto 20mg po daily) - patient requesting for PRN pain medication aside from Tylenol allergy list noted, will prescribe Percocet x 10 tabs she is scheduled to see pain management service next month RIGHT COMMON FEMORAL AND SUPERFICIAL FEMORAL DVT - D dimer > 450 - travelled to [place] last September 27, 2016 then developed right leg pain - Doppler US of Lower Ext: Suspect trace chronic thrombus in the right common femoral and disc superficial femoral veins as above. - discussed with Extrusion Die Repairer Dr. Jae Hilton given patient's clinical presentation, elected to treat with anticoagulation, patient was on heparin drip, transitioned to Xarelto main risk factor is recent travel, at least 3 months anticoagulation recommended discussed benefits and risks of Xarelto, patient understands and is agreeable with plan of care EKG CHANGE has T wave inversion on Lead II family hx of CAD -Father - acute coronary syndrome ruled out cardiac markers negative echo: -- Conclusions -- * Left ventricular systolic function is normal. * Ejection Fraction = 60-65%. * The left ventricular wall motion is normal. * Pulse wave TDI of the anterior and posterior mitral annulas demonstrates normal LV relaxation * The right ventricle is normal size. * The right ventricular systolic function is normal as assessed by tricuspid annular plane systolic excursion (TAPSE) (normal >1.5 cm). * No significant valvular pathology. 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 -- noted on MRA chest (please refer to #1) -- follow up as outpatient HX OF SVT : s/p Ablation X3 at [place] not on any antiarrhythmic meds -- no episodes noted on telemetry ASTHMA stable PRN albuterol-home med continued DEPRESSION stable cont Celexa ANXIETY DISORDER on Ativan 0.5 mg BID PRN CHRONIC NEUROPATHIC PAIN on Lyrica DISPOSITION : d/c home ff up with PCP in 3-5 days Procedures: LUNG IMAGING VQ HISTORY: Atypical CHEST PAIN ELEVATED D DIMER /CONTRAST ALLERGY SEVERE TECHNIQUE: Immediately following the inhalation of 33 mCi of technetium 99 M DTPA and the intravenous injection of 5.4 mCi of technetium 99 M MAA, ventilation and perfusion scans were performed. Anterior, posterior, oblique, and lateral views of the chest were obtained for both scans. COMPARISON STUDY: Chest 10/18/2016. FINDINGS: There are no segmental or mismatched defects identified within the lungs. Cardiac silhouette is mildly enlarged. IMPRESSION: Above findings are consistent with a very low probability scan. Electronically signed by: Lauri Thompson M.D. 10/19/2016 11:17 AM MR ANGIOGRAM OF THE CHEST COMBO CLINICAL HISTORY: Atypical chest pain. Dizziness. Back pain. Clinical concern for dissection. COMPARISON STUDY: Chest x-ray dated 10/18/2016. Abdominal CT dated 03/26/2016. TECHNIQUE: MR angiogram of the chest is performed utilizing unenhanced axial, sagittal, and coronal FIESTA sequences. Postcontrast sagittal images are acquired following the IV administration of 10 cc of Gadavist. 3-D reformats are created and assessed. FINDINGS: The thoracic aorta is normal in caliber and demonstrates bovine variant arch anatomy. There is no dissection seen. The arch vessels are widely patent. The heart is normal in size and without pericardial effusion. The lung parenchyma is clear as imaged although not well assessed by MRI. There is no evidence of mediastinal, hilar, or axillary lymphadenopathy. The liver is enlarged measuring 22 cm in length. There is an indeterminant T2 hyperintense lesion in the right lobe which measures 1.8 cm. A subcentimeter cyst is noted in the left kidney. The gallbladder is surgically absent. The partially visualized upper abdominal viscera is otherwise grossly normal but incompletely assessed. No bony abnormality is identified. IMPRESSION: 1. The thoracic aorta is normal in caliber. There is no evidence of thoracic aortic dissection as clinically queried. 2. No obvious pulmonary abnormality is identified. Note that the lungs are not well assessed by MRI. 3. The liver is enlarged and there is an indeterminant 1.8 cm T2 hyperintense lesion. This may represent a benign hemangioma but was not clearly seen on the 03/26/[address] scan and cannot be further characterized on this examination. Consider nonemergent follow-up with a contrast-enhanced MRI of the liver for definitive characterization. Electronically signed by: Willem March M.D. 10/19/2016 4:32 PM ULTRASOUND BILATERAL LOWER EXTREMITY VENOUS CLINICAL HISTORY: Atypical chest pain. Dyspnea. Leg swelling. COMPARISON STUDY: No priors. TECHNIQUE: Real-time, grayscale, and color Doppler sonography of the deep veins of the right and left lower extremity was performed from the inguinal crease to the calf. Compression and augmentation were utilized. The examination is degraded by large body habitus. FINDINGS: Right lower extremity: There is minimal stranding identified within the right common femoral vein and within the distal aspect of the right superficial femoral vein. This likely represents trace chronic thrombus. There is no sonographic evidence of acute deep venous thrombosis identified in the right lower extremity. The common femoral, superficial femoral, and popliteal veins are patent and normally compressible. The greater saphenous vein and the profunda femoris vein at the junction with the common femoral vein are clear. The visualized calf veins are patent. Left lower extremity: There is no sonographic evidence of deep venous thrombosis identified in the left lower extremity. The common femoral, superficial femoral, and popliteal veins are patent and normally compressible. The greater saphenous vein and the profunda femoris vein at the junction with the common femoral vein are clear. The visualized calf veins are patent. IMPRESSION: 1. Suspect trace chronic thrombus in the right common femoral and disc superficial femoral veins as above. 2. There is no sonographic evidence of acute deep venous thrombosis identified in the right or left lower extremity. Current Inpatient Medications: Current Inpatient Medications Medications (Trade) Dose Ordered Sig/Babar Route Start Time Stop Time Status Last Admin Dose Admin Acetaminophen (Tylenol Tab) 650 mg Q4H PRN PO 10/18/16 19:30 11/17/16 19:29 Al Hydrox/Mg Hydrox/Simethicone (Maalox Max Susp) 15 ml Q4H PRN PO 10/18/16 19:30 11/17/16 19:29 Magnesium Hydroxide (Milk Of Magnesia Susp) 30 ml Q12H PRN PO 10/18/16 19:30 11/17/16 19:29 Zolpidem Tartrate (Ambien Tab) 5 mg HSZ PRN PO 10/18/16 19:30 11/17/16 19:29 Ondansetron HCl (Zofran Inj) 4 mg Q6H PRN IV 10/18/16 19:30 11/17/16 19:29 10/21/16 08:02 4 MG Nitroglycerin (Nitrostat Tab) 0.4 mg UD PRN SL 10/18/16 19:30 11/17/16 19:29 Polyethylene (Miralax Powder Packet) 17 gm DAILY PRN PO 10/18/16 19:30 11/17/16 19:29 Albuterol (Ventolin Hfa Inhaler) 2 puffs QID PRN INH 10/18/16 19:30 11/17/16 19:29 Citalopram Hydrobromide (celeXA TAB) 20 mg QAM PO 10/19/16 09:00 11/18/16 08:59 10/21/16 08:02 20 MG Epinephrine (Epipen) 0.3 mg UD PRN IM 10/18/16 19:30 11/17/16 19:29 Levothyroxine Sodium (Synthroid Tab) 137 mcg DAILYBB PO 10/19/16 06:00 11/18/16 05:59 10/21/16 05:59 137 MCG Lorazepam (Ativan Tab) 0.5 mg BID PRN PO 10/18/16 19:30 11/17/16 19:29 10/20/16 23:15 0.5 MG Pregabalin (Lyrica Cap) 25 mg BID PO 10/18/16 21:00 11/17/16 20:59 10/21/16 08:10 25 MG Oxycodone/ Acetaminophen (Percocet 5-325mg Tab) 1 tab Q4H PRN PO 10/18/16 20:00 11/01/16 19:59 10/21/16 13:03 1 TAB Oxycodone/ Acetaminophen (Percocet 5-325mg Tab) 2 tab Q4H PRN PO 10/18/16 20:00 11/01/16 19:59 10/20/16 16:57 2 TAB Miscellaneous (Iv Fluids Completed) 1 ea PRN PRN N/A 10/18/16 20:45 10/18/17 20:44 Lorazepam (Ativan Tab) 0.5 mg ONE PRN PO 10/19/16 14:30 11/18/16 14:29 Gadobutrol (Gadavist) 10 mmol UD PRN IV 10/19/16 16:30 10/23/16 16:29 Rivaroxaban (Xarelto Tab) 15 mg BID PO 10/19/16 21:00 11/09/16 20:59 10/21/16 08:02 15 MG Levalbuterol (Xopenex 0.63 Mg/ 3 Ml Neb) 0.63 mg Q6R INH 10/20/16 15:00 11/19/16 14:59 10/21/16 06:55 0.63 MG Al Hydroxide/Mg Hydroxide (Maalox Susp) 30 ml Q6H PRN PO 10/20/16 20:00 11/19/16 19:59
[2016-10-21] MEDS ORDERED: XRL15 PO (14:46)
[2016-10-21] MEDS ORDERED: VNTHFA/IN INH (14:47)
[2016-10-21] MEDS ORDERED: RIVAROXABAN TAB 15 MG TAB PO SCH (15:00)
== END 2016-10-21 15:18 | disposition home or self-care (01) | DRG 176 ==
LOC: C.EDB 14:31 → C.2T 19:25 → ENRESERV 19:55 → OBSVTOIN 10-19 15:36
PROVIDERS: ADMIT Hospitalist; ATTEND Internal Medicine
DX: I26.99 Other pulmonary embolism without acute cor pulmonale (principal); I82.511 Chronic embolism and thrombosis of right femoral vein; R94.31 Abnormal electrocardiogram [ECG] [EKG]; R16.0 Hepatomegaly, not elsewhere classified; D18.03 Hemangioma of intra-abdominal structures; J45.909 Unspecified asthma, uncomplicated; F32.9 Major depressive disorder, single episode, unspecified; F41.9 Anxiety disorder, unspecified; G62.9 Polyneuropathy, unspecified; Z86.79 Personal history of other diseases of the circulatory system; Z79.899 Other long term (current) drug therapy; Z91.041 Radiographic dye allergy status; Z88.1 Allergy status to other antibiotic agents; Z88.2 Allergy status to sulfonamides; Z88.5 Allergy status to narcotic agent; Z82.49 Family history of ischemic heart disease and other diseases of the circulatory system; Z83.3 Family history of diabetes mellitus; Z84.1 Family history of disorders of kidney and ureter

== ENCOUNTER 2016-10-24 16:37 | Emergency (ER) | payer OTHER ==
[~2016-10-24 16:37] MED LIST changes: +ACET-1256 PO; -AMT50 PO; +ATV5X PO; +CLX/20 PO; +EPP3/2 IM; +OXYC-57 PO; +PREG1CAP36 PO; +SYN137 PO; -TGRSR100 PO; +VNTHFA/IN INH; +XRL15 PO
[2016-10-24 16:48] VITALS: TEMP 36.8; Ht 167.6 cm
[2016-10-24] MEDS ORDERED: SODIUM CHLORIDE 0.9% 1000ML 1,000 ML IV STA (17:04)
--- NOTE | 2016-10-24 17:09 | EMERGENCY ROOM VISIT NOTE ---
History Report prepared by Geremias: Jerad Morse Under the Supervision of: Dr. Raimundo Mathews M.D. First contact with patient: 16:50 Chief Complaint: REFERRED BY DOCTOR Stated Complaint: PE, SOB, CHEST PAIN, DIZZY, PRESSURE IN CHEST History of Present Illness The patient is a 41 year old female who presents to the Emergency Room with complaints of worsening chest pressure and shortness of breath beginning yesterday. The patient states that she was discharged from the hospital a few days ago from a PE. She reports that since she was discharged, she has not been feeling right. The patent notes that she went back to work yesterday, and she worked for 10.5 hours. She states that she has been fatigued, short of breath, and experiencing chest pressure. The patient reports that today, her pressure increased to pain that stretches from her upper chest, to under her right breast. She notes that she has been dizzy and her hands were cold. She denies tingling to her hands and feet. The patient states that she has had anxiety before, and this is not anxiety. She reports that she took her medication, and it did not help her symptoms. The patient notes that she has not missed a dose of Xarelto. She states that she called her PCP and was told to go to the ED because it could be symptoms of her PE. Source of History: patient Onset: yesterday Position: chest Quality: pressure, other (SOB) Timing: worsening Associated Symptoms: + chest pain, + fatigue Note: Associated symptoms: dizziness and cold hands Denies: tingling to her feet and hands Review of Systems See HPI for pertinent positives & negatives. A total of 10 systems reviewed and were otherwise negative. Past Medical & Surgical Medical Problems: (1) Asthma (2) Chest pain (3) DVT (deep venous thrombosis) (4) Hypothyroid (5) Spinal injury Family History Cancer Diabetes mellitus Hypertension Kidney disease Social History Smoking Status: Never Smoker Alcohol Use: occasionally Drug Use: none Marital Status: single Housing Status: lives alone Occupation Status: employed Current/Historical Medications Scheduled Citalopram (Citalopram Hydrobromide), 20 MG PO QAM Levothyroxine Sodium (Levothyroxine Sodium), 137 MCG PO QAM Pregabalin (Lyrica), 25 MG PO BID Rivaroxaban (Xarelto), 15 MG PO BID Scheduled PRN Acetaminophen (Tylenol), 1,000 MG PO Q8 PRN for Pain Albuterol Hfa (Ventolin Hfa), 2 PUFFS INH QID PRN for Asthma Symptoms Epinephrine (Epipen), 0.3 MG IM UD PRN for ALLERGIC REACTION Lorazepam (Lorazepam), 0.5 MG PO BID PRN for Anxiety Oxycodone/Acetaminophen 5MG/325MG (Percocet 5MG/325MG), 1 TAB PO Q4H PRN for severe pain Allergies Coded Allergies: Clindamycin (Verified Allergy, Severe, RED FACE, WHEEZING, 10/24/16) Hydrocodone (Verified Allergy, Severe, RED FACE, WHEEZING, 10/24/16) Iodinated Diagnostic Agents (Verified Allergy, Severe, anaphylactic, ) Tramadol (Verified Allergy, Severe, RED FACE, WHEEZING, 10/24/16) Metaxalone (Verified Allergy, Intermediate, flushed, red, wheezy, nauseous., 10/24/16) Sulfa Antibiotics (Verified Allergy, Intermediate, red face, wheezing, ) Codeine (Verified Allergy, Mild, WHEEZING, 10/24/16) Shellfish (Verified Allergy, Mild, ., 10/24/16) Eucalyptus Oil (Verified Adverse Reaction, Intermediate, skin pedro, gets red., 10/24/16) Ketorolac Tromethamine (Verified Adverse Reaction, Intermediate, RED FACE , 10/24/16) Metoclopramide (Verified Adverse Reaction, Intermediate, INCREASED HEART RATE, 10/24/16) ONLY IV Fentanyl (Verified Adverse Reaction, Unknown, HOT/SICK, 10/24/16) Physical Exam Vital Signs Date Time Temp Pulse Resp B/P (MAP) Pulse Ox O2 Delivery O2 Flow Rate FiO2 10/24/16 18:34 79 20 145/93 100 Room Air 10/24/16 17:49 75 22 138/95 97 Room Air 74 133/109 84 148/98 10/24/16 17:23 97 Room Air 10/24/16 17:16 83 10/24/16 16:48 36.8 68 22 136/92 94 Room Air Physical Exam GENERAL: Patient is a healthy-appearing well-nourished 41 year old female HEAD: Normocephalic atraumatic EYES: Ocular movements intact pupils equal and react to light OROPHARYNX mucous membranes are moist no exudates present no erythema or edema present NECK: Supple no nuchal rigidity CHEST: Good equal expansion. Tender to palpation. LUNGS: Clear and equal to auscultation CARDIAC: Normal S1 and S2 ABDOMEN: Soft nontender no guarding BACK: No CVA tenderness EXTREMITIES: No pain upon palpation normal muscle strength in all groups no clubbing cyanosis or edema NEURO: Patient is following commands and answering questions appropriately. Alert and oriented x3 Cranial Nerves 2-12 grossly intact Medical Decision & Procedures ER Provider Diagnostic Interpretation: X-ray results as stated below per interpretation by me and the radiologist: CHEST ONE VIEW PORTABLE CLINICAL HISTORY: Shortness of breath, dizziness, chest pressure. COMPARISON STUDY: 10/18/2016 FINDINGS: The heart is at the upper limits of normal in size. There is no failure. There is no focal pulmonary consolidation. There are no pleural effusions. IMPRESSION: No active disease in the chest. Electronically signed by: Keyshawn Toure M.D. 10/24/2016 5:30 PM Dictated Date/Time: 10/24/2016 5:30 PM Laboratory Results 10/24/16 17:05 Red Blood Count 4.95, Mean Corpuscular Volume 85.7, Mean Corpuscular Hemoglobin 29.1, Mean Corpuscular Hemoglobin Concent 34.0, Mean Platelet Volume 9.5, Neutrophils (%) (Auto) 58.5, Lymphocytes (%) (Auto) 24.8, Monocytes (%) (Auto) 10.4, Eosinophils (%) (Auto) 4.9, Basophils (%) (Auto) 0.6, Neutrophils # (Auto ) 5.01, Lymphocytes # (Auto) 2.12, Monocytes # (Auto) 0.89, Eosinophils # (Auto ) 0.42, Basophils # (Auto) 0.05 10/24/16 17:05 Test 10/24/16 17:05 10/24/16 17:55 10/24/16 18:20 White Blood Count 8.56 K/uL (4.8-10.8) Red Blood Count 4.95 M/uL (4.2-5.4) Hemoglobin 14.4 g/dL (12.0-16.0) Hematocrit 42.4 % (37-47) Mean Corpuscular Volume 85.7 fL (80-100) Mean Corpuscular Hemoglobin 29.1 pg (25-34) Mean Corpuscular Hemoglobin Concent 34.0 g/dl (32-36) Platelet Count 337 K/uL (130-400) Mean Platelet Volume 9.5 fL (7.4-10.4) Neutrophils (%) (Auto) 58.5 % Lymphocytes (%) (Auto) 24.8 % Monocytes (%) (Auto) 10.4 % Eosinophils (%) (Auto) 4.9 % Basophils (%) (Auto) 0.6 % Neutrophils # (Auto) 5.01 K/uL (1.4-6.5) Lymphocytes # (Auto) 2.12 K/uL (1.2-3.4) Monocytes # (Auto) 0.89 K/uL (0.11-0.59) Eosinophils # (Auto) 0.42 K/uL (0-0.5) Basophils # (Auto) 0.05 K/uL (0-0.2) RDW Standard Deviation 39.6 fL (36.4-46.3) RDW Coefficient of Variation 12.8 % (11.5-14.5) Immature Granulocyte % (Auto) 0.8 % Immature Granulocyte # (Auto) 0.07 K/uL (0.00-0.02) Red Blood Cell Morphology Unremarkable Anion Gap 8.0 mmol/L (3-11) Estimated GFR () 89.0 Estimated GFR (Non- 76.8 BUN/Creatinine Ratio 13.5 (10-20) Calcium Level 9.4 mg/dl (8.5-10.1) Total Bilirubin 0.2 mg/dl (0.2-1) Direct Bilirubin < 0.1 mg/dl (0-0.2) Aspartate Amino Transf (AST/SGOT) 21 U/L (15-37) Alanine Aminotransferase (ALT/SGPT) 51 U/L (12-78) Alkaline Phosphatase 88 U/L (45-117) Total Creatine Kinase 60 U/L (26-192) Creatine Kinase MB < 0.5 ng/ml (0.5-3.6) Creatine Kinase MB Ratio (0-3.0) Troponin I < 0.015 ng/ml (0-0.045) Total Protein 7.4 gm/dl (6.4-8.2) Albumin 3.6 gm/dl (3.4-5.0) Thyroid Stimulating Hormone (TSH) 2.190 uIu/ml (0.300-4.500) Urine Color YELLOW Urine Appearance CLEAR (CLEAR) Urine pH 6.0 (4.5-7.5) Urine Specific [place] 1.013 (1.000-1.030) Urine Protein NEG (NEG) Urine Glucose (UA) NEG (NEG) Urine Ketones NEG (NEG) Urine Occult Blood NEG (NEG) Urine Nitrite NEG (NEG) Urine Bilirubin NEG (NEG) Urine Urobilinogen NEG (NEG) Urine Leukocyte Esterase NEG (NEG) Bedside Glucose 62 mg/dl (70-90) Labs reviewed by ED physician. Medications Administered Medications (Trade) Dose Ordered Sig/Babar Route Start Time Stop Time Status Last Admin Dose Admin Sodium Chloride 1,000 ml @ 999 mls/hr Q1H1M STAT IV 10/24/16 17:04 10/24/16 18:04 DC 10/24/16 17:41 999 MLS/HR ECG Indication: chest pain Rate (beats per minute): 78 Rhythm: normal sinus Findings: no acute ischemic change, no ectopy ED Course 165: Past medical records reviewed. The patient was evaluated in room B12B. A complete history and physical examination was performed. 1704: Ordered Sodium Chloride 1000 ml @ 999 mls/hr IV 1756: I reevaluated the patient and discussed her exam findings with her. I discussed discharge instructions with her and the treatment plan. She verbalized complete agreement. The patient is ready for discharge. 180: The nurse informed me the patient states she is going to [place] for a second opinion. The patient reports that I am psycho because I told her she does not have a PE after reviewing her records. 1803: I reevaluated the patient and asked if she was aware of her records. She reports that she is, and the hospitalist told her she had a PE. I offered to go over her records with her, but she denied. I told her she may go to [place], where she lives, for a second opinion if she would like. Medical Decision Differential diagnosis: Etiologies such as infections, reactive airway disease, pneumonia, pneumothorax , COPD, CHF, cardiac ischemia, pulmonary embolism, musculoskeletal, gastrointestinal, as well as others were entertained. This is a 41-year-old female who is on the "no narcotics treatment plan" presents emergency department because she feels she is having a PE. The patient was recently admitted to the hospital and per the patient was recently diagnosed with a PE. The patient has been on Xarelto and has not missed any of her doses. I expressed to the patient upon arrival to the emergency department I felt that she most likely was hyperventilating. In addition I will note that the patient is not tachycardic upon arrival and is not hypoxic. She is also not hypotensive. I did state to the patient however that I would work her up. She has a normal EKG normal laboratory work. I reviewed the patient's VQ perfusion scan as well as her MRI of her chest as well as her duplex of her right lower extremity. I will note that the patient has no acute thrombus on any of these studies. I explained to the patient is and that she was placed on Xarelto because she has a chronic thrombus and she had recently been on a trip. Based on these findings along with the exceedingly low probability that the patient now has a PE I feel she can be safely discharged home. The patient was not happy with this assessment and told me I did not know what I was talking about. I then offered to repeat all the patient studies to the patient along with her discharge summary however the patient in the room refused to this and to me even read her studies. At this point she requested a different doctor. There is no other doctor that is willing to see this patient. She meets absolutely no admission criteria. The patient stated that she was going to go to [place] which I will note is where the patient lives. [place] Drug Monitoring Program Search Results: patient reviewed within database, see additional documentation Drug Monitoring Findings: The patient received 10 Percocet and 60 Lyrica three days ago. Impression Primary Impression: Dyspnea Additional Impression: Malingering Scribe Attestation The scribe's documentation has been prepared under my direction and personally reviewed by me in its entirety. I confirm that the note above accurately reflects all work, treatment, procedures, and medical decision making performed by me. Departure Information Dispostion Home / Self-Care Referrals Rachelle Calles D.O. (PCP) Jae Hilton M.D. Forms HOME CARE DOCUMENTATION FORM, IMPORTANT VISIT INFORMATION, WORK / SCHOOL INSTRUCTIONS Patient Instructions ED Dyspnea Shortness of Breath, My [facility] Additional Instructions Follow up with Dr Hilton's office You have been examined and treated today on an emergency basis only. This is not a substitute for, or an effort to provide, complete comprehensive medical care. It is impossible to recognize and treat all injuries or illnesses in a single emergency department visit. It is therefore important that you follow up closely with Dr Calles. Call as soon as possible for an appointment. Thank you for your time and consideration. I look forward to speaking with you again soon. Please don't hesitate to call us if you have any questions. Problem Qualifiers Primary Impression: Dyspnea Dyspnea type: unspecified Qualified Codes: R06.00 - Dyspnea, unspecified
[2016-10-24 17:21] LABS: HEMATOCRIT 42.4 % (37-47); MEAN CELL VOLUME 85.7 fL (80-100); MEAN CORPUSCULAR HEMOGLOBIN 29.1 pg (25-34); MEAN PLATELET VOLUME 9.5 fL (7.4-10.4); PLATELET COUNT 337 K/uL (130-400); RED BLOOD COUNT 4.95 M/uL (4.2-5.4); WHITE BLOOD COUNT 8.56 K/uL (4.8-10.8)
[2016-10-24 17:23] VITALS: O2SAT 97
--- NOTE | 2016-10-24 17:32 | DIAGNOSTIC IMAGING REPORT ---
CHEST ONE VIEW PORTABLE CLINICAL HISTORY: Shortness of breath, dizziness, chest pressure. COMPARISON STUDY: 10/18/2016 FINDINGS: The heart is at the upper limits of normal in size. There is no failure. There is no focal pulmonary consolidation. There are no pleural effusions.[ IMPRESSION: No active disease in the chest. Electronically signed by: Keyshawn Toure M.D. 10/24/2016 5:30 PM Dictated Date/Time: 10/24/2016 5:30 PM
[2016-10-24 17:40] LABS: ALT/SGPT 51 U/L (12-78); BLOOD UREA NITROGEN 12 mg/dl (7-18); BUN/CREATININE RATIO 13.5 (10-20); CALCIUM 9.4 mg/dl (8.5-10.1); CARBON DIOXIDE 25 mmol/L (21-32); CHLORIDE 104 mmol/L (98-107); CREATININE 0.92 mg/dl (0.60-1.20); GLUCOSE 89 mg/dl (70-99); POTASSIUM 3.9 mmol/L (3.5-5.1); SODIUM 137 mmol/L (136-145)
[2016-10-24 17:47] LABS: BASO % 0.6 %; BASO ABS # 0.05 K/uL (0-0.2); COMPLETE YES; EOS % 4.9 %; IG% 0.8 %; LYMPH % 24.8 %; LYMPH ABS # 2.12 K/uL (1.2-3.4); MONO % 10.4 %; NEUT % 58.5 %
[2016-10-24 17:51] LABS: ALKALINE PHOSPHATASE 88 U/L (45-117); AST/SGOT 21 U/L (15-37)
[2016-10-24 18:21] LABS: URINE APPEARANCE CLEAR (CLEAR); URINE BILIRUBIN NEG (NEG); URINE COLOR YELLOW; URINE NITRITE NEG (NEG); URINE SPECIFIC GRAVITY 1.013 (1.000-1.030); UROBILINOGEN NEG (NEG)
[2016-10-24 18:22] LABS: MANUAL MICROSCOPIC REQUIRED? NO; REVIEW REQ? NO
[2016-10-24 18:34] VITALS: BP 145/93; PULSE 79; O2SAT 100
== END 2016-10-24 18:41 | disposition home or self-care (01) ==
LOC: C.EDB 16:39
DX: R06.00 Dyspnea, unspecified (principal); Z76.5 Malingerer [conscious simulation]; J45.909 Unspecified asthma, uncomplicated; Z86.718 Personal history of other venous thrombosis and embolism; Z86.711 Personal history of pulmonary embolism; E03.9 Hypothyroidism, unspecified; Z80.9 Family history of malignant neoplasm, unspecified; Z83.3 Family history of diabetes mellitus; Z82.49 Family history of ischemic heart disease and other diseases of the circulatory system; Z84.1 Family history of disorders of kidney and ureter; Z79.01 Long term (current) use of anticoagulants; Z79.899 Other long term (current) drug therapy

== ENCOUNTER → 2016-12-12 | Outpatient (CLI) | payer OTHER ==
--- NOTE | 2016-12-12 08:04 | DIAGNOSTIC IMAGING REPORT ---
LEFT ANKLE 3 VIEWS CLINICAL HISTORY: Left ankle pain. FINDINGS: 3 views of the left ankle are obtained. No prior studies are available for comparison at the time of dictation. The skeletal structures are well mineralized. No fracture is seen. The ankle mortise is intact. There is a large plantar calcaneal enthesophyte. An ankle joint effusion is identified. Mild soft tissue swelling is noted. IMPRESSION: 1. Mild soft tissue swelling and joint effusion. No left ankle fracture is seen. 2. Large plantar heel spur. Electronically signed by: Willem March M.D. 12/12/2016 8:02 AM Dictated Date/Time: 12/12/2016 8:01 AM
== END | disposition home or self-care (01) ==
LOC: C.RDSM 16:52
PROVIDERS: ATTEND Physician Assistant
DX: M25.572 Pain in left ankle and joints of left foot (principal); M77.32 Calcaneal spur, left foot

== ENCOUNTER 2017-05-15 16:48 | Emergency (ER) | payer OTHER ==
[~2017-05-15] VITALS: Ht 167.6 cm; Wt 107.2 kg
[~2017-05-15 16:48] MED LIST changes: -ACET-1256 PO; -ATV5X PO; -CLX/20 PO; -EPP3/2 IM; -OXYC-57 PO; -SYN137 PO; -XRL15 PO
[2017-05-15 16:52] VITALS: Ht 167.6 cm; Wt 107.2 kg
[2017-05-15] MEDS ORDERED: GI COCKTAIL PO STA (17:12)
[2017-05-15] MEDS ORDERED: ACETAMINOPHEN 500 MG TAB PO STA (17:19)
[2017-05-15] MEDS ORDERED: LIDOCAINE HCL 2% VISC SOLN 20 ML UDC ONE (17:26)
[2017-05-15] MEDS ORDERED: ALUMINUM/MAGNESIUM SUSP 30 ML UDC ONE (17:26)
[2017-05-15 17:32] LABS: BASO % 0.4 %; BASO ABS # 0.03 K/uL (0-0.2); EOS % 4.1 %; EOS ABS # 0.34 K/uL (0-0.5); HEMOGLOBIN 13.9 g/dL (12.0-16.0); IG# 0.04 K/uL (0.00-0.02); LYMPH % 23.7 %; LYMPH ABS # 1.98 K/uL (1.2-3.4); MEAN CELL VOLUME 85.2 fL (80-100); MEAN CORPUSCULAR HEMOGLOBIN 28.2 pg (25-34); MEAN CORPUSCULAR HGB CONC 33.1 g/dl (32-36); MEAN PLATELET VOLUME 9.5 fL (7.4-10.4); MONO ABS # 0.84 K/uL (0.11-0.59); NEUT % 61.3 %; NEUT ABS # 5.13 K/uL (1.4-6.5); PLATELET COUNT 299 K/uL (130-400); RED CELL DISTRIBUTION WIDTH CV 13.4 % (11.5-14.5); RED CELL DISTRIBUTION WIDTH SD 41.4 fL (36.4-46.3); WHITE BLOOD COUNT 8.36 K/uL (4.8-10.8)
[2017-05-15] MEDS ORDERED: MELO-84 PO (17:41)
[2017-05-15] MEDS ORDERED: VNTHFA/IN INH (17:41)
[2017-05-15 17:51] LABS: ALBUMIN 3.4 gm/dl (3.4-5.0); ALT/SGPT 30 U/L (12-78); AST/SGOT 11 U/L (15-37); BLOOD UREA NITROGEN 15 mg/dl (7-18); CALCIUM 9.1 mg/dl (8.5-10.1); CARBON DIOXIDE 23 mmol/L (21-32); CREATININE 1.02 mg/dl (0.60-1.20); GLUCOSE 104 mg/dl (70-99); LIPASE 232 U/L (73-393); POTASSIUM 4.3 mmol/L (3.5-5.1); SODIUM 139 mmol/L (136-145)
[2017-05-15 17:53] LABS: ALKALINE PHOSPHATASE 100 U/L (45-117); TOTAL PROTEIN 7.2 gm/dl (6.4-8.2)
--- NOTE | 2017-05-15 18:11 | DIAGNOSTIC IMAGING REPORT ---
CT SCAN OF THE ABDOMEN AND PELVIS WITHOUT CONTRAST CLINICAL HISTORY: Generalized abdominal pain, vomiting, nausea COMPARISON STUDY: 01/02/2017 TECHNIQUE: CT scan of the abdomen and pelvis was performed from the lung bases to the proximal femurs. Images are reviewed in the axial, sagittal, and coronal planes. IV contrast was not administered for this examination. A dose lowering technique was utilized adhering to the principles of ALARA. CT DOSE: 1089.72 mGy.cm FINDINGS: Lower chest: The heart is normal in size and configuration, without pericardial effusion. The lung bases and pleural spaces are clear. Liver: There is mild hepatic steatosis. The liver is mildly enlarged. No focal hepatic masses are visualized. Gallbladder: Surgically absent Spleen: Normal in size and attenuation. Pancreas: Unremarkable. Adrenal glands: Unremarkable. Kidneys: There is a punctate mid pole left renal calculus. There is a nonobstructing 4 mm lower pole left renal calculus. No ureteral or bladder calculi are visualized. Bowel: There are no transition zones indicate bowel obstruction. There is no acute diverticulitis. By history the appendix is surgically absent. Peritoneum: There is no intraperitoneal free air or abdominal ascites. Vasculature: The abdominal aorta is normal in course and caliber. Adenopathy: There is a stable left common iliac lymph node which remains the upper limits of normal in size. There is no pathologic adenopathy by size criteria. Pelvic viscera: There is a 36 mm left ovarian cyst statistically functional. Skeletal structures: There are few scattered sclerotic densities, statistically representing bone islands. IMPRESSION: 1. Nonobstructing left renal calculi 2. No evidence of bowel obstruction. No evidence of free air 3. No acute inflammatory changes 4. 36 mm left ovarian cyst the chest with functional Electronically signed by: Keyshawn Toure M.D. 05/15/2017 6:09 PM Dictated Date/Time: 05/15/2017 6:04 PM
[2017-05-15] MEDS ORDERED: ONDANSETRON INJ 2 MG/ML 2 ML VIAL IV STA (18:17)
[2017-05-15] MEDS ORDERED: SODIUM CHLORIDE 0.9% 500ML 500 ML IV STA (18:18)
[2017-05-15] MEDS ORDERED: ONDA4TAB46 PO (18:21)
[2017-05-15] MEDS ORDERED: EPP3/2 IM (19:41)
[2017-05-15 19:52] VITALS: BP 137/97; PULSE 97; TEMP 36.7; O2SAT 99
--- NOTE | 2017-05-15 19:59 | EMERGENCY ROOM VISIT NOTE ---
History Report prepared by Geremias: Ela Ho Under the Supervision of: Dr. Feroz Roberts D.O. First contact with patient: 16:56 Chief Complaint: ABDOMINAL PAIN Stated Complaint: ABD PAIN, VOMITING, DIZZY History of Present Illness The patient is a 41 year old female who presents to the Emergency Room with complaints of intermittent abdominal pain for the past 1.5 weeks. The patient states that she has had nausea and vomiting for the past 3 weeks. These symptoms are worse after eating. Over the past week and a half she has had epigastric abdominal pain that she describes as sharp. She states that this pain goes straight through into her back. She rates her pain as an 8/10 in severity. She went to the walk in clinic at [facility] 4 days ago for evaluation of her symptoms. She had blood work and a CT scan that was negative. Pt denies headache, change in vision, fevers, shortness of breath, urinary symptoms, hematochezia, and melena. Source of History: patient Onset: 1.5 weeks ago Position: abdomen Symptom Intensity: 8/10 Quality: sharp Timing: intermittent Modifying Factors (Worsening): eating Associated Symptoms: + nausea, + vomiting, + back pain, No fevers, No headache, No SOB, No melena, No hematochezia, No urinary symptoms Review of Systems See HPI for pertinent positives & negatives. A total of 10 systems reviewed and were otherwise negative. Past Medical & Surgical Medical Problems: (1) Asthma (2) Chest pain (3) DVT (deep venous thrombosis) (4) Hypothyroid (5) Spinal injury Family History Cancer Diabetes mellitus Hypertension Kidney disease Social History Smoking Status: Never Smoker Alcohol Use: occasionally Drug Use: none Marital Status: single Housing Status: lives alone Occupation Status: employed Current/Historical Medications Scheduled Citalopram (Citalopram Hydrobromide), 20 MG PO QAM Levothyroxine Sodium (Levothyroxine Sodium), 137 MCG PO QAM Meloxicam (Mobic), 15 MG PO DAILY Pregabalin (Lyrica), 25 MG PO DAILY Scheduled PRN Albuterol Hfa (Ventolin Hfa), 2 PUFFS INH Q6H PRN for SOB/Wheezing Epinephrine (Epipen), 0.3 MG IM UD PRN for ALLERGIC REACTION Lorazepam (Lorazepam), 0.5 MG PO BID PRN for Anxiety Ondansetron Hcl (Zofran), 4 MG PO TID PRN for Nausea Allergies Coded Allergies: Clindamycin (Verified Allergy, Severe, RED FACE, WHEEZING, 01/02/17) Hydrocodone (Verified Allergy, Severe, RED FACE, WHEEZING, 01/02/17) Iodinated Diagnostic Agents (Verified Allergy, Severe, anaphylactic, ) Tramadol (Verified Allergy, Severe, RED FACE, WHEEZING, 01/02/17) Metaxalone (Verified Allergy, Intermediate, flushed, red, wheezy, nauseous., 01/02/17) Sulfa Antibiotics (Verified Allergy, Intermediate, red face, wheezing, 01/02/17) Codeine (Verified Allergy, Mild, WHEEZING, 01/02/17) Shellfish (Verified Allergy, Mild, ., 01/02/17) Eucalyptus Oil (Verified Adverse Reaction, Intermediate, skin pedro, gets red., 01/02/17) Ketorolac Tromethamine (Verified Adverse Reaction, Intermediate, RED FACE , 01/02/17) Metoclopramide (Verified Adverse Reaction, Intermediate, INCREASED HEART RATE, 01/02/17) ONLY IV Fentanyl (Verified Adverse Reaction, Unknown, HOT/SICK, 01/02/17) Physical Exam Vital Signs Date Time Temp Pulse Resp B/P (MAP) Pulse Ox O2 Delivery O2 Flow Rate FiO2 05/15/17 19:52 36.7 97 18 137/97 99 05/15/17 18:27 97 18 137/97 99 Room Air 05/15/17 16:52 36.7 97 20 149/102 99 Room Air Physical Exam GENERAL: Laying on right side, tearful, alert, well appearing, well nourished, minimal distress, non-toxic EYE EXAM: normal conjunctiva. OROPHARYNX: no exudate, no erythema, lips, buccal mucosa, and tongue normal and mucous membranes are moist NECK: supple, no nuchal rigidity, no adenopathy, non-tender LUNGS: Clear to auscultation. Normal chest wall mechanics HEART: no murmurs, S1 normal and S2 normal ABDOMEN: abdomen soft, minimal tenderness periumbilically to none when distracted, normo-active bowel sounds, no masses, no rebound or guarding. BACK: Back is symmetrical on inspection and there is no deformity, no midline tenderness, no CVA tenderness. SKIN: no rashes and no bruising UPPER EXTREMITIES: upper extremities are grossly normal. LOWER EXTREMITIES: No pitting edema. NEURO EXAM: Normal sensorium, cranial nerves II-XII grossly intact, normal speech, no gross weakness of arms, no gross weakness of legs. Medical Decision & Procedures ER Provider Diagnostic Interpretation: Radiology results as stated below per my review and the radiologist's interpretation: CT SCAN OF THE ABDOMEN AND PELVIS WITHOUT CONTRAST CLINICAL HISTORY: Generalized abdominal pain, vomiting, nausea COMPARISON STUDY: 01/02/2017 TECHNIQUE: CT scan of the abdomen and pelvis was performed from the lung bases to the proximal femurs. Images are reviewed in the axial, sagittal, and coronal planes. IV contrast was not administered for this examination. A dose lowering technique was utilized adhering to the principles of ALARA. CT DOSE: 1089.72 mGy.cm FINDINGS: Lower chest: The heart is normal in size and configuration, without pericardial effusion. The lung bases and pleural spaces are clear. Liver: There is mild hepatic steatosis. The liver is mildly enlarged. No focal hepatic masses are visualized. Gallbladder: Surgically absent Spleen: Normal in size and attenuation. Pancreas: Unremarkable. Adrenal glands: Unremarkable. Kidneys: There is a punctate mid pole left renal calculus. There is a nonobstructing 4 mm lower pole left renal calculus. No ureteral or bladder calculi are visualized. Bowel: There are no transition zones indicate bowel obstruction. There is no acute diverticulitis. By history the appendix is surgically absent. Peritoneum: There is no intraperitoneal free air or abdominal ascites. Vasculature: The abdominal aorta is normal in course and caliber. Adenopathy: There is a stable left common iliac lymph node which remains the upper limits of normal in size. There is no pathologic adenopathy by size criteria. Pelvic viscera: There is a 36 mm left ovarian cyst statistically functional. Skeletal structures: There are few scattered sclerotic densities, statistically representing bone islands. IMPRESSION: 1. Nonobstructing left renal calculi 2. No evidence of bowel obstruction. No evidence of free air 3. No acute inflammatory changes 4. 36 mm left ovarian cyst the chest with functional Electronically signed by: Keyshawn Toure M.D. 05/15/2017 6:09 PM Dictated Date/Time: 05/15/2017 6:04 PM Laboratory Results 05/15/17 17:22 Red Blood Count 4.93, Mean Corpuscular Volume 85.2, Mean Corpuscular Hemoglobin 28.2, Mean Corpuscular Hemoglobin Concent 33.1, Mean Platelet Volume 9.5, Neutrophils (%) (Auto) 61.3, Lymphocytes (%) (Auto) 23.7, Monocytes (%) (Auto) 10.0, Eosinophils (%) (Auto) 4.1, Basophils (%) (Auto) 0.4, Neutrophils # (Auto ) 5.13, Lymphocytes # (Auto) 1.98, Monocytes # (Auto) 0.84, Eosinophils # (Auto ) 0.34, Basophils # (Auto) 0.03 05/15/17 17:22 Test 05/15/17 17:05 05/15/17 17:22 Urine Color YELLOW Urine Appearance CLOUDY (CLEAR) Urine pH 6.0 (4.5-7.5) Urine Specific [place] 1.024 (1.000-1.030) Urine Protein NEG (NEG) Urine Glucose (UA) NEG (NEG) Urine Ketones NEG (NEG) Urine Occult Blood NEG (NEG) Urine Nitrite NEG (NEG) Urine Bilirubin NEG (NEG) Urine Urobilinogen NEG (NEG) Urine Leukocyte Esterase TRACE (NEG) Urine WBC (Auto) 5-10 /hpf (0-5) Urine RBC (Auto) 0-4 /hpf (0-4) Urine Hyaline Casts (Auto) 1-5 /lpf (0-5) Urine Epithelial Cells (Auto) >30 /lpf (0-5) Urine Bacteria (Auto) NEG (NEG) Urine Test NEG (NEG) White Blood Count 8.36 K/uL (4.8-10.8) Red Blood Count 4.93 M/uL (4.2-5.4) Hemoglobin 13.9 g/dL (12.0-16.0) Hematocrit 42.0 % (37-47) Mean Corpuscular Volume 85.2 fL (80-100) Mean Corpuscular Hemoglobin 28.2 pg (25-34) Mean Corpuscular Hemoglobin Concent 33.1 g/dl (32-36) Platelet Count 299 K/uL (130-400) Mean Platelet Volume 9.5 fL (7.4-10.4) Neutrophils (%) (Auto) 61.3 % Lymphocytes (%) (Auto) 23.7 % Monocytes (%) (Auto) 10.0 % Eosinophils (%) (Auto) 4.1 % Basophils (%) (Auto) 0.4 % Neutrophils # (Auto) 5.13 K/uL (1.4-6.5) Lymphocytes # (Auto) 1.98 K/uL (1.2-3.4) Monocytes # (Auto) 0.84 K/uL (0.11-0.59) Eosinophils # (Auto) 0.34 K/uL (0-0.5) Basophils # (Auto) 0.03 K/uL (0-0.2) RDW Standard Deviation 41.4 fL (36.4-46.3) RDW Coefficient of Variation 13.4 % (11.5-14.5) Immature Granulocyte % (Auto) 0.5 % Immature Granulocyte # (Auto) 0.04 K/uL (0.00-0.02) Anion Gap 8.0 mmol/L (3-11) Est Creatinine Clear Calc Drug Dose 89.0 ml/min Estimated GFR () 78.6 Estimated GFR (Non- 67.8 BUN/Creatinine Ratio 14.4 (10-20) Calcium Level 9.1 mg/dl (8.5-10.1) Total Bilirubin 0.2 mg/dl (0.2-1) Direct Bilirubin < 0.1 mg/dl (0-0.2) Aspartate Amino Transf (AST/SGOT) 11 U/L (15-37) Alanine Aminotransferase (ALT/SGPT) 30 U/L (12-78) Alkaline Phosphatase 100 U/L (45-117) Total Protein 7.2 gm/dl (6.4-8.2) Albumin 3.4 gm/dl (3.4-5.0) Lipase 232 U/L (73-393) Laboratory results per my review. Medications Administered Medications (Trade) Dose Ordered Sig/Babar Route Start Time Stop Time Status Last Admin Dose Admin Al Hydroxide/Mg Hydroxide (Maalox Susp) 30 ml STK-MED ONCE .ROUTE 05/15/17 17:26 05/15/17 17:27 DC 05/15/17 17:31 30 ML Lidocaine HCl (Viscous Lidocaine 2% Soln) 20 ml STK-MED ONCE .ROUTE 05/15/17 17:26 05/15/17 17:27 DC 05/15/17 17:31 20 ML Ondansetron HCl (Zofran Inj) 4 mg NOW STAT IV 05/15/17 18:17 05/15/17 18:18 DC 05/15/17 18:27 4 MG Sodium Chloride 500 ml @ 999 mls/hr Q31M STAT IV 05/15/17 18:18 05/15/17 18:48 DC 05/15/17 18:27 999 MLS/HR ED Course ED COURSE: Vital signs were reviewed and showed hypertensive. The patients medical record was reviewed The above diagnostic studies were performed and reviewed. ED treatments and interventions as stated above. 165: The patient was evaluated in room B11B. A complete history and physical examination was performed. 171: GI Cocktail 24 ml PO 171: Tylenol 500 mg PO - pt refused. 1816: Zofran 4 mg IV 1818: NSS 500 ml @ 999 mls/hr IV 1820: Upon reevaluation, the patient is resting comfortably. I discussed my findings with the patient and she understands and agrees with the treatment plan. Based on the patients age, coexisting illnesses, exam and lab findings the decision to treat as an outpatient was made. The patient remained stable while under my care. The patient appeared well at the time of discharge. Medical Decision Differential diagnoses includes but is not limited to gastritis, peptic ulcer disease, GERD, gallbladder disease, pancreatitis, small bowel obstruction, acute coronary syndrome, pericarditis, ischemic bowel, irritable bowel disease, irritable bowel syndrome, appendicitis, diverticulitis, malignancy, hernia, urinary tract infection, torsion, /ectopic , perforation, trauma, infectious. Patient is a 41-year-old female who presents to ER for abdominal pain. Patient was seen 4 days ago for the same complaint. Pain has been present for the past 2 weeks. Nausea has been present for the past 3 weeks. Labs were obtained and CBC along with BMP, LFTs, bilirubin lipase was normal. UA was negative. CT of the abdomen and pelvis was completely benign with the exception of a small left ovarian cyst. There is no signs of torsion. Her pain is solely in the epigastric region. Abdominal exam is completely benign. She was given IV fluids, Zofran, GI cocktail and offer Tylenol which she declined. She is on her no narcotics list. She was discharged following an unremarkable workup to follow-up with her PCP as an outpatient.Discussed with Pt concerning signs and symptoms to watch out for. Pt was instructed to follow up with their PCP and discussed with the patient their option to return to the ED at anytime for persistent or worsening symptoms. The appropriate anticipatory guidance and out- patient management, including indications for return to the emergency department , were explained at length to the patient and understood. Medication Reconcilliation Current Medication List: was personally reviewed by me Blood Pressure Screening Patient's blood pressure: Elevated blood pressure Blood pressure disposition: Elevated BP felt to be situational Impression Primary Impression: Abdominal pain Additional Impression: Ovarian cyst Scribe Attestation The scribe's documentation has been prepared under my direction and personally reviewed by me in its entirety. I confirm that the note above accurately reflects all work, treatment, procedures, and medical decision making performed by me. Departure Information Dispostion Home / Self-Care Prescriptions Ondansetron Hcl (ZOFRAN) 4 Mg Tab 4 MG PO TID Y for Nausea, #20 TAB Prov: Feroz Roberts, DO 05/15/17 Referrals No Doctor, Assigned (PCP) Rachelle Calles D.O. Forms Call Back Authorization, HOME CARE DOCUMENTATION FORM, IMPORTANT VISIT INFORMATION Patient Instructions Abdominal Pain - [facility], ED Cyst Ovarian, [facility] Additional Instructions Please follow up with your primary care doctor with in the next 24 hours. Any worsening of your symptoms, please return to the ED immediately. This includes any fevers greater than 100.4, worsening pain, chest pain, shortness breath, persistent nausea, vomiting, unable to eat or drink, or any other concerning signs or symptoms from your standpoint. Please take Zofran as needed for nausea. Please try to remain as hydrated as possible with fluids. CT did show a small left ovarian cyst. I do not believe that this is contributing to your epigastric pain as it is in your left lower quadrant. This is likely functional per CT and he can have this followed up on by your primary care doctor in the next 1-2 weeks. Problem Qualifiers Primary Impression: Abdominal pain Abdominal location: unspecified location Qualified Codes: R10.9 - Unspecified abdominal pain Additional Impression: Ovarian cyst Laterality: unspecified laterality Qualified Codes: N83.209 - Unspecified ovarian cyst, unspecified side
[2017-05-15] MEDS ORDERED: SYN137 PO (21:33)
[2017-05-15] MEDS ORDERED: ATV5X PO (21:33)
[2017-05-15] MEDS ORDERED: CLX/20 PO (21:34)
== END 2017-05-15 19:53 | disposition home or self-care (01) ==
LOC: C.EDB 16:49
DX: R10.9 Unspecified abdominal pain (principal); N83.202 Unspecified ovarian cyst, left side; J45.909 Unspecified asthma, uncomplicated; E03.9 Hypothyroidism, unspecified; Z83.3 Family history of diabetes mellitus; Z82.49 Family history of ischemic heart disease and other diseases of the circulatory system; Z88.5 Allergy status to narcotic agent; Z88.8 Allergy status to other drugs, medicaments and biological substances; Z88.1 Allergy status to other antibiotic agents; Z91.013 Allergy to seafood